=== PATIENT | male | born 1955 | race Caucasian/White ===

== ENCOUNTER 2016-08-01 15:19 | Inpatient (IN) | payer OTHER ==
[2016-08-01] MEDS ORDERED: Aspirin Low Dose CHEW TAB* 81 MG PO ONE (15:34)
--- NOTE | 2016-08-01 16:04 | RAD ---
INDICATION: Palpitations. COMPARISON: Comparison is made with a prior chest x-ray study from April 08, 2015. TECHNIQUE: A portable view of the chest was obtained. FINDINGS: Cardiac and mediastinal contours appear to be within normal limits. There is elevation of the left hemidiaphragm which is progressed from the prior exam. The lungs are clear. No pleural effusion is seen. IMPRESSION: 1. NO EVIDENCE FOR ACUTE FINDING. 2. ELEVATED LEFT HEMIDIAPHRAGM.
[2016-08-01] MEDS ORDERED: Diazepam SYRINGE* 5 MG/ML SYRINGE IV ONE ×2 (16:19→17:50)
[2016-08-01 16:26] LABS: Urine Bilirubin Negative (Negative); Urine Glucose Negative (Negative); Urine Nitrite Negative (Negative)
[2016-08-01 16:26] LABS: Hematocrit 45 % (42-52); Hemoglobin 15.7 g/dl (14.0-18.0); Mean Corpuscular HGB Conc 35 g/dl (31-36); Mean Corpuscular Hemoglobin 33 pg (27-31); Mean Corpuscular Volume 97 fL (80-94); Mean Platelet Volume 9 um3 (7.4-10.4); Red Cell Distribution Width 14 % (10.5-15)
[2016-08-01 16:39] LABS: BUN/Creatinine Ratio 8.6 (8-20); Calcium 8.6 mg/dL (8.6-10.3); EGFR Non-African American 114.3 (>60); Magnesium 1.9 mg/dL (1.9-2.7); Potassium 3.3 mmol/L (3.5-5.0); Total Bilirubin 0.6 mg/dL (0.2-1.0); Troponin I 0.02 ng/mL (<0.04)
[2016-08-01 16:49] LABS: TSH (Thyroid Stimulating Horm) 0.39 mcIU/mL (0.34-5.60)
[2016-08-01] MEDS ORDERED: Diltiazem TAB* 60 MG PO ONE (17:04)
[2016-08-01] MEDS ORDERED: Diltiazem IV* 5 MG/ML 5 ML VIAL (for loading dose/IV Push) (25 MG) IV SLOW PU ONE (17:08)
[2016-08-01] MEDS ORDERED: Diazepam SYRINGE* 5 MG/ML SYRINGE ONE (17:51)
[2016-08-01] MEDS ORDERED: Metoprolol Tartrate IV* 1 MG/ML 5 ML VIAL IV PRN (18:22)
[2016-08-01] MEDS ORDERED: Ondansetron INJ* 2 MG/ML VIAL IV PRN (18:22)
[2016-08-01] MEDS ORDERED: Thiamine IV* 100 MG, Folic Acid IV* 1 MG, Multiple Vitamin IV ADULT* 10 ML in NS 0.9% 1... IV ONE (18:22)
[2016-08-01] MEDS ORDERED: Acetaminophen TAB* 325 MG PO PRN ×2 (18:22)
[2016-08-01] MEDS ORDERED: NS 0.9% 1000 ML* 1,000 ML IV SCH (18:30)
[2016-08-01] MEDS ORDERED: NS 0.9% 1000 ML* 1,000 ML IV ONE (18:32)
[2016-08-01] MEDS ORDERED: Potassium Chlor TAB* 20 MEQ TAB.ER PO ONE (18:33)
[2016-08-01 19:19] LABS: T4 4.48 mcg/mL (6.09-12.23)
[2016-08-01] MEDS: Diazepam TAB(*) 10 MG PO SCH (19:36)
[2016-08-01] MEDS: Carvedilol TAB* 25 MG PO SCH ×2 (21:08→21:18)
[2016-08-01] MEDS: Heparin VIAL(*) 5000 UNITS/ML VIAL (FIVE THOUSAND) SUBCUT SCH (21:18)
--- NOTE | 2016-08-01 21:23 | HP ---
HISTORY AND PHYSICAL: DATE OF ADMISSION: 08/01/16 PRIMARY CARE PROVIDER: Dr. Pino. ATTENDING PHYSICIAN WHILE IN THE HOSPITAL: Dr. Starr Michel * (report dictated by Quirino Machado, GERALDINE). CHIEF COMPLAINT: "Didn't feel right." HISTORY OF PRESENT ILLNESS: Mr. Brown is a 60-year-old male patient with a well-documented history of alcohol abuse. He comes in today. He is intoxicated currently. He is really unable to give a good history, but he says that he came in today because he just did not feel right. When asked him to elaborate on this, he says that "I do not know how to explain it. I just did not feel right." He says he tried drinking 4 beers and smoking some cigarettes thinking that would help him, but he said he just did not feel right. I specifically asked him if he was having any chest pain, shortness of breath, he had been sick recently, any nausea, vomiting, diarrhea, fevers, chills, or cough , and he denied these complaints. He says that he just did not feel right. He decided to come in. He says he has not taken his medications in about a week and a half to 2 weeks. He was evaluated by Dr. Carbone and was found to be in AFib with RVR. His blood pressure was elevated and Dr. Carbone was concerned that he was going through EtOH withdrawal despite him having alcohol level of 312. Because of this, we were asked to evaluate in consult. PAST MEDICAL HISTORY: Significant for: 1. AFib. 2. EtOH abuse. 3. Spinal stenosis. 4. Cervical spine fracture for which he required transfer to [facility]. 5. SVT. 6. Cardiomyopathy. 7. Hypertension. PAST SURGICAL HISTORY: He has had: 1. Wrist surgery. 2. Sounds like he has had a Halo brace placed for the cervical spine fracture which now had been removed. MEDICATIONS: Home meds according to the list that he gave us include: 1. Coreg 25 mg p.o. b.i.d. 2. Losartan 50 mg daily. 3. Benadryl 50 mg p.o. t.i.d. as needed. ALLERGIES TO MEDICATIONS: Include PENICILLIN, TETRACYCLINE, LISINOPRIL, and ATIVAN. FAMILY HISTORY: Both his parents had hypertension. SOCIAL HISTORY: He does drink alcohol on a daily basis. He does not quantify how much. He says it is more than what the average person drinks every day. He does smoke about a pack of cigarettes a day. Surrogate decision maker is his friend, Luca. REVIEW OF SYSTEMS: There is no documented fever. He denied having any significant weight change. There was no double vision. There is no ear discharge. He denied having any rhinorrhea. There is no sore throat. No thyroid enlargement. Denies having any chest pain. There is no orthopnea. No nocturnal dyspnea. There is no abdominal pain. No nausea, no vomiting. No dysuria, no frequency. No seizure, no loss of consciousness. No pruritus and no skin ulcerations. Review of 14 systems completed, all others negative. PHYSICAL EXAMINATION GENERAL: At this time, Mr. Brown is a 60-year-old male patient. He is sitting in the ER stretcher. He does not appear to be in acute distress. VITAL SIGNS: Reveal blood pressure 135/72, pulse 111, respirations 20, O2 sat 99%, and temperature 98.1. HEENT: Head is atraumatic and normocephalic. Eyes: EOMs intact. Sclerae are anicteric and not pale. Throat: Oral mucosa appears to be moist. No oropharyngeal erythema. NECK: Supple. LUNGS: Clear to auscultation bilaterally. No wheezes, rales, or rhonchi. HEART: Sounds S1, S2. Irregularly irregular rate. No murmurs, rubs, or gallops. ABDOMEN: Soft, flat, and nontender. Bowel sounds present. EXTREMITIES: Pulses were 2+ throughout. He is able to move all four extremities , 5/5 strength. NEUROLOGIC: The patient is awake, he is alert, and he is oriented x3, but his words are slurring. He appears to be uncoordinated consistent with alcohol intoxication. Peanut Grader are equal. His tongue is midline. He had no gross focal deficits. SKIN: Intact. DIAGNOSTIC STUDIES/LAB DATA: Today, revealed WBC of 6.0, RBC of 4.70, hemoglobin 15.7, hematocrit of 45, platelet count of 120. The INR was 0.86, the PTT was 30.3. The sodium was 141, potassium 3.3, chloride of 103, bicarb 26 , BUN 6, creatinine of 0.70, glucose 93, lactate 4.4, calcium 8.6. Total bili 0.6. Mag 1.9. AST 70, ALT 47, alk phos 65. Troponin 0.02. Albumin of 4.0. TSH is normal. Urine obtained negative. Toxicology showed an alcohol level of 319. He had a chest x-ray obtained today which revealed no evidence for acute finding , elevated left hemidiaphragm. He had an EKG obtained today as well which showed atrial fibrillation with a rapid ventricular response, rate of 109, PVCs. Old medical records were reviewed. ASSESSMENT AND PLAN: Mr. Brown is a 60-year-old male patient coming in to the ER today with complaints of just not feeling right; on evaluation, found to be in atrial fibrillation with rapid ventricular response and found to be highly intoxicated. He will be admitted under observation status for: 1. Atrial fibrillation with rapid ventricular response: At this point, I will reinstate his Coreg and I will order p.r.n. Lopressor for his atrial fibrillation, for heart rate greater than 100. I am not going to anticoagulate him because of his history of significant falls and multiple trauma from the fall. I think the risk of the bleeding far outweighs the benefit at this point. He can follow up with his primary for this. 2. EtOH abuse with intoxication: At this point, I will go ahead and order banana bag. Put him on a WA protocol and we will continue to follow. 3. Cardiomyopathy: Continue his Coreg and Cozaar. He does not appear to be in failure. We will monitor. 4. Spinal stenosis: P.r.n. Tylenol has been ordered. 5. Hypokalemia: We will go ahead and replace the potassium. 6. Lactic acidosis: Etiology is unclear. I question if this is from the alcohol abuse. He had decreased clearance from his liver. He does not appear to be actively infected. There is no fever. No white count. No obvious source. So, I will just hydrate him and repeat this tonight. 7. DVT prophylaxis: Place him on heparin subcu. 8. Code status: Full code. TIME SPENT: On the admission was approximately 60 minutes; greater than half the time was spent [id number] with the patient obtaining my history and physical, other half the time spent going over the plan of care with the patient and implementing plan of care. I did discuss the plan of care with my attending, Dr. Michel; she is in agreement. QUIRINO MACHADO NP CC: Dr. Pino* [id number]/CPS #: [id number] CARLY
[2016-08-02] MEDS: Diazepam TAB(*) 10 MG PO SCH ×3 (02:07→22:44)
[2016-08-02] MEDS ORDERED: Al Hydrox/Mg Hydrox/Simet LIQ* 30 ML UDC PO PRN (04:26)
[2016-08-02 05:02] LABS: Hematocrit 37 % (42-52); Hemoglobin 12.8 g/dl (14.0-18.0); Mean Corpuscular HGB Conc 34 g/dl (31-36); Mean Corpuscular Hemoglobin 33 pg (27-31); Mean Corpuscular Volume 97 fL (80-94); Mean Platelet Volume 9 um3 (7.4-10.4); Red Blood Count 3.84 10^6/ul (4.0-5.4); Red Cell Distribution Width 14 % (10.5-15); White Blood Count 5.5 10^3/ul (3.5-10.8)
[2016-08-02 05:04] LABS: Add Diff/Slide Review? Slide Review Added; Comments Flag Yes
[2016-08-02 05:18] LABS: BUN/Creatinine Ratio 12.5 (8-20); Calcium 8.1 mg/dL (8.6-10.3); EGFR African American 190.1 (>60); EGFR Non-African American 147.8 (>60); Potassium 3.8 mmol/L (3.5-5.0)
[2016-08-02] MEDS: Heparin VIAL(*) 5000 UNITS/ML VIAL (FIVE THOUSAND) SUBCUT SCH ×3 (05:22→22:32)
[2016-08-02] MEDS: Diazepam TAB(*) 10 MG PO PRN ×3 (06:18→16:20)
[2016-08-02] MEDS: Carvedilol TAB* 25 MG PO SCH ×2 (08:33→20:27)
[2016-08-02] MEDS: Folic Acid TAB* 1 MG PO SCH (08:33)
[2016-08-02] MEDS: Multivitamins/Minerals TAB PO SCH (08:34)
[2016-08-02] MEDS: Famotidine TAB* 20 MG PO SCH ×2 (08:34→08:43)
[2016-08-02] MEDS: Losartan TAB* 25 MG PO SCH (08:34)
[2016-08-02] MEDS: Thiamine TAB* 100 MG TAB PO SCH (08:34)
[2016-08-02] MEDS ORDERED: Thiamine TAB* 100 MG TAB PO SCH (09:00)
--- NOTE | 2016-08-02 14:57 | PN ---
Subjective Date of Service: 08/02/16 Interval History: HOSPITALIST PROGRESS NOTE Patient seen and examined at bedside. He c/o anxiety and is requesting his next Valium. Had some chest pain earlier while drinking orange juice, but now resolved. Family History: Unchanged from Admission Social History: Unchanged from Admission Past Medical History: Unchanged from Admission Objective Active Medications: Acetaminophen (Tylenol Tab*) 650 mg PO Q4H PRN PRN Reason: FEVER/PAIN Al Hydrox/Mg Hydrox/Simethicone (Maalox Plus*) 30 ml PO Q4H PRN PRN Reason: INDIGESTION Last Admin: 08/02/16 04:36 Dose: 30 ml Carvedilol (Coreg Tab*) 25 mg PO BID [facility] Last Admin: 08/02/16 08:33 Dose: 25 mg Diazepam (Valium Tab(*)) 10 mg PO Q12H [facility] PRN Reason: Taper Stop: 08/04/16 14:59 Last Admin: 08/02/16 11:15 Dose: 10 mg Diazepam (Valium Tab(*)) 0 mg PO .PER WAM SCORE PRN; Protocol PRN Reason: AGITATION Last Admin: 08/02/16 08:34 Dose: 5 mg Famotidine (Pepcid Tab*) 20 mg PO DAILY [facility] Last Admin: 08/02/16 08:43 Dose: Not Given Folic Acid (Folvite Tab*) 1 mg PO DAILY [facility] Last Admin: 08/02/16 08:33 Dose: 1 mg Heparin Sodium (Porcine) (Heparin Vial(*)) 5,000 units SUBCUT Q8HR [facility] Last Admin: 08/02/16 14:09 Dose: Not Given Losartan Potassium (Cozaar Tab*) 50 mg PO DAILY [facility] Last Admin: 08/02/16 08:34 Dose: 50 mg Metoprolol Tartrate (Lopressor Iv*) 5 mg IV Q6H PRN PRN Reason: HEART RATE/PULSE Multivitamins/Minerals (Theragran/Minerals Tab*) 1 tab PO DAILY [facility] Last Admin: 08/02/16 08:34 Dose: 1 tab Ondansetron HCl (Zofran Inj*) 4 mg IV Q6H PRN PRN Reason: NAUSEA Last Admin: 08/02/16 00:26 Dose: 4 mg Thiamine HCl (Vitamin B-1 Tab*) 100 mg PO DAILY [facility] Last Admin: 08/02/16 08:34 Dose: 100 mg Vital Signs 08/02/16 14:09 Temperature 98.4 F Pulse Rate 85 Respiratory 16 Rate Blood Pressure 126/79 (mmHg) O2 Sat by Pulse 97 Oximetry Oxygen Devices in Use Now: None Appearance: Elderly male, appears older than stated age, lying in bed in NAD. Eyes: No Scleral Icterus Ears/Nose/Mouth/Throat: Mucous Membranes Moist Neck: Trachea Midline Respiratory: Symmetrical Chest Expansion and Respiratory Effort, Clear to Auscultation Cardiovascular: RRR - Normal S1 and S2 Abdominal: NL Sounds; No Tenderness; No Distention Neurological: Alert and Oriented x 3, NL Muscle Strength and Tone Lines/Tubes/Other Access: Clean, Dry and Intact Peripheral IV Nutrition: Taking PO's Result Diagrams: 08/02/16 04:34 08/02/16 04:34 Assess/Plan/Problems-Billing Assessment: Mr. Brown is a 60yo M with PMH of alcoholism, Afib, spinal stenosis, cervical spine fracture requiring transfer to [facility], cardiomyopathy, HTN, who presented to ED with c/o feeling "funny all over", found to be in Afib RVR and intoxicated with ETOH level 319. - Patient Problems (1) Atrial fibrillation with rapid ventricular response Comment: - Suspect secondary to non-compliance with beta-blockers and withdrawal. - Controlled now on usual Caverdilol dose. - Anticoagulation contraindicated in the setting of active alcoholism and high risk for falls. (2) Alcohol withdrawal Comment: - Continue WAM protocol with Valium. - consult to assist patient with outpatient resources. He's not interested in inpatient rehab. (3) Chest pain Comment: - Suspect GI in nature. - No new EKG changes and serial troponins are negative. - Start Famotidine. (4) DVT prophylaxis Comment: - SQ heparin. (5) Full code status Status and Disposition: Inpatient. Anticipate d/c in AM.
[2016-08-02] MEDS ORDERED: Diazepam TAB(*) 5 MG ONE (22:42)
[2016-08-03] MEDS: Heparin VIAL(*) 5000 UNITS/ML VIAL (FIVE THOUSAND) SUBCUT SCH (06:55)
[2016-08-03] MEDS: Folic Acid TAB* 1 MG PO SCH (08:37)
[2016-08-03] MEDS: Famotidine TAB* 20 MG PO SCH (08:37)
[2016-08-03] MEDS: Carvedilol TAB* 25 MG PO SCH (08:37)
[2016-08-03] MEDS: Thiamine TAB* 100 MG TAB PO SCH (08:38)
[2016-08-03] MEDS: Multivitamins/Minerals TAB PO SCH (08:38)
[2016-08-03] MEDS: Losartan TAB* 25 MG PO SCH (08:38)
[2016-08-03 10:27] VITALS: BP 104/79
[2016-08-03] MEDS ORDERED: Loperamide CAP* 2 MG PO PRN (10:32)
--- NOTE | 2016-08-04 02:57 | DS ---
CC: Dr. Pino DISCHARGE SUMMARY: DATE OF ADMISSION: 08/02/16 DATE OF DISCHARGE: 08/03/16 DISCHARGE DIAGNOSES: 1. Atrial fibrillation with rapid ventricular rate, secondary to noncompliance with medication. 2. Alcohol withdrawal. 3. Alcoholism. 4. Lactic acidosis. 5. Alcohol intoxication. SECONDARY DIAGNOSES: 1. Atrial fibrillation. 2. Alcohol abuse. 3. Spinal stenosis. 4. History of cervical spine fracture following a fall while intoxicated. 5. Supraventricular tachycardia. 6. Cardiomyopathy. 7. Hypertension. MEDICATIONS: 1. Benadryl 50 mg p.o. t.i.d. as needed for itching. 2. Losartan 50 mg p.o. daily. 3. Carvedilol 25 mg p.o. b.i.d. NEW MEDICATIONS: 1. Thiamine 100 mg p.o. daily. 2. Multivitamin 1 tablet p.o. daily. 3. Folic acid 1 mg p.o. daily. 4. Famotidine 20 mg p.o. daily. HOSPITAL COURSE: Mr. Brown is a 60-year-old male with a past medical history stated above who p resented to the emergency room on 08/01/16, with complaints of not feeling right. At the time he ar rived to the emergency room, he was intoxicated, but by the time the hospitalist service was called, there was some suspicion that he was starting to withdrawal. The patient is not compliant with his beta-ericka and was found to be in atrial fibrillation with rapid ventricular rate. He was admitt ed for further evaluation. His carvedilol was resumed at his usual dose with good heart rate control. The patient is not a can didate for anticoagulation due to his history of alcohol abuse and frequent falls including a major one with cervical spine fracture in the past. The patient was on a WA protocol with Valium and he had improvement of his symptoms. He was seen b y a social work supervisor, but he was not interested in any resources at this point. He states that he will be able to quit by himself. He was advised that if he continues to drink, he will have progression of disease, permanent damage and this will possibly cause his . He verbalizes understanding a nd states that he is motivated to quit at this time. PHYSICAL EXAMINATION: Vital Signs: Temperature 98.8, heart rate is 91, respiratory rate 16, oxygen saturation 96% on room air, blood pressure is 104/79. General: The patient is elderly male with di sheveled appearance, sitting up in bed, in no acute distress. CVS: Normal S1 and S2. Regular rate and rhythm. Chest: Breath sounds bilaterally with no added sounds. Abdomen: Soft. Bowel sounds present. Extremities: No edema. Neuro: He is alert, awake, and oriented x3. Able to move all 4 extremities. DIET: Heart-healthy diet. ACTIVITY: As tolerated. DISPOSITION: To home. STATUS WHILE IN THE HOSPITAL: Inpatient. Please keep in mind that this is a summarized version of this patient's hospital stay. He will foll ow up with Dr. Pino on 08/07/16 at 8:40 a.m. If you need more information, please feel free to ca ll me at [phone] or please obtain the full medical records. TIME SPENT: Approximately 45 minutes was spent to complete this discharge. [id number]/[facility] #: [id number]
--- NOTE | 2016-08-09 17:43 | ED ---
Ambrosio Lares Billy, scribed for Roberto Carbone MD on 08/01/16 at 1616 . Complex/Multi-Sys Presentation - HPI Summary HPI Summary: Patient is a 60 year-old male coming to [facility] with a complaint that "nothing feels right" today. He states that he feels very anxious here in the ED. Patient admits to consuming alcohol today. He presents to the ED with rapid afib. Denies any chest pain, nausea, or vomiting. Patient admits to drinking 8 beers a day, and he also states that he has had withdrawal symptoms in the past. He also states that he has stopped taking all of his prescribed medications. - History Of Current Complaint Chief Complaint: EDDysrhythmPalp Time Seen by Provider: 08/01/16 15:34 Hx Obtained From: Patient Onset/Duration: Gradual Onset Timing: Constant Severity Currently: Moderate Severity Initially: Moderate Aggravating Factor(s): n/a Alleviating Factor(s): n/a Associated Signs And Symptoms: Positive: Palpitations, Other - anxious. Negative: Chest Pain, Nausea, Vomiting - Allergies/Home Medications Allergies/Adverse Reactions: Allergies Allergy/AdvReac Type Severity Reaction Status Date / Time Tetracycline Allergy Severe RASH, Verified 05/25/16 13:41 ITCHING, SWELLING Lisinopril Allergy Mild Coughing Verified 05/25/16 13:41 Penicillins Allergy Unknown Unknown Verified 05/25/16 13:41 Reaction Details Lorazepam [From Ativan] Allergy agitation, Verified 05/25/16 13:41 combative Home Medications: Home Medications Carvedilol TAB* [Coreg TAB*] 25 mg PO BID 08/01/16 [History Confirmed 08/01/16] Losartan TAB* [Cozaar TAB*] 50 mg PO DAILY 08/01/16 [History Confirmed 08/01/16] diPHENhydraMINE PO* [Benadryl PO 50 MG CAP*] 50 mg PO TID PRN 08/01/16 [History Confirmed 08/01/16] PMH/Surg Hx/FS Hx/Imm Hx Endocrine/Hematology History: Denies: Hx Anticoagulant Therapy, Hx Diabetes, Hx Thyroid Disease Cardiovascular History: Reports: Hx Atrial Fibrillation, Hx Hypertension Denies: Hx Pacemaker/ICD Respiratory History: Denies: Hx Asthma, Hx Chronic Obstructive Pulmonary Disease (COPD) History: Denies: Hx Dialysis, Hx Renal Disease Sensory History: Reports: Hx Cataracts, Hx Contacts or Glasses, Hx Eye Injury Denies: Hx Hearing Aid Opthamlomology History: Reports: Hx Cataracts, Hx Contacts or Glasses, Hx Eye Injury Neurological History: Denies: Hx Dementia, Hx Developmental Delay, Hx Headaches, Hx Migraine, Hx Nerve Disease, Hx Seizures, Hx Spinal Cord Injury, Hx Transient Ischemic Attacks (TIA), Other Neuro Impairments/Disorders Psychiatric History: Reports: Hx Anxiety, Hx Substance Abuse - ETOH Denies: Hx Panic Disorder, Hx of Violent Episodes Against Others - Cancer History Hx Chemotherapy: No Hx Radiation Therapy: No - Surgical History Surgery Procedure, Year, and Place: Cataract surgery 2+years ago. CARDIAC ABLATION. CSP - FUSION. MOLE FROM ARM - ALL REMOVED - [facility] - Immunization History Date of Tetanus Vaccine: unknown Date of Influenza Vaccine: None Infectious Disease History: No Infectious Disease History: Denies: Hx Hepatitis, Hx Human Immunodeficiency Virus (HIV), Hx of Known/ Suspected MRSA, Hx Shingles, Hx Tuberculosis, Hx Known/Suspected VRE, Hx Known/ Suspected VRSA, History Other Infectious Disease, Traveled Outside the [place] in Last 30 Days - Family History Family History: Notable for fathre with BPH. Mother had chronic pain. Brother of alcohol abuse complications. - Social History Alcohol Use: Daily Alcohol Amount: alcohol abuse Hx Substance Use: No Substance Use Type: Reports: None Substance Use Comment - Amount & Last Used: no known, no tox screen run upon pt presentation to ED Hx Tobacco Use: Yes Smoking Status (MU): Heavy Every Day Tobacco Smoker Type: Cigarettes Length of Time of Smoking/Using Tobacco: 35+ years Have You Smoked in the Last Year: Yes Review of Systems Constitutional: Other - "nothing feels right" Negative: Fever, Chills Negative: Erythema Negative: Ear Ache Positive: Palpitations. Negative: Chest Pain Negative: Shortness Of Breath, Cough Negative: Abdominal Pain, Vomiting, Nausea Negative: dysuria, flank pain Negative: Myalgia, Edema Negative: Rash Positive: Anxious All Other Systems Reviewed And Are Negative: Yes Physical Exam - Summary Physical Exam Summary: Constitutional: Well-developed, Well-nourished, Alert. (-) Distressed Skin: Warm, Dry HENT: Normocephalic; Atraumatic Eyes: Conjunctiva normal Neck: Musculoskeletal ROM normal neck. (-) JVD, (-) Stridor, (-) Tracheal deviation Cardio: Rhythm irregular, rate tachycardia, Heart sounds normal; Intact distal pulses; The pedal pulses are 2+ and symmetric. Radial pulses are 2+ and symmetric. (-) Murmur Pulmonary/Chest wall: Effort normal. (-) Respiratory distress, (-) Wheezes, (-) Rales Abd: Soft, (-) Tenderness, (-) Distension, (-) Guarding, (-) Rebound Musculoskeletal: (-) Edema Lymph: (-) Cervical adenopathy Neuro: Alert, Oriented x3 Psych: Mood and affect Normal Triage Information Reviewed: Yes Vital Signs On Initial Exam: Initial Vitals Temp Pulse Resp BP Pulse Ox 97.5 F 98 20 151/99 98 08/01/16 15:21 08/01/16 15:21 08/01/16 15:21 08/01/16 15:21 08/01/16 15:21 Vital Signs Reviewed: Yes - Pk Coma Scale Coma Scale Total: 15 Diagnostics - Vital Signs Vital Signs Temp Pulse Resp BP Pulse Ox 08/01/16 15:43 99 08/01/16 15:33 98.1 F 111 20 135/72 99 08/01/16 15:21 97.5 F 98 20 151/99 98 - Laboratory Result Diagrams: 08/01/16 15:58 08/01/16 15:58 Lab Statement: Any lab studies that have been ordered have been reviewed, and results considered in the medical decision making process. - Radiology CXR Radiology Interpretation Completed By: Radiologist - EKG 1550 EKG Interpretation: atrial fibrillation 109 bpm, RVR, frequent PVCs Complex Multi-Symp Course/Dx Assessment/Plan: Patient is a 60 year-old male with a history of alcohol abuse coming to [facility] for evaluation of general malaise today. Serum alcohol 319. Patient care discussed with Dr. Zaman who admitted the patient to her services. All medications reviewed this visit. - Diagnoses Provider Diagnoses: Alcohol withdrawal, Atrial fibrillation with RVR - Physician Notifications Discussed Care Of Patient With: Dr. Stephens (hospitalist) at 1755: accepts admission. Discharge - Discharge Plan Condition: Stable Disposition: ADMITTED TO [facility] Referrals: Dexter Pino MD [Primary Care Provider] - The documentation as recorded by the Ambrosio hays Billy accurately reflects the service I personally performed and the decisions made by me, Roberto Carbone MD.
== END 2016-08-03 11:54 | disposition home or self-care (01) | DRG 201 ==
LOC: ED 15:19 → MEDTELE 18:17 → OBSVTOIN 08-02 15:08
PROVIDERS: ADMIT Pediatrics; ATTEND Internal Medicine
DX: I48.91 Unspecified atrial fibrillation (principal); F10.239 Alcohol dependence with withdrawal, unspecified; E87.2 Acidosis; I42.9 Cardiomyopathy, unspecified; F10.229 Alcohol dependence with intoxication, unspecified; I47.1 Supraventricular tachycardia; Z91.81 History of falling; Y90.9 Presence of alcohol in blood, level not specified; M48.00 Spinal stenosis, site unspecified; I10 Essential (primary) hypertension; Z88.0 Allergy status to penicillin; Z88.1 Allergy status to other antibiotic agents; Z88.8 Allergy status to other drugs, medicaments and biological substances; Z82.49 Family history of ischemic heart disease and other diseases of the circulatory system; F17.210 Nicotine dependence, cigarettes, uncomplicated; E87.6 Hypokalemia; F41.9 Anxiety disorder, unspecified; Y90.8 Blood alcohol level of 240 mg/100 ml or more; Z91.14 Patient's other noncompliance with medication regimen
CPT/HCPCS: 36415; 71010; 80048; 80053; 80320; 81003; 83605; 83735; 84436; 84443; 84484; 85025; 85610; 85730; 93005; A9270-GY; G0378; G0480; J1644; J2405; J3360

== ENCOUNTER 2016-10-08 09:09 | Inpatient (IN) | payer OTHER ==
[2016-10-08] MEDS ORDERED: Aspirin Low Dose CHEW TAB* 81 MG PO ONE (09:29)
[2016-10-08] MEDS ORDERED: Thiamine IV* 100 MG, Folic Acid IV* 1 MG, Multiple Vitamin IV ADULT* 10 ML in NS 0.9% 1... IV ONE (09:50)
[2016-10-08] MEDS ORDERED: Diazepam TAB(*) 5 MG PO ONE (10:07)
--- NOTE | 2016-10-08 10:08 | ED ---
Palpitations / Dysrhythmia - HPI Summary HPI Summary: presents to ED today via ambulance c/o weakness he was unable to get up to mow the lawn. Patient states he drinks beer every day--he does not use other drugs has been drinking daily from teenage years--last sober about 2 years ago-- denies cp, sob, nausea, vomiting, diarrhea, Does report an unwitnessed fall "a few days ago" and his memory of the incident was his partner asking "what was he doing on the kitchen floor" Patient is here today hoping to be admitted and detox from alcohol - History of Current Complaint Chief Complaint: EDGeneral Time Seen by Provider: 10/08/16 09:30 Hx Obtained From: Patient Onset/Duration: Gradual Onset - of weakness-has a [place] [facility] history with a-fib but does report being unsure if he takes his medications or not, Lasting Weeks, Worse Since - this morning he reports increased weakness Timing: Constant Severity Initially: Mild Severity Currently: Mild Character: Irregular Aggravating: Nothing Alleviating: Nothing Associated Signs & Symptoms: Syncope - weakness - Allergy/Home Medications Allergies/Adverse Reactions: Allergies Allergy/AdvReac Type Severity Reaction Status Date / Time Tetracycline Allergy Severe RASH, Verified 10/08/16 09:28 ITCHING, SWELLING Lisinopril Allergy Mild Coughing Verified 10/08/16 09:28 Penicillins Allergy Unknown Unknown Verified 10/08/16 09:28 Reaction Details Lorazepam [From Ativan] Allergy agitation, Verified 10/08/16 09:28 combative Home Medications: Home Medications Carvedilol [Coreg] 25 mg PO BID 10/08/16 [History Confirmed 10/08/16] Famotidine [Pepcid] 20 mg PO DAILY 10/08/16 [History Confirmed 10/08/16] Losartan TAB* [Cozaar TAB*] 50 mg PO DAILY 10/08/16 [History Confirmed 10/08/16] Meloxicam 7.5 mg PO Q12H PRN 10/08/16 [History Confirmed 10/08/16] PMH/Surg Hx/FS Hx/Imm Hx Previously Healthy: No Endocrine/Hematology History: Denies: Hx Anticoagulant Therapy, Hx Diabetes, Hx Thyroid Disease Cardiovascular History: Reports: Hx Atrial Fibrillation, Hx Hypertension Denies: Hx Pacemaker/ICD Respiratory History: Denies: Hx Asthma, Hx Chronic Obstructive Pulmonary Disease (COPD) History: Denies: Hx Dialysis, Hx Renal Disease Sensory History: Reports: Hx Cataracts, Hx Contacts or Glasses, Hx Eye Injury Denies: Hx Hearing Aid Opthamlomology History: Reports: Hx Cataracts, Hx Contacts or Glasses, Hx Eye Injury Neurological History: Denies: Hx Dementia, Hx Developmental Delay, Hx Headaches, Hx Migraine, Hx Nerve Disease, Hx Seizures, Hx Spinal Cord Injury, Hx Transient Ischemic Attacks (TIA), Other Neuro Impairments/Disorders Psychiatric History: Reports: Hx Anxiety, Hx Substance Abuse - ETOH Denies: Hx Panic Disorder, Hx of Violent Episodes Against Others - Cancer History Hx Chemotherapy: No Hx Radiation Therapy: No - Surgical History Surgery Procedure, Year, and Place: Cataract surgery 2+years ago. CARDIAC ABLATION. CSP - FUSION. MOLE FROM ARM - ALL REMOVED - [facility] - Immunization History Date of Tetanus Vaccine: unknown Date of Influenza Vaccine: None Infectious Disease History: No Infectious Disease History: Denies: Hx Hepatitis, Hx Human Immunodeficiency Virus (HIV), Hx of Known/ Suspected MRSA, Hx Shingles, Hx Tuberculosis, Hx Known/Suspected VRE, Hx Known/ Suspected VRSA, History Other Infectious Disease, Traveled Outside the [place] in Last 30 Days - Family History Known Family History: Positive: Unknown - Level 5 Caveat due to EtOH intoxication. Family History: Notable for fathre with BPH. Mother had chronic pain. Brother of alcohol abuse complications. - Social History Occupation: Retired Lives: With Family Alcohol Use: Daily Alcohol Amount: 12 beers daily Hx Substance Use: No Substance Use Type: Reports: None Substance Use Comment - Amount & Last Used: no known, no tox screen run upon pt presentation to ED Hx Tobacco Use: Yes Smoking Status (MU): Heavy Every Day Tobacco Smoker Type: Cigarettes Length of Time of Smoking/Using Tobacco: 35+ years Have You Smoked in the Last Year: Yes Review of Systems Constitutional: Other Positive: Fatigue Eyes: Negative ENT: Negative Cardiovascular: Other Positive: Palpitations Respiratory: Negative Gastrointestinal: Negative Genitourinary: Negative Musculoskeletal: Other Positive: Other - weakness Skin: Negative Positive: Weakness Psychological: Other All Other Systems Reviewed And Are Negative: Yes Physical Exam Triage Information Reviewed: Yes Vital Signs On Initial Exam: Initial Vitals Temp Pulse Resp BP Pulse Ox 97.2 F 99 18 112/79 96 10/08/16 09:15 10/08/16 09:15 10/08/16 09:15 10/08/16 09:15 10/08/16 09:15 Vital Signs Reviewed: Yes Appearance: Positive: No Pain Distress - no acute pain, Ill-Appearing - chronic poor wellness Skin: Positive: Warm, Skin Color Reflects Adequate Perfusion, Soft Head/Face: Positive: Normal Head/Face Inspection. Negative: Temporal Artery Tenderness, TMJ Tenderness Eyes: Positive: Normal, EOMI, ROSA, Conjunctiva Clear ENT: Positive: Normal ENT inspection, Hearing grossly normal, Pharynx normal, TMs normal. Negative: Nasal congestion, Nasal drainage, Tonsillar swelling, Tonsillar exudate, Trismus, Muffled/hoarse voice, Dental tenderness Neck: Positive: Supple, Nontender, No Lymphadenopathy, Other: - negative bruits Respiratory/Lung Sounds: Positive: Clear to Auscultation, Breath Sounds Present. Negative: Unable to speak in full sentences Cardiovascular: Positive: Pulses are Symmetrical in both Upper and Lower Extremities, IRR. Negative: Murmur, Leg Edema Left, Leg Edema Right Abdomen Description: Positive: Nontender, Soft. Negative: CVA Tenderness (R), CVA Tenderness (L), Pulsatile Mass Bowel Sounds: Positive: Present Musculoskeletal: Positive: Normal, Other - general weakness. Negative: Tamara Sign Left, Tamara Sign Right, Edema Left, Edema Right Neurological: Positive: Alert, Oriented to Person Place, Time Psychiatric: Positive: Normal, Affect/Mood Appropriate AVPU Assessment: Alert - [place] Coma Scale Best Eye Response: 4 - Spontaneous Best Motor Response: 6 - Obeys Commands Best Verbal Response: 5 - Oriented Coma Scale Total: 15 Diagnostics - Vital Signs Vital Signs Temp Pulse Resp BP Pulse Ox 10/08/16 10:00 23 108/81 10/08/16 09:59 97 10/08/16 09:30 93 20 112/83 98 10/08/16 09:23 95 26 97 10/08/16 09:22 97.2 F 96 18 112/79 98 10/08/16 09:21 112/79 10/08/16 09:15 97.2 F 99 18 112/79 96 - Laboratory Result Diagrams: 10/08/16 10:00 10/08/16 10:00 Lab Statement: Any lab studies that have been ordered have been reviewed, and results considered in the medical decision making process. Course/Dx - Course Assessment/Plan: [place] [facility] [place] Diagnoses Provider Diagnoses: Alcohol withdrawal, Acute alcohol abuse, Atrial fibrillation, Weakness generalized - Physician Notifications Discussed Care Of Patient With: Starr Torres Time Discussed With Above Provider: 10:30 Admit/Transition Orders Completed By ED Provider: No Discharge - Discharge Plan Condition: Fair Disposition: ADMITTED TO [facility]
[2016-10-08 10:15] LABS: Hematocrit 45 % (42-52); Hemoglobin 15.4 g/dl (14.0-18.0); Mean Corpuscular HGB Conc 34 g/dl (31-36); Mean Corpuscular Hemoglobin 35 pg (27-31); Mean Corpuscular Volume 102 fL (80-94); Mean Platelet Volume 10 um3 (7.4-10.4); Red Blood Count 4.44 10^6/ul (4.0-5.4); Red Cell Distribution Width 14 % (10.5-15); White Blood Count 7.3 10^3/ul (3.5-10.8)
[2016-10-08 10:22] LABS: Comments Flag Yes
[2016-10-08 10:23] LABS: Add Diff/Slide Review? Slide Review Added
--- NOTE | 2016-10-08 10:24 | RAD ---
Indication: Weakness. Atrial fibrillation. Alcohol abuse. Comparison: August 01, 2016 Technique: Upright AP 1000 hours Report: Unchanged mild elevation of the LEFT hemidiaphragm. No pulmonary consolidation, focal pulmonary lesion, pleural effusion, pneumothorax. Upper normal heart size accounting for AP technique. Unremarkable central pulmonary vasculature and mediastinal contours accounting for mild leftward rotation. Anterior cervical fusion hardware noted. Healed RIGHT eighth rib fracture laterally. IMPRESSION: No evidence for acute intrathoracic disease.
[2016-10-08 10:29] LABS: Albumin 4.1 g/dL (3.2-5.2); BUN/Creatinine Ratio 5.3 (8-20); Calcium 9.1 mg/dL (8.6-10.3); EGFR African American 135.3 (>60); EGFR Non-African American 105.2 (>60); Globulin 3.2 g/dL (2-4); Total Bilirubin 0.9 mg/dL (0.2-1.0); Total Protein 7.3 g/dL (6.4-8.9)
[2016-10-08 10:32] LABS: Troponin I 0.02 ng/mL (<0.04)
[2016-10-08 10:43] LABS: Urine Bilirubin Negative (Negative); Urine Glucose Negative (Negative); Urine Nitrite Negative (Negative)
--- NOTE | 2016-10-08 10:49 | RAD ---
HISTORY: Fall, memory loss COMPARISONS: Head CT dated February 17, 2016 TECHNIQUE: Multiple contiguous axial CT scans were obtained of the head without intravenous contrast. FINDINGS: HEMORRHAGE/INFARCT: There is no hemorrhage or acute infarct. MASSES/SHIFT: There is no mass or shift. EXTRA-AXIAL SPACES: There are no extra-axial fluid collections. SULCI AND VENTRICLES: There is diffuse and proportional enlargement of the sulci and ventricles. CEREBRUM: There is hypoattenuation of the periventricular and subcortical white matter. BRAINSTEM: There are no focal parenchymal abnormalities. CEREBELLUM: There are no focal parenchymal abnormalities. VESSELS: The vessels are grossly normal. PARANASAL SINUSES: The paranasal sinuses are clear. ORBITS: The orbits are unremarkable. BONES AND SOFT TISSUE: No bone or soft tissue abnormalities are noted. OTHER: None IMPRESSION: NO ACUTE INTRACRANIAL PATHOLOGY.
[2016-10-08 10:59] LABS: Benzodiazepine Urine Screen None Detected (None Detect)
[2016-10-08 11:03] LABS: TSH (Thyroid Stimulating Horm) 0.51 mcIU/mL (0.34-5.60)
[2016-10-08] MEDS ORDERED: Thiamine IV* 100 MG/ML 2 ML VIAL IM ONE (11:13)
[2016-10-08 11:15] LABS: Magnesium 1.7 mg/dL (1.9-2.7); Potassium 4.2 mmol/L (3.5-5.0)
[2016-10-08] MEDS ORDERED: LORazepam TAB(*) 1 MG PO SCH (12:00)
[2016-10-08] MEDS ORDERED: Magnesium Sulfate 2 GM IV* 2 GM/50 ML BAG IVPB ONE (14:15)
[2016-10-08] MEDS ORDERED: NS 0.9% 1000 ML* 1,000 ML IV SCH (14:30)
[2016-10-08] MEDS: Diazepam TAB(*) 10 MG PO PRN ×2 (19:37→21:40)
[2016-10-08] MEDS ORDERED: Carvedilol TAB* 25 MG PO SCH (21:00)
[2016-10-08] MEDS: Carvedilol TAB* 25 MG PO SCH (21:38)
[2016-10-08] MEDS: Heparin VIAL(*) 5000 UNITS/ML VIAL (FIVE THOUSAND) SUBCUT SCH (21:42)
--- NOTE | 2016-10-09 00:58 | HP ---
CC: Dexter Pino MD * HISTORY AND PHYSICAL: DATE OF ADMISSION: 10/08/16 PRIMARY CARE PROVIDER: Dexter Pino MD. ATTENDING PHYSICIAN: Alanna Mejias DO* (dictated by Deandra Richardson NP). CHIEF COMPLAINT: Request for alcohol detox. HISTORY OF PRESENT ILLNESS: Mr. Brown is a 61-year-old male with past medical history significant for atrial fibrillation, alcohol abuse, hypertension and cardiomyopathy who presented to the emergency room today with request for alcohol detox. The patient denies any recent fevers, chills, chest pain, palpitations, shortness of breath, nausea, vomiting, diarrhea or urinary symptoms. He does report dizziness and lightheadedness for the past few weeks in addition to blurry vision since having cataract surgery in the past, but no new visual changes. The patient presented to the emergency room for detox. While in the emergency room, patient had labs remarkable for thrombocytopenia with a platelet count of 95,000 consistent with previous labs. The patient was noted to have hypomagnesemia and negative urinalysis, the serum alcohol was 411. While in the emergency room, patient received p.o. Valium, IM thiamine and was started on a banana bag. Based of the patient's presentation and request for alcohol withdrawal, the hospitalists were asked to evaluate the patient for admission. PAST MEDICAL HISTORY: 1. Atrial fibrillation. 2. Alcohol abuse. 3. Spinal stenosis. 4. Cervical spine fracture. 5. SVT. 6. Cardiomyopathy. 7. Hypertension. 8. Skin cancer. PAST SURGICAL HISTORY: 1. Status post ORIF of his wrist. 2. Status post procedure for his cervical spine fracture, which sounds to be a halo placement. 3. Status post bilateral cataract extractions. 4. Status post excision of moles. HOME MEDICATIONS: Include: 1. Coreg 25 mg oral twice daily. 2. Losartan 50 mg oral daily. 3. Benadryl 50 mg oral 3 times daily as needed for sleep or allergies. 4. Folic acid 1 mg oral daily. 5. Thiamine 100 mg oral daily. 6. Multivitamin 1 tablet oral daily. ALLERGIES: TETRACYCLINE, LISINOPRIL, PENICILLIN, and LORAZEPAM. FAMILY HISTORY: The patient reports his parents had a history of hypertension. Mother with history of diabetes mellitus. He denies any family history of cancer. SOCIAL HISTORY: The patient smoked a pack a day for approximately 38 years. The patient denies recreational drug use. The patient daily drinks 5 to 10 beers. The patient is retired and lives with his significant other, Starr Cain, who will be his surrogate decision maker in the event he is unable to decisions for himself. REVIEW OF SYSTEMS: I performed a 14-point review of systems, all the pertinent positives and negatives are mentioned in history of present illness. The remaining review of systems is negative. PHYSICAL EXAMINATION GENERAL APPEARANCE: The patient is alert, pleasant, appears to be in no acute distress. VITAL SIGNS: Temperature 97.3, heart rate 90, respiratory rate 18, O2 sat 100% on room air, blood pressure 127/90. HEENT: Normocephalic, atraumatic. Pupils are equal and reactive to light. Extraocular movements are intact. RESPIRATORY: There is no accessory muscle use and the lungs are clear to auscultation bilateral. CARDIOVASCULAR: Regular rate and rhythm. S1, S2 present. There is no murmurs , rubs, or gallops heard. ABDOMEN: Soft, nontender, nondistended. There are bowel sounds present x4. EXTREMITIES: There is no lower extremity edema. DP, PT, femoral pulses are 2+ and symmetric. MUSCULOSKELETAL: There is no clubbing or cyanosis noted. The patient exhibits good strength in all extremities. NEUROLOGIC: The patient is alert and oriented x4. Cranial nerves II to XII are grossly intact. PSYCHOLOGICAL: The patient is calm and cooperative but is restless. SKIN: There are no rashes or abnormalities seen. DIAGNOSTIC STUDIES/LABORATORY DATA: Sodium 136, potassium 4.2, chloride 100, CO2 of 24, BUN 4, creatinine 0.75, glucose 89, magnesium 1.7. Alcohol 411, AST 408 and ALT 255. White blood cell count 7.3, hemoglobin 15.4, hematocrit 45 and platelet count 95,000. Urinalysis is negative. EKG shows an atrial fibrillation with a rate of 87. This EKG is similar to previous EKG from 08/02/16. Chest x-ray from today. Radiologist's impression: No intrathoracic disease. Head CT from today. Radiologist's impression: No intracranial pathology. IMPRESSION: Mr. Brown is a 61-year-old male with past medical history significant for atrial fibrillation, alcohol abuse, cardiomyopathy and hypertension who presents to emergency room requesting alcohol detox. The patient will be admitted as an observation for alcohol detox. ASSESSMENT/PLAN: 1. Alcohol withdrawal. The patient will be placed on a WAM protocol with Valium. He will be placed on seizure precautions. He will receive a banana bag and then IV hydration. He will be continued on folic acid, thiamine and multivitamin. 2. Hypertension. The patient is currently normotensive. We will continue his carvedilol with hold parameters in addition to his losartan. 3. Atrial fibrillation. The patient will be continued on his home carvedilol. The patient is currently not anticoagulated. He has a CHADS-VASc2 score of 1 point, placing the patient at a stroke risk of 0.6% per year in greater 90,000 patients. The risk of this patient being anticoagulated with his alcoholism and his risk of falls is believed to be higher than his risk of stroke, so we will hold on anticoagulation. 4. Fluids, electrolytes and nutrition. The patient will be on a heart healthy diet. 5. Code status. Full code. 6. DVT prophylaxis. The patient is at moderate risk and will have subcu heparin. 7. Disposition: Observation. TIME SPENT: Time spent for this admission was 60 minutes and greater than half of that was spent [id number] with the patient discussing medications, past medical history and the events leading up to his arrival today and performing a physical examination. The case has been reviewed with the attending, Dr. Mejias, who agrees with the plan of care. Reviewed by GINA GUNN 10/09/16 1827 [id number]/[facility] #: [id number] CARLY
[2016-10-09] MEDS: Diazepam TAB(*) 10 MG PO PRN ×7 (01:55→20:32)
[2016-10-09 05:58] LABS: BUN/Creatinine Ratio 7.4 (8-20); Calcium 8.4 mg/dL (8.6-10.3); EGFR African American 151.5 (>60); EGFR Non-African American 117.8 (>60); Magnesium 1.8 mg/dL (1.9-2.7); Potassium 3.8 mmol/L (3.5-5.0)
[2016-10-09] MEDS: Heparin VIAL(*) 5000 UNITS/ML VIAL (FIVE THOUSAND) SUBCUT SCH ×3 (06:11→20:33)
[2016-10-09] MEDS: Famotidine TAB* 20 MG PO SCH (08:40)
[2016-10-09] MEDS: Thiamine TAB* 100 MG TAB PO SCH (08:40)
[2016-10-09] MEDS: Carvedilol TAB* 25 MG PO SCH ×2 (08:40→20:32)
[2016-10-09] MEDS: Folic Acid TAB* 1 MG PO SCH (08:40)
[2016-10-09] MEDS: Multivitamins/Minerals TAB PO SCH (08:40)
[2016-10-09] MEDS: Losartan TAB* 25 MG PO SCH (08:40)
--- NOTE | 2016-10-09 15:12 | PN ---
Subjective Date of Service: 10/09/16 Interval History: Patient seen and examined at bedside. Pt states that he feel anxious and is having tremors. Denies fever, chills, shortness of breath, chest discomfort, N/V /D. Family History: Unchanged from Admission Social History: Unchanged from Admission Past Medical History: Unchanged from Admission Objective Active Medications: Acetaminophen (Tylenol Tab*) 650 mg PO Q4H PRN Reason: PAIN Carvedilol (Coreg Tab*) 25 mg PO BID SEB Diazepam (Valium Tab(*)) 0 mg PO .PER WAM SCORE PRN Reason: WITHDRAWAL - ALCOHOL Famotidine (Pepcid Tab*) 20 mg PO DAILY SEB Folic Acid (Folvite Tab*) 1 mg PO DAILY SEB Heparin Sodium (Porcine) (Heparin Vial(*)) 5,000 units SUBCUT Q8HR SEB Losartan Potassium (Cozaar Tab*) 50 mg PO DAILY SEB Melatonin (Melatonin (Nf)) 3 mg PO BEDTIME PRN Reason: SLEEP Multivitamins/Minerals (Theragran/Minerals Tab*) 1 tab PO DAILY SEB Ondansetron HCl (Zofran Inj*) 4 mg IV Q6H PRN Reason: NAUSEA Thiamine HCl (Vitamin B-1 Tab*) 100 mg PO DAILY SEB Tramadol HCl (Ultram*) 50 mg PO Q6H PRN Reason: PAIN Vital Signs 10/08/16 10/08/16 10/08/16 16:05 18:09 19:37 Temperature 98.5 F 98.5 F Pulse Rate 105 98 Respiratory 20 20 20 Rate Blood Pressure 120/74 101/67 (mmHg) O2 Sat by Pulse 94 96 Oximetry 10/08/16 10/08/16 10/08/16 19:38 21:30 21:37 Temperature 98.4 F 98.4 F Pulse Rate 77 97 Respiratory 20 21 20 Rate Blood Pressure 114/74 124/73 (mmHg) O2 Sat by Pulse 95 96 Oximetry 10/08/16 10/08/16 10/08/16 21:40 23:35 23:40 Temperature 98.0 F Pulse Rate 91 Respiratory 22 22 18 Rate Blood Pressure 104/66 (mmHg) O2 Sat by Pulse 99 Oximetry 10/09/16 10/09/16 10/09/16 01:55 03:49 03:54 Temperature 99.1 F Pulse Rate 95 93 Respiratory 18 22 22 Rate Blood Pressure 128/90 134/100 (mmHg) O2 Sat by Pulse 96 96 Oximetry 10/09/16 10/09/16 10/09/16 03:55 05:50 05:53 Temperature 99.8 F Pulse Rate 85 Respiratory 20 21 18 Rate Blood Pressure 140/85 (mmHg) O2 Sat by Pulse 97 Oximetry 10/09/16 10/09/16 10/09/16 07:50 08:00 08:35 Temperature 99.1 F Pulse Rate 90 Respiratory 16 16 17 Rate Blood Pressure 157/109 (mmHg) O2 Sat by Pulse 97 Oximetry 10/09/16 10/09/16 10/09/16 08:39 10:25 10:34 Temperature 98.5 F Pulse Rate 91 Respiratory 16 17 15 Rate Blood Pressure 115/80 (mmHg) O2 Sat by Pulse 97 Oximetry 10/09/16 10/09/16 10/09/16 10:39 12:10 12:34 Temperature Pulse Rate 77 Respiratory 18 17 16 Rate Blood Pressure 111/86 (mmHg) O2 Sat by Pulse 98 Oximetry Oxygen Devices in Use Now: None Appearance: NAD, laying in bed Eyes: PERRLA Ears/Nose/Mouth/Throat: Mucous Membranes Moist Respiratory: Symmetrical Chest Expansion and Respiratory Effort, Clear to Auscultation Cardiovascular: NL Sounds; No Murmurs; No JVD, RRR Abdominal: NL Sounds; No Tenderness; No Distention Extremities: No Edema Skin: No Rash or Ulcers Neurological: Alert and Oriented x 3, NL Muscle Strength and Tone Lines/Tubes/Other Access: Clean, Dry and Intact Peripheral IV - site benign Nutrition: Taking PO's Result Diagrams: 10/08/16 10:00 10/09/16 05:30 Assess/Plan/Problems-Billing Assessment: Mr. Brown is a 61 yo male PMH a fib, alcohol abuse, cardiomyopathy and HTN who presented to the emergency room requesting alcohol detox. - Patient Problems (1) Alcohol withdrawal Code(s): F10.239 - ALCOHOL DEPENDENCE WITH WITHDRAWAL, UNSPECIFIED SNOMED Code (s): 265093401 Comment: - WA score 5-9 - consult to assist patient with outpatient resources. He's not interested in inpatient rehab. - Continue [facility] protocol with Valium. (2) Electrolyte abnormality Code(s): E87.8 - OTH DISORDERS OF ELECTROLYTE AND FLUID BALANCE, NEC SNOMED Code(s): 727413666 Comment: - Hypomagnesia. Will give replacement and recheck labs in the AM (3) Atrial fibrillation Code(s): I48.91 - UNSPECIFIED ATRIAL FIBRILLATION SNOMED Code(s): 77719140 Comment: - Rate controlled - Pt is not anticoagulated at home - Continue carvedilol (4) Alcoholic hepatitis Code(s): K70.10 - ALCOHOLIC HEPATITIS WITHOUT ASCITES SNOMED Code(s): 136481955 Comment: - The patient has evidence of alcoholic hepatitis. - Will continue to intermittently follow LFTs. (5) Thrombocytopenia Code(s): D69.6 - THROMBOCYTOPENIA, UNSPECIFIED SNOMED Code(s): 605649546 Comment: - Appears to be near baseline - Suspect related to alcohol use (6) DVT prophylaxis Code(s): HJV0784 - SNOMED Code(s): 296677821 Comment: - SQ heparin. (7) Full code status Code(s): Z78.9 - OTHER SPECIFIED HEALTH STATUS SNOMED Code(s): 329212968 Status and Disposition: OBV to Inpatient. Discharge to home when medically stable.
[2016-10-09] MEDS ORDERED: Magnesium Sulfate 2 GM IV* 2 GM/50 ML BAG IVPB ONE (15:30)
[2016-10-09] MEDS: traMADol TAB* 50 MG PO PRN (20:04)
[2016-10-10] MEDS: Diazepam TAB(*) 10 MG PO PRN ×11 (00:12→23:59)
[2016-10-10] MEDS: Heparin VIAL(*) 5000 UNITS/ML VIAL (FIVE THOUSAND) SUBCUT SCH ×3 (04:46→21:11)
[2016-10-10 05:18] LABS: BUN/Creatinine Ratio 12.5 (8-20); Blood Urea Nitrogen 10 mg/dL (6-24); CO2 Carbon Dioxide 24 mmol/L (22-32); Calcium 8.6 mg/dL (8.6-10.3); Chloride 101 mmol/L (101-111); EGFR African American 125.6 (>60); EGFR Non-African American 97.6 (>60); Glucose 92 mg/dL (70-100); Sodium 133 mmol/L (133-145)
[2016-10-10 05:24] LABS: Anion Gap 8 mmol/L (2-11)
[2016-10-10 06:33] LABS: Magnesium 1.8 mg/dL (1.9-2.7)
[2016-10-10] MEDS ORDERED: Mouth Piece, Nicotine* 1 EACH CARTRIDGE ONE (08:01)
[2016-10-10] MEDS ORDERED: Nicotine Inhaler* 10 MG AMP ONE (08:02)
[2016-10-10] MEDS: Folic Acid TAB* 1 MG PO SCH (08:31)
[2016-10-10] MEDS: Thiamine TAB* 100 MG TAB PO SCH (08:31)
[2016-10-10] MEDS: Famotidine TAB* 20 MG PO SCH (08:31)
[2016-10-10] MEDS: Multivitamins/Minerals TAB PO SCH (08:31)
[2016-10-10] MEDS: Losartan TAB* 25 MG PO SCH (08:31)
[2016-10-10] MEDS: Carvedilol TAB* 25 MG PO SCH ×2 (08:31→21:11)
[2016-10-10] MEDS ORDERED: Mouth Piece, Nicotine* 1 EACH CARTRIDGE INH ONE (09:00)
--- NOTE | 2016-10-10 18:08 | PN ---
Subjective Date of Service: 10/10/16 Interval History: Mr. Brown is feeling well at the time of my examination. He denies any complaint including chest pain, SOB, nausea, or abdominal pain. He is optimistic about stopping drinking. Family History: Unchanged from Admission Social History: Unchanged from Admission Past Medical History: Unchanged from Admission Objective Active Medications: Acetaminophen (Tylenol Tab*) 650 mg PO Q4H PRN Carvedilol (Coreg Tab*) 25 mg PO BID SEB Diazepam (Valium Tab(*)) 0 mg PO .PER WAM SCORE PRN; Protocol Famotidine (Pepcid Tab*) 20 mg PO DAILY SEB Folic Acid (Folvite Tab*) 1 mg PO DAILY SEB Heparin Sodium (Porcine) (Heparin Vial(*)) 5,000 units SUBCUT Q8HR SEB Losartan Potassium (Cozaar Tab*) 50 mg PO DAILY SEB Melatonin (Melatonin (Nf)) 3 mg PO BEDTIME PRN Multivitamins/Minerals (Theragran/Minerals Tab*) 1 tab PO DAILY SEB Nicotine (Nicotine Inhaler*) 10 mg INH Q2H PRN Ondansetron HCl (Zofran Inj*) 4 mg IV Q6H PRN Thiamine HCl (Vitamin B-1 Tab*) 100 mg PO DAILY SEB Tramadol HCl (Ultram*) 50 mg PO Q6H PRN Vital Signs 10/09/16 10/09/16 10/09/16 18:03 18:23 20:00 Temperature 99.1 F Pulse Rate 79 Respiratory 18 16 17 Rate Blood Pressure 119/76 (mmHg) O2 Sat by Pulse 97 Oximetry 10/09/16 10/09/16 10/09/16 20:04 20:19 20:32 Temperature 97.6 F Pulse Rate 79 Respiratory 16 16 17 Rate Blood Pressure 117/82 (mmHg) O2 Sat by Pulse 99 Oximetry 10/09/16 10/09/16 10/09/16 22:04 22:11 22:32 Temperature 98.7 F Pulse Rate 78 Respiratory 16 16 16 Rate Blood Pressure 93/72 (mmHg) O2 Sat by Pulse 97 Oximetry 10/10/16 10/10/16 10/10/16 00:09 00:10 00:12 Temperature Pulse Rate 84 87 Respiratory 16 Rate Blood Pressure 118/91 (mmHg) O2 Sat by Pulse 100 100 Oximetry 10/10/16 10/10/16 10/10/16 02:05 02:12 03:50 Temperature Pulse Rate 104 Respiratory 16 16 Rate Blood Pressure 127/86 (mmHg) O2 Sat by Pulse 93 Oximetry 10/10/16 10/10/16 10/10/16 03:52 05:51 06:23 Temperature Pulse Rate 93 90 95 Respiratory 18 Rate Blood Pressure 110/63 145/89 (mmHg) O2 Sat by Pulse 94 77 97 Oximetry 10/10/16 10/10/16 10/10/16 06:27 08:00 08:13 Temperature Pulse Rate 105 Respiratory 18 18 18 Rate Blood Pressure 130/107 (mmHg) O2 Sat by Pulse 99 Oximetry 10/10/16 10/10/16 10/10/16 08:27 08:30 10:20 Temperature 98.9 F Pulse Rate 94 Respiratory 18 18 18 Rate Blood Pressure 119/87 (mmHg) O2 Sat by Pulse 96 Oximetry 10/10/16 10/10/16 10/10/16 10:26 10:30 12:26 Temperature Pulse Rate Respiratory 16 19 18 Rate Blood Pressure (mmHg) O2 Sat by Pulse Oximetry 10/10/16 10/10/16 10/10/16 12:29 12:31 14:20 Temperature 98.9 F 98.5 F Pulse Rate 115 87 Respiratory 17 18 18 Rate Blood Pressure 115/94 109/82 (mmHg) O2 Sat by Pulse 97 97 Oximetry 10/10/16 10/10/16 10/10/16 14:31 16:06 16:38 Temperature 98.0 F Pulse Rate 90 Respiratory 18 16 16 Rate Blood Pressure 110/89 (mmHg) O2 Sat by Pulse 98 Oximetry Oxygen Devices in Use Now: None Appearance: Male sitting up on bed in NAD Eyes: No Scleral Icterus Ears/Nose/Mouth/Throat: Mucous Membranes Moist Neck: Trachea Midline Respiratory: Symmetrical Chest Expansion and Respiratory Effort, Clear to Auscultation Cardiovascular: NL Sounds; No Murmurs; No JVD, No Edema Abdominal: NL Sounds; No Tenderness; No Distention Extremities: No Edema Skin: No Rash or Ulcers Neurological: Alert and Oriented x 3, NL Muscle Strength and Tone Nutrition: Taking PO's Result Diagrams: 10/08/16 10:00 10/10/16 06:07 Assess/Plan/Problems-Billing Assessment: Mr. Brown is a 61 yo male PMH a fib, alcohol abuse, cardiomyopathy and HTN who presented to the emergency room requesting alcohol detox. - Patient Problems (1) Alcohol withdrawal Comment: - Continues to require valium for withdrawal symptoms. - SW consult to assist patient with outpatient resources. He's not interested in inpatient rehab. (2) Alcoholic hepatitis Comment: - Asymptomatic bump in LFTs, suspect alcoholic hepatitis. - Recheck labs in AM. (3) Electrolyte abnormality Comment: - Hypomagnesia. Will give replacement and recheck labs in the AM (4) Hypertension Comment: - BP well controlled. - Continue carvedilol and losartan. (5) Atrial fibrillation Comment: - Rate controlled. - Pt is not anticoagulated at home. - Continue carvedilol. (6) Thrombocytopenia Comment: - Appears to be near baseline. - Suspect related to alcohol use. (7) Full code status (8) DVT prophylaxis Comment: - SQ heparin. Status and Disposition: OBV to Inpatient. Discharge to home when medically stable.
[2016-10-10] MEDS ORDERED: Potassium Chlor TAB* 20 MEQ TAB.ER PO ONE (18:11)
[2016-10-10] MEDS: Ondansetron INJ* 2 MG/ML VIAL IV PRN (20:55)
[2016-10-10] MEDS: Nicotine Inhaler* 10 MG AMP INH PRN (21:10)
[2016-10-11] MEDS: Diazepam TAB(*) 10 MG PO PRN ×7 (02:09→22:48)
[2016-10-11] MEDS: traMADol TAB* 50 MG PO PRN (05:35)
[2016-10-11 05:43] LABS: Albumin 3.7 g/dL (3.2-5.2); BUN/Creatinine Ratio 13.5 (8-20); Calcium 9.2 mg/dL (8.6-10.3); EGFR African American 137.4 (>60); EGFR Non-African American 106.8 (>60); Globulin 2.6 g/dL (2-4); Potassium 3.2 mmol/L (3.5-5.0); Total Protein 6.3 g/dL (6.4-8.9)
[2016-10-11] MEDS: Heparin VIAL(*) 5000 UNITS/ML VIAL (FIVE THOUSAND) SUBCUT SCH ×3 (05:43→21:26)
--- NOTE | 2016-10-11 07:33 | PN ---
Subjective Date of Service: 10/11/16 Interval History: Mr. Brown denies complaint today. He specifically denies chest pain, SOB, nausea, or abdominal pain. Family History: Unchanged from Admission Social History: Unchanged from Admission Past Medical History: Unchanged from Admission Objective Active Medications: Acetaminophen (Tylenol Tab*) 650 mg PO Q4H PRN Carvedilol (Coreg Tab*) 25 mg PO BID [facility] Diazepam (Valium Tab(*)) 0 mg PO .PER WAM SCORE PRN; Protocol Famotidine (Pepcid Tab*) 20 mg PO DAILY [facility] Folic Acid (Folvite Tab*) 1 mg PO DAILY [facility] Heparin Sodium (Porcine) (Heparin Vial(*)) 5,000 units SUBCUT Q8HR [facility] Losartan Potassium (Cozaar Tab*) 50 mg PO DAILY [facility] Magnesium Oxide (Magox 400 Tab*) 400 mg PO DAILY [facility] Melatonin (Melatonin (Nf)) 3 mg PO BEDTIME PRN Multivitamins/Minerals (Theragran/Minerals Tab*) 1 tab PO DAILY [facility] Nicotine (Nicotine Inhaler*) 10 mg INH Q2H PRN Ondansetron HCl (Zofran Inj*) 4 mg IV Q6H PRN Thiamine HCl (Vitamin B-1 Tab*) 100 mg PO DAILY [facility] Tramadol HCl (Ultram*) 50 mg PO Q6H PRN Vital Signs 10/10/16 10/10/16 10/10/16 08:00 08:13 08:27 Temperature Pulse Rate 105 Respiratory 18 18 18 Rate Blood Pressure 130/107 (mmHg) O2 Sat by Pulse 99 Oximetry 10/10/16 10/10/16 10/10/16 08:30 10:20 10:26 Temperature 98.9 F Pulse Rate 94 Respiratory 18 18 16 Rate Blood Pressure 119/87 (mmHg) O2 Sat by Pulse 96 Oximetry 10/10/16 10/10/16 10/10/16 10:30 12:26 12:29 Temperature 98.9 F Pulse Rate 115 Respiratory 19 18 17 Rate Blood Pressure 115/94 (mmHg) O2 Sat by Pulse 97 Oximetry 10/10/16 10/10/16 10/10/16 12:31 14:20 14:31 Temperature 98.5 F Pulse Rate 87 Respiratory 18 18 18 Rate Blood Pressure 109/82 (mmHg) O2 Sat by Pulse 97 Oximetry 10/10/16 10/10/16 10/10/16 16:06 16:38 18:27 Temperature 98.0 F 97.7 F Pulse Rate 90 95 Respiratory 16 16 24 Rate Blood Pressure 110/89 153/99 (mmHg) O2 Sat by Pulse 98 99 Oximetry 10/10/16 10/10/16 10/10/16 18:28 18:38 20:00 Temperature Pulse Rate Respiratory 16 17 18 Rate Blood Pressure (mmHg) O2 Sat by Pulse Oximetry 10/10/16 10/10/16 10/10/16 20:14 20:28 21:10 Temperature 98.0 F Pulse Rate 91 Respiratory 28 28 28 Rate Blood Pressure 107/72 (mmHg) O2 Sat by Pulse 97 Oximetry 10/10/16 10/10/16 10/10/16 22:13 22:30 23:10 Temperature 98.2 F Pulse Rate 90 Respiratory 20 20 18 Rate Blood Pressure 124/89 (mmHg) O2 Sat by Pulse 97 Oximetry 10/10/16 10/10/16 10/10/16 23:53 23:56 23:59 Temperature 97.3 F Pulse Rate 39 Respiratory 28 22 28 Rate Blood Pressure 139/98 (mmHg) O2 Sat by Pulse 98 Oximetry 10/11/16 10/11/16 10/11/16 00:30 01:59 02:00 Temperature Pulse Rate Respiratory 20 22 18 Rate Blood Pressure (mmHg) O2 Sat by Pulse Oximetry 10/11/16 10/11/16 10/11/16 02:02 02:09 04:00 Temperature Pulse Rate 70 Respiratory 18 24 20 Rate Blood Pressure 145/113 (mmHg) O2 Sat by Pulse 96 Oximetry 10/11/16 10/11/16 10/11/16 04:06 04:09 04:12 Temperature 98.1 F Pulse Rate 81 Respiratory 20 22 20 Rate Blood Pressure 140/95 (mmHg) O2 Sat by Pulse 100 Oximetry 10/11/16 10/11/16 10/11/16 05:35 05:42 05:45 Temperature Pulse Rate 62 Respiratory 18 22 22 Rate Blood Pressure 144/103 (mmHg) O2 Sat by Pulse 99 Oximetry 10/11/16 06:12 Temperature Pulse Rate Respiratory 20 Rate Blood Pressure (mmHg) O2 Sat by Pulse Oximetry Oxygen Devices in Use Now: None Appearance: Unkempt male sitting up in chair eating breakfast in NAD Eyes: No Scleral Icterus Ears/Nose/Mouth/Throat: Mucous Membranes Moist Neck: Trachea Midline Respiratory: Symmetrical Chest Expansion and Respiratory Effort, Clear to Auscultation Cardiovascular: NL Sounds; No Murmurs; No JVD, No Edema Abdominal: NL Sounds; No Tenderness; No Distention Lymphatic: No Cervical Adenopathy Extremities: No Edema Skin: No Rash or Ulcers Neurological: Alert and Oriented x 3, NL Muscle Strength and Tone Nutrition: Taking PO's Result Diagrams: 10/08/16 10:00 10/11/16 05:21 Assess/Plan/Problems-Billing Assessment: Mr. Brown is a 61 yo male PMH a fib, alcohol abuse, cardiomyopathy and HTN who presented to the emergency room requesting alcohol detox. - Patient Problems (1) Alcohol withdrawal Comment: - Continues to require valium for withdrawal symptoms. - Appreciate SW consult, not interested in inpatient rehab. (2) Alcoholic hepatitis Comment: - Now trending down. Asymptomatic elevation in LFTs, suspect alcoholic hepatitis. (3) Electrolyte abnormality Comment: - Continue potassium supplementation. (4) Hypertension Comment: - BP well controlled. - Continue carvedilol and losartan. (5) Atrial fibrillation Comment: - Rate controlled. - Pt is not anticoagulated at home. - Continue carvedilol. (6) Thrombocytopenia Comment: - Appears to be near baseline. - Suspect related to alcohol use. (7) Full code status (8) DVT prophylaxis Comment: - SQ heparin. Status and Disposition: Inpatient. Discharge to home when medically stable.
[2016-10-11] MEDS: Nicotine Inhaler* 10 MG AMP INH PRN (08:46)
[2016-10-11] MEDS: Carvedilol TAB* 25 MG PO SCH (08:47)
[2016-10-11] MEDS: Losartan TAB* 25 MG PO SCH (08:47)
[2016-10-11] MEDS: Famotidine TAB* 20 MG PO SCH (08:47)
[2016-10-11] MEDS: Multivitamins/Minerals TAB PO SCH (08:48)
[2016-10-11] MEDS: Folic Acid TAB* 1 MG PO SCH (08:48)
[2016-10-11] MEDS: Thiamine TAB* 100 MG TAB PO SCH (08:48)
[2016-10-11] MEDS: Magnesium Oxide TAB* 400 MG PO SCH (08:48)
--- NOTE | 2016-10-11 11:23 | PN ---
Progress Note - Progress Note Date of Service: 10/11/16 Note: Called to bedside by patient's primary RN for hypotension. Patient's initial SBP this morning was in the 140s. On repeat check after morning meds ( including coreg, losartan and valium), patient's SBP dropped into the 70s. Patient stated he was a bit lightheaded and tired but he remained oriented. On review, patient has had intermittent drops in BP to the 90s but not this low. Plan for 1L fluid bolus and to decrease losartan.
[2016-10-11] MEDS ORDERED: Losartan TAB* 25 MG PO SCH (12:00)
[2016-10-11] MEDS: Carvedilol TAB* 6.25 MG PO SCH (20:54)
[2016-10-11] MEDS: Potassium Chlor TAB* 20 MEQ TAB.ER PO SCH (20:54)
[2016-10-12] MEDS: Diazepam TAB(*) 10 MG PO PRN ×5 (00:47→23:02)
[2016-10-12] MEDS: Heparin VIAL(*) 5000 UNITS/ML VIAL (FIVE THOUSAND) SUBCUT SCH ×4 (05:17→22:58)
[2016-10-12 06:26] LABS: BUN/Creatinine Ratio 14.7 (8-20); EGFR African American 151.5 (>60); EGFR Non-African American 117.8 (>60); Potassium 3.6 mmol/L (3.5-5.0)
[2016-10-12] MEDS: Magnesium Oxide TAB* 400 MG PO SCH (08:34)
[2016-10-12] MEDS: Potassium Chlor TAB* 20 MEQ TAB.ER PO SCH ×2 (08:34→21:23)
[2016-10-12] MEDS: Thiamine TAB* 100 MG TAB PO SCH (08:34)
[2016-10-12] MEDS: Carvedilol TAB* 6.25 MG PO SCH ×2 (08:34→21:22)
[2016-10-12] MEDS: Folic Acid TAB* 1 MG PO SCH (08:34)
[2016-10-12] MEDS: Multivitamins/Minerals TAB PO SCH (08:34)
[2016-10-12] MEDS: Famotidine TAB* 20 MG PO SCH (08:34)
--- NOTE | 2016-10-12 10:00 | PN ---
Subjective Date of Service: 10/12/16 Interval History: This is a 61 yo gentleman with alcoholism, cardiomyopathy with last EF 40-45%, afib, and HTN who was admitted with ETOH w/d. He is still requiring multiple doses of Valium. He reports he is still tremulous, slightly anxious and nauseous. No vomiting, abd pain. No seizure activity. Objective Active Medications: Acetaminophen (Tylenol Tab*) 650 mg PO Q4H PRN PRN Reason: PAIN Carvedilol (Coreg Tab*) 12.5 mg PO 0900,2100 [facility] Last Admin: 10/12/16 08:34 Dose: 12.5 mg Diazepam (Valium Tab(*)) 0 mg PO .PER WAM SCORE PRN; Protocol PRN Reason: WITHDRAWAL - ALCOHOL Last Admin: 10/12/16 04:41 Dose: 5 mg Famotidine (Pepcid Tab*) 20 mg PO DAILY [facility] Last Admin: 10/12/16 08:34 Dose: 20 mg Folic Acid (Folvite Tab*) 1 mg PO DAILY [facility] Last Admin: 10/12/16 08:34 Dose: 1 mg Heparin Sodium (Porcine) (Heparin Vial(*)) 5,000 units SUBCUT Q8HR [facility] Last Admin: 10/12/16 05:17 Dose: 5,000 units Magnesium Oxide (Magox 400 Tab*) 400 mg PO DAILY [facility] Last Admin: 10/12/16 08:34 Dose: 400 mg Melatonin (Melatonin (Nf)) 3 mg PO BEDTIME PRN PRN Reason: SLEEP Multivitamins/Minerals (Theragran/Minerals Tab*) 1 tab PO DAILY [facility] Last Admin: 10/12/16 08:34 Dose: 1 tab Nicotine (Nicotine Inhaler*) 10 mg INH Q2H PRN PRN Reason: CRAVINGS Last Admin: 10/11/16 08:46 Dose: 10 mg Ondansetron HCl (Zofran Inj*) 4 mg IV Q6H PRN PRN Reason: NAUSEA Last Admin: 10/10/16 20:55 Dose: 4 mg Potassium Chloride (Klor Con Er Tab*) 20 meq PO BID [facility] Last Admin: 10/12/16 08:34 Dose: 20 meq Thiamine HCl (Vitamin B-1 Tab*) 100 mg PO DAILY [facility] Last Admin: 10/12/16 08:34 Dose: 100 mg Tramadol HCl (Ultram*) 50 mg PO Q6H PRN PRN Reason: PAIN Last Admin: 10/11/16 05:35 Dose: 50 mg Vital Signs: Temp Pulse Resp BP Pulse Ox 98.0 F 82 16 130/96 98 10/12/16 08:05 10/12/16 08:05 10/12/16 09:15 10/12/16 08:05 10/12/16 08:05 Oxygen Devices in Use Now: None Appearance: Ill appearing 61 yo gentleman attempting to feed himself breakfast in NAD Respiratory: Symmetrical Chest Expansion and Respiratory Effort, Clear to Auscultation Cardiovascular: NL Sounds; No Murmurs; No JVD, RRR Abdominal: NL Sounds; No Tenderness; No Distention Extremities: No Edema Skin: No Rash or Ulcers Neurological: - - tremulous, slightly fatigued Result Diagrams: 10/08/16 10:00 10/12/16 05:34 Assess/Plan/Problems-Billing Assessment: Mr. Brown is a 61 yo male PMH a fib, alcohol abuse, cardiomyopathy and HTN who presented to the emergency room requesting alcohol detox. - Patient Problems (1) Alcohol withdrawal Comment: Still actively withdrawing, requiring multiple doses of Valium Patient is not interested in rehab, he would like to return home after completing withdrawal Appreciate SW consultation (2) Cardiomyopathy Comment: Last EF 40-45% No acute exacerbation (3) Atrial fibrillation Comment: Rate controlled. Pt is not anticoagulated at home. Continue carvedilol. (4) Hypertension Comment: Slightly hypotensive over the last 48 hrs Losartan held at this time Carvedilol continued (5) DVT prophylaxis Comment: SQ heparin. Status and Disposition: Inpatient. Will likely require additional 2-3 LOS
[2016-10-12] MEDS: traMADol TAB* 50 MG PO PRN (21:32)
[2016-10-13] MEDS: Diazepam TAB(*) 10 MG PO PRN ×5 (01:02→19:09)
[2016-10-13] MEDS: traMADol TAB* 50 MG PO PRN ×2 (04:54→19:08)
[2016-10-13] MEDS: Heparin VIAL(*) 5000 UNITS/ML VIAL (FIVE THOUSAND) SUBCUT SCH ×3 (05:23→22:50)
--- NOTE | 2016-10-13 08:10 | PN ---
Subjective Date of Service: 10/13/16 Interval History: No new complaints. He still required 3 doses of Valium overnight. He has started to demonstrate some insight in to his current situation. He denies cough, CP, SOB or abd pain. Some mild nausea and anxiety. Objective Active Medications: Acetaminophen (Tylenol Tab*) 650 mg PO Q4H PRN PRN Reason: PAIN Carvedilol (Coreg Tab*) 12.5 mg PO 0900,2100 [facility] Last Admin: 10/12/16 21:22 Dose: 12.5 mg Diazepam (Valium Tab(*)) 0 mg PO .PER WAM SCORE PRN; Protocol PRN Reason: WITHDRAWAL - ALCOHOL Last Admin: 10/13/16 06:25 Dose: 10 mg Famotidine (Pepcid Tab*) 20 mg PO DAILY [facility] Last Admin: 10/12/16 08:34 Dose: 20 mg Folic Acid (Folvite Tab*) 1 mg PO DAILY [facility] Last Admin: 10/12/16 08:34 Dose: 1 mg Heparin Sodium (Porcine) (Heparin Vial(*)) 5,000 units SUBCUT Q8HR [facility] Last Admin: 10/13/16 05:23 Dose: Not Given Magnesium Oxide (Magox 400 Tab*) 400 mg PO DAILY [facility] Last Admin: 10/12/16 08:34 Dose: 400 mg Melatonin (Melatonin (Nf)) 3 mg PO BEDTIME PRN PRN Reason: SLEEP Multivitamins/Minerals (Theragran/Minerals Tab*) 1 tab PO DAILY [facility] Last Admin: 10/12/16 08:34 Dose: 1 tab Nicotine (Nicotine Inhaler*) 10 mg INH Q2H PRN PRN Reason: CRAVINGS Last Admin: 10/11/16 08:46 Dose: 10 mg Ondansetron HCl (Zofran Inj*) 4 mg IV Q6H PRN PRN Reason: NAUSEA Last Admin: 10/10/16 20:55 Dose: 4 mg Potassium Chloride (Klor Con Er Tab*) 20 meq PO BID [facility] Last Admin: 10/12/16 21:23 Dose: 20 meq Thiamine HCl (Vitamin B-1 Tab*) 100 mg PO DAILY [facility] Last Admin: 10/12/16 08:34 Dose: 100 mg Tramadol HCl (Ultram*) 50 mg PO Q6H PRN PRN Reason: PAIN Last Admin: 10/13/16 04:54 Dose: 50 mg Vital Signs: Temp Pulse Resp BP Pulse Ox 98.4 F 96 20 155/113 97 10/13/16 06:31 10/13/16 06:31 10/13/16 06:31 10/13/16 06:31 10/13/16 06:31 Oxygen Devices in Use Now: None Appearance: Slightly disheveled but well appearing gentleman in NAD Respiratory: Symmetrical Chest Expansion and Respiratory Effort, Clear to Auscultation Cardiovascular: NL Sounds; No Murmurs; No JVD, RRR Abdominal: NL Sounds; No Tenderness; No Distention Extremities: No Edema Neurological: Alert and Oriented x 3, - - mildly tremulous Result Diagrams: 10/08/16 10:00 10/12/16 05:34 Assess/Plan/Problems-Billing Assessment: Mr. Brown is a 61 yo male PMH a fib, alcohol abuse, cardiomyopathy and HTN who presented to the emergency room requesting alcohol detox. - Patient Problems (1) Alcohol withdrawal Comment: Still actively withdrawing, requiring multiple doses of Valium Patient is not interested in rehab, he would like to return home after completing withdrawal Appreciate SW consultation (2) Cardiomyopathy Comment: Last EF 40-45% No acute exacerbation (3) Atrial fibrillation Comment: Rate controlled. Pt is not anticoagulated at home. Continue carvedilol. (4) Hypertension Comment: Now normotensive and slightly hypertensive Will resume losartan Carvedilol continued (5) DVT prophylaxis Comment: SQ heparin. Status and Disposition: Inpatient. Will likely require additional 1-2d LOS
[2016-10-13] MEDS: Thiamine TAB* 100 MG TAB PO SCH (09:07)
[2016-10-13] MEDS: Famotidine TAB* 20 MG PO SCH (09:07)
[2016-10-13] MEDS: Magnesium Oxide TAB* 400 MG PO SCH (09:07)
[2016-10-13] MEDS: Potassium Chlor TAB* 20 MEQ TAB.ER PO SCH ×2 (09:07→22:51)
[2016-10-13] MEDS: Multivitamins/Minerals TAB PO SCH (09:07)
[2016-10-13] MEDS: Folic Acid TAB* 1 MG PO SCH (09:07)
[2016-10-13] MEDS: Losartan TAB* 25 MG PO SCH (09:07)
[2016-10-13] MEDS: Carvedilol TAB* 6.25 MG PO SCH ×2 (09:09→22:51)
[2016-10-13] MEDS: CMC:Melatonin (NF) 3 MG TAB PO PRN (22:50)
[2016-10-13] MEDS: Nicotine Inhaler* 10 MG AMP INH PRN (22:50)
[2016-10-13] MEDS: Ondansetron INJ* 2 MG/ML VIAL IV PRN (23:50)
[2016-10-14] MEDS: Diazepam TAB(*) 10 MG PO PRN ×3 (00:44→08:46)
[2016-10-14] MEDS ORDERED: Calcium Carbonate CHEW TAB* 500 MG (TUMS) PO PRN (02:48)
[2016-10-14] MEDS: cloNIDine TAB* 0.1 MG PO SCH ×3 (03:30→21:00)
[2016-10-14] MEDS: Heparin VIAL(*) 5000 UNITS/ML VIAL (FIVE THOUSAND) SUBCUT SCH ×3 (06:21→22:52)
[2016-10-14 07:54] LABS: Hematocrit 37 % (42-52); Hemoglobin 12.5 g/dl (14.0-18.0); Mean Corpuscular HGB Conc 34 g/dl (31-36); Mean Corpuscular Hemoglobin 35 pg (27-31); Mean Corpuscular Volume 103 fL (80-94); Mean Platelet Volume 9 um3 (7.4-10.4); Red Blood Count 3.56 10^6/ul (4.0-5.4); Red Cell Distribution Width 14 % (10.5-15); White Blood Count 5.5 10^3/ul (3.5-10.8)
[2016-10-14 08:08] LABS: Albumin 3.8 g/dL (3.2-5.2); BUN/Creatinine Ratio 9.6 (8-20); Calcium 9.6 mg/dL (8.6-10.3); EGFR African American 139.6 (>60); EGFR Non-African American 108.5 (>60); Globulin 2.8 g/dL (2-4); Potassium 3.7 mmol/L (3.5-5.0); Total Bilirubin 0.7 mg/dL (0.2-1.0); Total Protein 6.6 g/dL (6.4-8.9)
[2016-10-14] MEDS: Nicotine Inhaler* 10 MG AMP INH PRN (08:46)
[2016-10-14] MEDS: Thiamine TAB* 100 MG TAB PO SCH (08:46)
[2016-10-14] MEDS: Magnesium Oxide TAB* 400 MG PO SCH (08:47)
[2016-10-14] MEDS: Losartan TAB* 25 MG PO SCH (08:47)
[2016-10-14] MEDS: Carvedilol TAB* 6.25 MG PO SCH ×2 (08:47→20:59)
[2016-10-14] MEDS: Folic Acid TAB* 1 MG PO SCH (08:48)
[2016-10-14] MEDS: Potassium Chlor TAB* 20 MEQ TAB.ER PO SCH ×2 (08:48→20:59)
[2016-10-14] MEDS: Multivitamins/Minerals TAB PO SCH (08:48)
[2016-10-14] MEDS: Famotidine TAB* 20 MG PO SCH (08:48)
--- NOTE | 2016-10-14 09:59 | PN ---
Subjective Date of Service: 10/14/16 Interval History: Patient had more difficult night. He was quite restless. He kept trying to get out of bed to go "downstairs to talk to Luca (his )". He denies CP, SOB, abd pain, n/v. Objective Active Medications: Acetaminophen (Tylenol Tab*) 650 mg PO Q4H PRN PRN Reason: PAIN Calcium Carbonate (Tums*) 1,000 mg PO TID PRN PRN Reason: HEARTBURN Last Admin: 10/14/16 03:29 Dose: 1,000 mg Carvedilol (Coreg Tab*) 12.5 mg PO 0900,2100 [facility] Last Admin: 10/14/16 08:47 Dose: 12.5 mg Clonidine HCl (Catapres Tab*) 0.1 mg PO BID [facility] Last Admin: 10/14/16 08:47 Dose: 0.1 mg Diazepam (Valium Tab(*)) 0 mg PO .PER WAM SCORE PRN; Protocol PRN Reason: WITHDRAWAL - ALCOHOL Last Admin: 10/14/16 08:46 Dose: 10 mg Famotidine (Pepcid Tab*) 20 mg PO DAILY [facility] Last Admin: 10/14/16 08:48 Dose: 20 mg Folic Acid (Folvite Tab*) 1 mg PO DAILY [facility] Last Admin: 10/14/16 08:48 Dose: 1 mg Heparin Sodium (Porcine) (Heparin Vial(*)) 5,000 units SUBCUT Q8HR [facility] Last Admin: 10/14/16 06:21 Dose: Not Given Losartan Potassium (Cozaar Tab*) 50 mg PO DAILY [facility] Last Admin: 10/14/16 08:47 Dose: 50 mg Magnesium Oxide (Magox 400 Tab*) 400 mg PO DAILY [facility] Last Admin: 10/14/16 08:47 Dose: 400 mg Melatonin (Melatonin (Nf)) 3 mg PO BEDTIME PRN PRN Reason: SLEEP Last Admin: 10/13/16 22:50 Dose: 3 mg Multivitamins/Minerals (Theragran/Minerals Tab*) 1 tab PO DAILY [facility] Last Admin: 10/14/16 08:48 Dose: 1 tab Nicotine (Nicotine Inhaler*) 10 mg INH Q2H PRN PRN Reason: CRAVINGS Last Admin: 10/14/16 08:46 Dose: 10 mg Ondansetron HCl (Zofran Inj*) 4 mg IV Q6H PRN PRN Reason: NAUSEA Last Admin: 10/13/16 23:50 Dose: 4 mg Potassium Chloride (Klor Con Er Tab*) 20 meq PO BID [facility] Last Admin: 10/14/16 08:48 Dose: 20 meq Thiamine HCl (Vitamin B-1 Tab*) 100 mg PO DAILY [facility] Last Admin: 10/14/16 08:46 Dose: 100 mg Tramadol HCl (Ultram*) 50 mg PO Q6H PRN PRN Reason: PAIN Last Admin: 10/13/16 19:08 Dose: 50 mg Vital Signs: Temp Pulse Resp BP Pulse Ox 97.9 F 92 18 176/114 98 10/14/16 06:07 10/14/16 06:07 10/14/16 08:46 10/14/16 06:07 10/14/16 06:07 Oxygen Devices in Use Now: None Appearance: Sedated appeared, but arouses to voice. In NAD Respiratory: Symmetrical Chest Expansion and Respiratory Effort, Clear to Auscultation Cardiovascular: NL Sounds; No Murmurs; No JVD, RRR Abdominal: NL Sounds; No Tenderness; No Distention Extremities: No Edema Skin: No Rash or Ulcers Neurological: - - confused, unable to fully assess level of orientation Result Diagrams: 10/14/16 07:45 10/14/16 07:45 Assess/Plan/Problems-Billing Assessment: Mr. Brown is a 61 yo male PMH a fib, alcohol abuse, cardiomyopathy and HTN who presented to the emergency room requesting alcohol detox. - Patient Problems (1) Alcohol withdrawal Comment: Patient is still requiring multiple doses of Valium He is more confused this morning then he has been the last couple of days, repeat labs including ammonia are essentially WNL Concerned that the long half life of Valium over several days may be contributing to his worsening symptoms Will switch to Ativan at a lower dose for use with [place] protocol Patient is not interested in rehab, he would like to return home after completing withdrawal Appreciate SW consultation (2) Cardiomyopathy Comment: Last EF 40-45% No acute exacerbation (3) Atrial fibrillation Comment: Rate controlled. Pt is not anticoagulated at home. Continue carvedilol. (4) Hypertension Comment: Now normotensive and slightly hypertensive Will resume losartan Carvedilol continued (5) DVT prophylaxis Comment: SQ heparin. Status and Disposition: Inpatient.
[2016-10-14] MEDS: LORazepam TAB(*) 1 MG PO SCH ×3 (13:24→22:52)
[2016-10-15] MEDS: LORazepam TAB(*) 1 MG PO SCH ×4 (00:31→08:41)
[2016-10-15] MEDS: Heparin VIAL(*) 5000 UNITS/ML VIAL (FIVE THOUSAND) SUBCUT SCH ×3 (06:11→20:01)
[2016-10-15] MEDS: Losartan TAB* 25 MG PO SCH (08:41)
[2016-10-15] MEDS: Famotidine TAB* 20 MG PO SCH (08:41)
[2016-10-15] MEDS: Multivitamins/Minerals TAB PO SCH (08:41)
[2016-10-15] MEDS: Carvedilol TAB* 6.25 MG PO SCH ×2 (08:41→20:00)
[2016-10-15] MEDS: Thiamine TAB* 100 MG TAB PO SCH (08:42)
[2016-10-15] MEDS: Folic Acid TAB* 1 MG PO SCH (08:42)
[2016-10-15] MEDS: cloNIDine TAB* 0.1 MG PO SCH ×2 (08:42→20:00)
[2016-10-15] MEDS: Magnesium Oxide TAB* 400 MG PO SCH (08:43)
[2016-10-15] MEDS: Potassium Chlor TAB* 20 MEQ TAB.ER PO SCH ×2 (08:43→20:00)
--- NOTE | 2016-10-15 15:06 | PN ---
Subjective Date of Service: 10/15/16 Interval History: Patient's alertness and orientation has improved overnight and this morning since reducing his benzo dosing. Patient reports improvement in his level of anxiety. No nausea. Occasionally tremulous and still has been moderately hypertensive overnight. Objective Active Medications: Acetaminophen (Tylenol Tab*) 650 mg PO Q4H PRN PRN Reason: PAIN Calcium Carbonate (Tums*) 1,000 mg PO TID PRN PRN Reason: HEARTBURN Last Admin: 10/14/16 03:29 Dose: 1,000 mg Carvedilol (Coreg Tab*) 12.5 mg PO 0900,2100 [facility] Last Admin: 10/15/16 08:41 Dose: 12.5 mg Clonidine HCl (Catapres Tab*) 0.1 mg PO BID [facility] Last Admin: 10/15/16 08:42 Dose: 0.1 mg Famotidine (Pepcid Tab*) 20 mg PO DAILY [facility] Last Admin: 10/15/16 08:41 Dose: 20 mg Folic Acid (Folvite Tab*) 1 mg PO DAILY [facility] Last Admin: 10/15/16 08:42 Dose: 1 mg Heparin Sodium (Porcine) (Heparin Vial(*)) 5,000 units SUBCUT Q8HR [facility] Last Admin: 10/15/16 14:45 Dose: 5,000 units Lorazepam (Ativan Tab(*)) 0 - 6 mg PO .PER [facility] PROTOCOL [facility] PRN Reason: Protocol Last Admin: 10/15/16 08:41 Dose: 1 mg Losartan Potassium (Cozaar Tab*) 50 mg PO DAILY [facility] Last Admin: 10/15/16 08:41 Dose: 50 mg Magnesium Oxide (Magox 400 Tab*) 400 mg PO DAILY [facility] Last Admin: 10/15/16 08:43 Dose: 400 mg Melatonin (Melatonin (Nf)) 3 mg PO BEDTIME PRN PRN Reason: SLEEP Last Admin: 10/13/16 22:50 Dose: 3 mg Multivitamins/Minerals (Theragran/Minerals Tab*) 1 tab PO DAILY [facility] Last Admin: 10/15/16 08:41 Dose: 1 tab Nicotine (Nicotine Inhaler*) 10 mg INH Q2H PRN PRN Reason: CRAVINGS Last Admin: 10/14/16 08:46 Dose: 10 mg Ondansetron HCl (Zofran Inj*) 4 mg IV Q6H PRN PRN Reason: NAUSEA Last Admin: 10/13/16 23:50 Dose: 4 mg Potassium Chloride (Klor Con Er Tab*) 20 meq PO BID [facility] Last Admin: 10/15/16 08:43 Dose: 20 meq Thiamine HCl (Vitamin B-1 Tab*) 100 mg PO DAILY [facility] Last Admin: 10/15/16 08:42 Dose: 100 mg Tramadol HCl (Ultram*) 50 mg PO Q6H PRN PRN Reason: PAIN Last Admin: 10/13/16 19:08 Dose: 50 mg Vital Signs: Temp Pulse Resp BP Pulse Ox 98.3 F 90 16 113/76 100 10/15/16 12:09 10/15/16 12:09 10/15/16 14:00 10/15/16 12:09 10/15/16 12:09 Oxygen Devices in Use Now: None Appearance: Middle aged gentleman in NAD Respiratory: Symmetrical Chest Expansion and Respiratory Effort, Clear to Auscultation Cardiovascular: NL Sounds; No Murmurs; No JVD, RRR Abdominal: NL Sounds; No Tenderness; No Distention Extremities: No Edema Neurological: Alert and Oriented x 3 Result Diagrams: 10/14/16 07:45 10/14/16 07:45 Assess/Plan/Problems-Billing Assessment: Mr. Brown is a 61 yo male PMH a fib, alcohol abuse, cardiomyopathy and HTN who presented to the emergency room requesting alcohol detox. - Patient Problems (1) Alcohol withdrawal Comment: Improved mental status today Cont WAM with lower ativan scale Patient is not interested in rehab, he would like to return home after completing withdrawal Appreciate SW consultation (2) Cardiomyopathy Comment: Last EF 40-45% No acute exacerbation (3) Atrial fibrillation Comment: Rate controlled. Pt is not anticoagulated at home. Continue carvedilol. (4) Hypertension Comment: Moderately hypertensive over the last 48 hrs Clonidine has been added Cont losartan and carvedilol (5) DVT prophylaxis Comment: SQ heparin. Status and Disposition: Inpatient.
[2016-10-16] MEDS: CMC:Melatonin (NF) 3 MG TAB PO PRN (02:40)
[2016-10-16] MEDS: Heparin VIAL(*) 5000 UNITS/ML VIAL (FIVE THOUSAND) SUBCUT SCH ×3 (06:17→21:46)
[2016-10-16] MEDS: Multivitamins/Minerals TAB PO SCH (08:38)
[2016-10-16] MEDS: Folic Acid TAB* 1 MG PO SCH (08:38)
[2016-10-16] MEDS: Losartan TAB* 25 MG PO SCH (08:38)
[2016-10-16] MEDS: Thiamine TAB* 100 MG TAB PO SCH (08:38)
[2016-10-16] MEDS: cloNIDine TAB* 0.1 MG PO SCH (08:39)
[2016-10-16] MEDS: Carvedilol TAB* 6.25 MG PO SCH ×2 (08:39→20:56)
[2016-10-16] MEDS: Famotidine TAB* 20 MG PO SCH (08:39)
[2016-10-16] MEDS: Potassium Chlor TAB* 20 MEQ TAB.ER PO SCH ×2 (08:39→20:56)
[2016-10-16] MEDS: Magnesium Oxide TAB* 400 MG PO SCH (08:39)
--- NOTE | 2016-10-16 09:37 | PN ---
Subjective Date of Service: 10/16/16 Interval History: Mr. Brown reports that he feels "pretty rotten." He denies any specific complaint including chest pain, SOB, nausea, or abdominal pain. He agrees that he is withdrawing from alcohol and "that is going ok" but is concerned about "everything else." He is not able to clarify his concerns. Family History: Unchanged from Admission Social History: Unchanged from Admission Past Medical History: Unchanged from Admission Objective Active Medications: Acetaminophen (Tylenol Tab*) 650 mg PO Q4H PRN Calcium Carbonate (Tums*) 1,000 mg PO TID PRN Carvedilol (Coreg Tab*) 12.5 mg PO 0900,2100 [facility] Clonidine HCl (Catapres Tab*) 0.1 mg PO BID [facility] Famotidine (Pepcid Tab*) 20 mg PO DAILY [facility] Folic Acid (Folvite Tab*) 1 mg PO DAILY [facility] Heparin Sodium (Porcine) (Heparin Vial(*)) 5,000 units SUBCUT Q8HR [facility] Lorazepam (Ativan Tab(*)) 0 - 6 mg PO .PER [facility] PROTOCOL [facility] Losartan Potassium (Cozaar Tab*) 50 mg PO DAILY [facility] Magnesium Oxide (Magox 400 Tab*) 400 mg PO DAILY [facility] Melatonin (Melatonin (Nf)) 3 mg PO BEDTIME PRN Multivitamins/Minerals (Theragran/Minerals Tab*) 1 tab PO DAILY [facility] Nicotine (Nicotine Inhaler*) 10 mg INH Q2H PRN Ondansetron HCl (Zofran Inj*) 4 mg IV Q6H PRN Potassium Chloride (Klor Con Er Tab*) 20 meq PO BID [facility] Thiamine HCl (Vitamin B-1 Tab*) 100 mg PO DAILY [facility] Vital Signs 10/15/16 10/15/16 10/15/16 10:33 12:09 14:00 Temperature 99.2 F 98.3 F Pulse Rate 73 90 Respiratory 16 16 16 Rate Blood Pressure 136/92 113/76 (mmHg) O2 Sat by Pulse 98 100 Oximetry 10/15/16 10/15/16 10/15/16 14:51 16:00 16:20 Temperature 99.7 F 99.1 F Pulse Rate 62 95 Respiratory 16 16 20 Rate Blood Pressure 95/78 98/68 (mmHg) O2 Sat by Pulse 97 98 Oximetry 10/15/16 10/15/16 10/15/16 18:00 18:18 20:30 Temperature 98.3 F 99.1 F Pulse Rate 94 90 Respiratory 16 16 16 Rate Blood Pressure 101/62 106/71 (mmHg) O2 Sat by Pulse 98 99 Oximetry 10/15/16 10/15/16 10/16/16 22:07 22:48 00:05 Temperature 98.3 F Pulse Rate 73 93 Respiratory 16 16 18 Rate Blood Pressure 140/98 123/90 (mmHg) O2 Sat by Pulse 98 98 Oximetry 10/16/16 10/16/16 10/16/16 02:47 05:04 06:24 Temperature Pulse Rate 85 86 80 Respiratory 16 16 16 Rate Blood Pressure 141/98 134/89 141/103 (mmHg) O2 Sat by Pulse 98 99 100 Oximetry 10/16/16 10/16/16 07:27 07:39 Temperature 97.3 F Pulse Rate 85 Respiratory 16 16 Rate Blood Pressure 114/79 (mmHg) O2 Sat by Pulse 99 Oximetry Oxygen Devices in Use Now: None Appearance: Male sitting up on edge of bed eating breakfast in NAD Eyes: No Scleral Icterus Ears/Nose/Mouth/Throat: Mucous Membranes Moist Neck: Trachea Midline Respiratory: Symmetrical Chest Expansion and Respiratory Effort, Clear to Auscultation Cardiovascular: NL Sounds; No Murmurs; No JVD, No Edema Abdominal: NL Sounds; No Tenderness; No Distention Lymphatic: No Cervical Adenopathy Extremities: No Edema Skin: No Rash or Ulcers Neurological: NL Muscle Strength and Tone, - - Alert and oriented x 3 but making confused statements Nutrition: Taking PO's Result Diagrams: 10/14/16 07:45 10/14/16 07:45 Assess/Plan/Problems-Billing Assessment: Mr. Brown is a 61 yo male PMH a fib, alcohol abuse, cardiomyopathy and HTN who presented to the emergency room requesting alcohol detox. - Patient Problems (1) Alcohol withdrawal Comment: - Mental status continues to improve slowly but patient remains weak and unsteady on his feet. PT eval pending. - Cont WAM with lower ativan scale though has not required it since 10/15/16. - Appreciate SW consultation. Patient is not interested in rehab. (2) Alcoholic hepatitis Comment: - Resolved. - Asymptomatic elevation in LFTs, suspect alcoholic hepatitis. (3) Electrolyte abnormality Comment: - Resolved. - Continue potassium supplementation. (4) Hypertension Comment: - SBP 80-140s. - D/c clonidine given that patient's BP is very labile. Continue losartan and carvedilol. (5) Atrial fibrillation Comment: - Rate controlled. - Pt is not anticoagulated at home due to alcoholism and poor functional status. - Continue carvedilol. (6) Thrombocytopenia Comment: - Baseline. - Suspect related to alcohol use. (7) Full code status (8) DVT prophylaxis Comment: SQ heparin. Status and Disposition: Inpatient. Anticipate discharge to home when medically stable. However, patient is weak and unsteady on his feet. May need subacute rehab.
[2016-10-16] MEDS: LORazepam TAB(*) 1 MG PO PRN (13:48)
[2016-10-16] MEDS: Nicotine Inhaler* 10 MG AMP INH PRN (20:56)
[2016-10-17] MEDS: LORazepam TAB(*) 1 MG PO PRN (01:51)
[2016-10-17] MEDS: LORazepam TAB(*) 1 MG PO SCH ×2 (03:53→06:12)
[2016-10-17] MEDS ORDERED: hydrALAZINE IV* 20 MG/ML VIAL IV PRN (05:47)
[2016-10-17] MEDS: Heparin VIAL(*) 5000 UNITS/ML VIAL (FIVE THOUSAND) SUBCUT SCH ×3 (06:04→21:40)
[2016-10-17] MEDS: Ondansetron INJ* 2 MG/ML VIAL IV PRN (08:31)
[2016-10-17] MEDS: Potassium Chlor TAB* 20 MEQ TAB.ER PO SCH ×2 (08:34→21:44)
[2016-10-17] MEDS: Magnesium Oxide TAB* 400 MG PO SCH (08:34)
[2016-10-17] MEDS: Thiamine TAB* 100 MG TAB PO SCH (08:34)
[2016-10-17] MEDS: Losartan TAB* 25 MG PO SCH (08:34)
[2016-10-17] MEDS: Multivitamins/Minerals TAB PO SCH (08:34)
[2016-10-17] MEDS: Famotidine TAB* 20 MG PO SCH (08:34)
[2016-10-17] MEDS: Folic Acid TAB* 1 MG PO SCH (08:34)
[2016-10-17] MEDS: Carvedilol TAB* 6.25 MG PO SCH ×2 (08:34→21:43)
[2016-10-17 10:43] LABS: Folate > 20.00 ng/mL (>3.99)
[2016-10-17 10:45] LABS: Vitamin B12 674 pg/mL (180-914)
[2016-10-17] MEDS ORDERED: LORazepam TAB(*) 1 MG PO PRN (11:29)
--- NOTE | 2016-10-17 11:30 | PN ---
Subjective Date of Service: 10/17/16 Family History: Unchanged from Admission Social History: Unchanged from Admission Past Medical History: Unchanged from Admission Objective Active Medications: Acetaminophen (Tylenol Tab*) 650 mg PO Q4H PRN Calcium Carbonate (Tums*) 1,000 mg PO TID PRN Carvedilol (Coreg Tab*) 12.5 mg PO 0900,2100 [facility] Famotidine (Pepcid Tab*) 20 mg PO DAILY [facility] Folic Acid (Folvite Tab*) 1 mg PO DAILY [facility] Heparin Sodium (Porcine) (Heparin Vial(*)) 5,000 units SUBCUT Q8HR [facility] Hydralazine HCl (Apresoline Iv*) 10 mg IV Q4H PRN Lorazepam (Ativan Tab(*)) 0 - 6 mg PO .PER [facility] PROTOCOL [facility] Lorazepam (Ativan Tab(*)) 1 mg PO Q6H PRN Losartan Potassium (Cozaar Tab*) 50 mg PO DAILY [facility] Magnesium Oxide (Magox 400 Tab*) 400 mg PO DAILY [facility] Melatonin (Melatonin (Nf)) 3 mg PO BEDTIME PRN Multivitamins/Minerals (Theragran/Minerals Tab*) 1 tab PO DAILY [facility] Nicotine (Nicotine Inhaler*) 10 mg INH Q2H PRN Ondansetron HCl (Zofran Inj*) 4 mg IV Q6H PRN Potassium Chloride (Klor Con Er Tab*) 20 meq PO BID [facility] Thiamine HCl (Vitamin B-1 Tab*) 100 mg PO DAILY [facility] Vital Signs 10/16/16 10/16/16 10/16/16 12:00 12:23 13:48 Temperature 97.4 F Pulse Rate 74 Respiratory 16 16 16 Rate Blood Pressure 151/98 (mmHg) O2 Sat by Pulse 100 Oximetry 10/16/16 10/16/16 10/16/16 13:50 14:06 15:42 Temperature 98.5 F Pulse Rate 86 Respiratory 16 16 16 Rate Blood Pressure 85/62 (mmHg) O2 Sat by Pulse 99 Oximetry 10/16/16 10/16/16 10/16/16 15:48 18:00 18:24 Temperature 98.4 F 98.4 F 98.3 F Pulse Rate 80 85 96 Respiratory 16 16 16 Rate Blood Pressure 115/76 88/71 112/78 (mmHg) O2 Sat by Pulse 85 98 Oximetry 10/16/16 10/16/16 10/16/16 19:57 20:10 21:47 Temperature 98.6 F 99.1 F Pulse Rate 92 92 Respiratory 17 20 18 Rate Blood Pressure 113/89 109/76 (mmHg) O2 Sat by Pulse 99 100 Oximetry 10/17/16 10/17/16 10/17/16 00:01 00:02 01:43 Temperature 98.8 F 98.7 F Pulse Rate 90 100 Respiratory 16 20 Rate Blood Pressure 167/112 195/121 (mmHg) O2 Sat by Pulse 100 97 Oximetry 10/17/16 10/17/16 10/17/16 01:44 01:51 03:46 Temperature Pulse Rate Respiratory 20 Rate Blood Pressure 139/100 172/120 (mmHg) O2 Sat by Pulse Oximetry 10/17/16 10/17/16 10/17/16 03:49 03:51 03:53 Temperature 98.5 F Pulse Rate 97 Respiratory 20 20 20 Rate Blood Pressure 173/119 (mmHg) O2 Sat by Pulse 100 Oximetry 10/17/16 10/17/16 10/17/16 05:35 05:53 06:12 Temperature 98.7 F Pulse Rate 90 Respiratory 20 17 22 Rate Blood Pressure 179/125 (mmHg) O2 Sat by Pulse 93 Oximetry 10/17/16 10/17/16 08:12 08:29 Temperature 98.4 F Pulse Rate 94 Respiratory 18 16 Rate Blood Pressure 173/107 (mmHg) O2 Sat by Pulse 99 Oximetry Oxygen Devices in Use Now: None Appearance: Male sitting up in bed in NAD Eyes: No Scleral Icterus Ears/Nose/Mouth/Throat: Mucous Membranes Moist Neck: Trachea Midline Respiratory: Symmetrical Chest Expansion and Respiratory Effort, Clear to Auscultation Cardiovascular: NL Sounds; No Murmurs; No JVD, No Edema Abdominal: NL Sounds; No Tenderness; No Distention Lymphatic: No Cervical Adenopathy Extremities: No Edema Skin: No Rash or Ulcers Neurological: - - Alert, disoriented and confused in general, oriented to self, generalized weakness and gait instability Nutrition: Taking PO's Result Diagrams: 10/14/16 07:45 10/14/16 07:45 Assess/Plan/Problems-Billing Assessment: Mr. Brown is a 61 yo male PMH a fib, alcohol abuse, cardiomyopathy and HTN who presented to the emergency room requesting alcohol detox. - Patient Problems (1) Alcohol withdrawal Comment: - Mental status remains altered. - Ammonia, folate, Vit B12 normal. Plan for EEG, MRI brain, and neuro consult. - D/C WAM protocol but will have ativan available prn for agitation that is not able to be re-directed. - Appreciate SW consultation. Patient was not interested in rehab on arrival. (2) Alcoholic hepatitis Comment: - Resolved. - Asymptomatic elevation in LFTs, suspect alcoholic hepatitis. (3) Electrolyte abnormality Comment: - Resolved. - Continue potassium supplementation. (4) Hypertension Comment: - SBP 80-140s. - D/c clonidine given that patient's BP is very labile. Continue losartan and carvedilol. (5) Atrial fibrillation Comment: - Rate controlled. - Pt is not anticoagulated at home due to alcoholism and poor functional status. - Continue carvedilol. (6) Thrombocytopenia Comment: - Baseline. - Suspect related to alcohol use. (7) Full code status (8) DVT prophylaxis Comment: SQ heparin. Status and Disposition: Inpatient. Anticipate discharge to home when medically stable. However, patient is weak and unsteady on his feet. May need subacute rehab.
[2016-10-17 15:02] LABS: Urine Bilirubin Negative (Negative); Urine Glucose Negative (Negative); Urine Nitrite Negative (Negative)
--- NOTE | 2016-10-17 20:48 | RAD ---
HISTORY: Confusion, weakness, visual hallucination, alcohol abuse COMPARISONS: Head CT dated October 08, 2016, MRI dated November 02, 2009 TECHNIQUE: The following sequences were obtained of the head: Sagittal T1-weighted images, axial T2-weighted images, axial FLAIR images, axial susceptibility weighted images, axial T1-weighted images. Additionally, axial diffusion-weighted images were obtained with calculated apparent diffusion coefficients. FINDINGS: HEMORRHAGE/INFARCT: There is no hemorrhage or acute infarct. MASSES/SHIFT: There is no mass or shift. EXTRA-AXIAL SPACES/MENINGES: There are no extra-axial fluid collections. SULCI AND VENTRICLES: There is diffuse and proportional enlargement of the sulci and ventricles. CEREBRUM: There is multifocal elevated T2/FLAIR signal in the periventricular and subcortical white matter. There is also elevated T2/FLAIR signal within the thalami bilaterally BRAINSTEM: There is elevated T2/FLAIR signal along the tectal plate CEREBELLUM: There are no focal parenchymal abnormalities. The cerebellar tonsils are normal in size and position. SELLA: The sella is normal. PINEAL: The pineal region is clear. CP ANGLE/TEMPORAL BONES: The labyrinthine structures are grossly normal. VESSELS: Normal flow-voids are noted within the visualized vertebral vasculature. DIFFUSION ABNORMALITIES: There are no diffusion abnormalities. PARANASAL SINUSES/MASTOIDS: The paranasal sinuses are clear. ORBITS: The orbits are unremarkable. BONES AND SOFT TISSUE: No bone or soft tissue abnormalities are noted. OTHER: None IMPRESSION: 1. DIFFUSE INVOLUTIONAL CHANGE. 2. THERE IS MULTIFOCAL ELEVATED T2/FLAIR SIGNAL IN THE PERIVENTRICULAR AND SUBCORTICAL WHITE MATTER. THESE FINDINGS ARE NONSPECIFIC; HOWEVER, THERE ARE SOME FEATURES SUGGESTIVE OF CHRONIC IS ENCEPHALOPATHY GIVEN THE HISTORY OF ALCOHOL ABUSE. DIFFERENTIAL DIAGNOSIS INCLUDES CHRONIC SMALL VESSEL ISCHEMIA AND THE SEQUELA OF PREVIOUS INFECTION OR INFLAMMATION
[2016-10-17] MEDS ORDERED: Thiamine IV* 100 MG/ML 2 ML VIAL IV SCH (21:00)
[2016-10-17] MEDS: NS 0.9% IV SCH (21:40)
[2016-10-17] MEDS: THIAMINE IV SCH (21:40)
--- NOTE | 2016-10-17 22:11 | CONS ---
NEUROLOGY CONSULTATION: DATE OF CONSULT: 10/17/16 LOCATION: The patient is on 404. REQUESTING PROVIDER: Criss Allred NP REASON FOR CONSULT: Encephalopathy. HISTORY OF PRESENT ILLNESS: Bal Brown is a 61-year-old man with a history of atrial fibrillation, alcohol abuse, hypertension, and cardiomyopathy, who presented to the emergency department on 10/08/16 apparently requesting alcohol detox. Today, the patient tells me that about 2 weeks ago, he came to the hospital because he had a "wicked dizzy spell" and was drinking too much. He says that "something needed to be done." He was placed on a WAM protocol and has been receiving benzodiazepines, but has not received any Ativan since today at 6:12 a.m. Prior to that, he received a milligram at 1:51 in the morning. He has been receiving thiamine 100 mg per day since admission and he also received a banana bag. Ms. Allred indicates that he has been more confused since he has been admitted and has had increasing weakness and unsteadiness on his feet and Neurology consult was requested for this reason. He had an EEG earlier today and he has an MRI, which is pending. On my evaluation, the patient indicates that he has low back pain, neck pain, and some headache. He indicates that he feels very weak overall. He indicates that he has a poor appetite, but also that the food was not good at the hospital. He indicates that his vision is a little bit cloudy and on his admission, he also reported some blurry vision, which was reported to have been there since he had cataract surgery. PAST MEDICAL HISTORY: 1. Atrial fibrillation. 2. Alcohol abuse. 3. Spinal stenosis. 4. Cervical spine fracture. 5. SVT. 6. Cardiomyopathy. 7. Hypertension. 8. Skin cancer. SURGICAL HISTORY: 1. Status post ORIF of his wrist. 2. Procedure for C-spine fracture. 3. Bilateral cataracts. 4. Mole excisions. HOME MEDICATIONS: Include: 1. Coreg 25 mg twice daily. 2. Losartan 50 mg daily. 3. Benadryl 3 times daily as needed. 4. Folic acid 1 mg daily. 5. Thiamine 100 mg daily. 6. Multivitamin 1 tablet daily. ALLERGIES: TETRACYCLINE, LISINOPRIL, PENICILLIN, LORAZEPAM, the latter of which causes agitation. FAMILY HISTORY: Parents with hypertension. Mother with diabetes. SOCIAL HISTORY: He is a pack a day smoker for 38 years. He indicates that he has been a heavy drinker for the past 30 years with some "breaks in between." He is retired and lives with his significant other. REVIEW OF SYSTEMS: As per the HPI, otherwise negative. PHYSICAL EXAM: Vital Signs: Temperature 98.3, blood pressure 165/107, heart rate 84, oxygen saturation 99% on room air. On general examination, he is a thin man, who appears older than his stated age and in no acute distress. His heart is in a regular rate and rhythm. His lungs are clear to auscultation bilaterally. He is soft spoken and I often have to ask him to repeat himself in order for him to be understood. On neurologic exam, he is oriented to the month and the year, but stated it was the . He knew the president. He stated he was in [facility]. He thought he had been here for 2 weeks when he has been here for 9 days. He registered 3/3 objects, but when asked to recall these objects after a few minutes, he stated completely unrelated objects. On cranial nerve examination, pupils were equal, round, and reactive from 4 to 3 mm bilaterally. His versions are full without nystagmus. He denies any diplopia. Visual elliott are full to confrontation. Facial sensation and musculature is full and symmetric. Hearing is intact to voice. The palate elevates symmetrically and the tongue is midline. On motor examination, he has got normal tone in the upper and lower extremities. There is no obvious pronator drift, but he has impersistence with these motor movements and submaximal effort. He seems to have grade 4 weakness of the right biceps and grade 4 weakness of the left triceps. He was able to lift both lower extremities antigravity, but did not provide much resistance in either leg against the examiner. Sensation was intact to light touch in the upper and lower extremities. Vibration seems to be decreased in the toes, but he was not able to quantify this further. Reflexes were 2+ in the upper extremities, 2+ at the knees, and difficult to elicit at the ankles. Toes were mute or down. There was no obvious ataxia on finger-to- nose testing, but he would stop approximately 3 or 4 inches from the examiner's finger consistently, though again he denied diplopia. He did not seem to have any ataxia on [id number] testing, but had submaximal effort in this maneuver as well, possibly related to lower extremity weakness. He was not ambulated at this time. DIAGNOSTIC STUDIES/LAB DATA: CBC is notable for hematocrit of 37, hemoglobin of 12.5, platelets of 116. Chemistry panel shows improving LFTs from 125 on , AST now 43, and ALT of 134, now 84 as of 10/14/16. Alkaline phosphatase has been normal. Ammonia on 10/14/16 was 37. His albumin is normal. B12 is 674. Folate is greater than 20 and TSH is 0.51 on the . Urinalysis was notable only for trace ketones today. His alcohol level on admission on was 411 at 10 a.m. His U-tox is otherwise negative. INR was low at 0.82. Vitamin B1 level has been ordered. EEG was performed and notable only for the patient's sleeping through most of the recording and otherwise the slight slow posterior dominant rhythm, but no focal features. IMPRESSION: Bal Brown is a 61-year-old man with a history of alcoholism, admitted for alcohol detox, who reports some blurred vision and has developed some altered mental status/encephalopathy during his admission here as well as some apparent weakness. His nurse indicates that she knows him from previous admissions and he is normally climbing out of bed constantly and today, she has been unable to get him to motivate to get out of bed. He may have some weakness on exam, which does not fit any particular pattern. He also does seem to have some impairment in his delayed recall and questionably some confabulation in his attempts to recall the 3 words which were given to him. Given his history of heavy drinking, I am concerned that Wernicke's encephalopathy is within the differential and at this point, I am going to change his thiamine dosing to high-dose IV thiamine 500 mg 3 times daily. MRI is pending, which may help to shed some light on the etiology here, especially if this is Wernicke's. In addition, his thiamine level is pending at this time. Thank you for this consultation. I will follow up his MRI scan tomorrow. [id number]/[facility] #: [id number] [facility]
[2016-10-18] MEDS: THIAMINE IV SCH ×3 (05:11→20:33)
[2016-10-18] MEDS: NS 0.9% IV SCH ×3 (05:11→20:33)
[2016-10-18 05:41] LABS: Hematocrit 43 % (42-52); Hemoglobin 14.8 g/dl (14.0-18.0); Mean Corpuscular HGB Conc 34 g/dl (31-36); Mean Corpuscular Hemoglobin 35 pg (27-31); Mean Corpuscular Volume 102 fL (80-94); Mean Platelet Volume 9 um3 (7.4-10.4); Red Blood Count 4.24 10^6/ul (4.0-5.4); Red Cell Distribution Width 13 % (10.5-15); White Blood Count 6.5 10^3/ul (3.5-10.8)
[2016-10-18 05:50] LABS: BUN/Creatinine Ratio 21.9 (8-20); Calcium 9.8 mg/dL (8.6-10.3); EGFR African American 139.6 (>60); EGFR Non-African American 108.5 (>60); Potassium 4.2 mmol/L (3.5-5.0)
[2016-10-18] MEDS: Heparin VIAL(*) 5000 UNITS/ML VIAL (FIVE THOUSAND) SUBCUT SCH ×3 (07:25→20:33)
[2016-10-18] MEDS: Losartan TAB* 25 MG PO SCH (08:45)
[2016-10-18] MEDS: Carvedilol TAB* 6.25 MG PO SCH ×2 (08:46→20:32)
[2016-10-18] MEDS: Folic Acid TAB* 1 MG PO SCH (08:49)
[2016-10-18] MEDS: Famotidine TAB* 20 MG PO SCH (08:49)
[2016-10-18] MEDS: Magnesium Oxide TAB* 400 MG PO SCH (08:50)
[2016-10-18] MEDS: Multivitamins/Minerals TAB PO SCH (08:52)
[2016-10-18] MEDS: Potassium Chlor TAB* 20 MEQ TAB.ER PO SCH ×2 (08:52→20:33)
--- NOTE | 2016-10-18 08:53 | PN ---
Subjective Date of Service: 10/18/16 Interval History: Mr. Brown remains confused. He does understand that he is weak and unable to even feed himself, which is distressing. He denies any physical complaints including chest pain, SOB, nausea, or abdominal pain. Family History: Unchanged from Admission Social History: Unchanged from Admission Past Medical History: Unchanged from Admission Objective Active Medications: Acetaminophen (Tylenol Tab*) 650 mg PO Q4H PRN Calcium Carbonate (Tums*) 1,000 mg PO TID PRN Carvedilol (Coreg Tab*) 12.5 mg PO 0900,2100 [facility] Famotidine (Pepcid Tab*) 20 mg PO DAILY [facility] Folic Acid (Folvite Tab*) 1 mg PO DAILY [facility] Heparin Sodium (Porcine) (Heparin Vial(*)) 5,000 units SUBCUT Q8HR [facility] Hydralazine HCl (Apresoline Iv*) 10 mg IV Q4H PRN Thiamine HCl 500 mg/ Sodium (Chloride) 55 mls @ 110 mls/hr IV Q8H [facility] Lorazepam (Ativan Tab(*)) 1 mg PO Q6H PRN Losartan Potassium (Cozaar Tab*) 50 mg PO DAILY [facility] Magnesium Oxide (Magox 400 Tab*) 400 mg PO DAILY [facility] Melatonin (Melatonin (Nf)) 3 mg PO BEDTIME PRN Multivitamins/Minerals (Theragran/Minerals Tab*) 1 tab PO DAILY [facility] Nicotine (Nicotine Inhaler*) 10 mg INH Q2H PRN Ondansetron HCl (Zofran Inj*) 4 mg IV Q6H PRN Potassium Chloride (Klor Con Er Tab*) 20 meq PO BID [facility] Vital Signs 10/17/16 10/17/16 10/17/16 10:21 13:17 13:29 Temperature 98.7 F 98.8 F Pulse Rate 77 89 Respiratory 16 18 18 Rate Blood Pressure 147/90 134/102 (mmHg) O2 Sat by Pulse 98 97 Oximetry 10/17/16 10/17/16 10/17/16 13:30 15:36 21:45 Temperature 98.3 F Pulse Rate 84 Respiratory 18 24 16 Rate Blood Pressure 165/107 (mmHg) O2 Sat by Pulse 99 Oximetry 10/17/16 10/17/16 10/18/16 22:39 23:28 03:41 Temperature 98.0 F 99.0 F 99.4 F Pulse Rate 91 76 84 Respiratory 32 16 20 Rate Blood Pressure 158/110 152/114 159/113 (mmHg) O2 Sat by Pulse 97 98 98 Oximetry 10/18/16 10/18/16 07:39 07:40 Temperature 98.4 F Pulse Rate 90 90 Respiratory 18 18 Rate Blood Pressure 147/102 (mmHg) O2 Sat by Pulse 98 97 Oximetry Oxygen Devices in Use Now: None Appearance: Male sitting up in chair in NAD Eyes: No Scleral Icterus Ears/Nose/Mouth/Throat: Mucous Membranes Moist Neck: Trachea Midline Respiratory: Symmetrical Chest Expansion and Respiratory Effort, Clear to Auscultation Cardiovascular: NL Sounds; No Murmurs; No JVD, No Edema Abdominal: NL Sounds; No Tenderness; No Distention Lymphatic: No Cervical Adenopathy Extremities: No Edema Skin: No Rash or Ulcers Neurological: Alert and Oriented x 3, NL Muscle Strength and Tone Nutrition: Taking PO's Result Diagrams: 10/18/16 05:28 10/18/16 05:28 Assess/Plan/Problems-Billing Assessment: Mr. Brown is a 61 yo male PMH a fib, alcohol abuse, cardiomyopathy and HTN who presented to the emergency room requesting alcohol detox. - Patient Problems (1) Alcohol withdrawal Comment: - Mental status remains altered. - Ammonia, folate, Vit B12 normal. - Appreciate neuro consult. MRI brain found nonspecifc elevated T2 flair signal consistent with wernicke's encephalopathy. - Continue IV thiamine. - D/C WAM protocol but will have ativan available prn for agitation that is not able to be re-directed. - Appreciate SW consultation. Patient was not interested in rehab on arrival. (2) Alcoholic hepatitis Comment: - Resolved. - Asymptomatic elevation in LFTs, suspect alcoholic hepatitis. (3) Electrolyte abnormality Comment: - Resolved. - Continue potassium supplementation. (4) Hypertension Comment: - SBP 80-140s. - D/c clonidine given that patient's BP is very labile. Continue losartan and carvedilol. (5) Atrial fibrillation Comment: - Rate controlled. - Pt is not anticoagulated at home due to alcoholism and poor functional status. - Continue carvedilol. (6) Thrombocytopenia Comment: - Baseline. - Suspect related to alcohol use. (7) Full code status (8) DVT prophylaxis Comment: SQ heparin. Status and Disposition: Inpatient. Anticipate discharge to home when medically stable. However, patient is weak and unsteady on his feet. May need subacute rehab.
--- NOTE | 2016-10-18 11:44 | EEG ---
ELECTROENCEPHALOGRAPHY: DATE OF STUDY: 10/17/16 - ROOM #404 LOCATION: The patient is an inpatient. ORDERING PROVIDER: Criss Allred NP HISTORY: This is a 61-year-old man with a history of alcoholism, who came into the emergency department with a request for alcohol detox. He states that he has had dizziness and lightheadedness for the past few weeks along with blurry vision after having cataract surgery. He has been on the [place] protocol. He has been more confused over the past few days. An EEG was requested to evaluate for epileptiform abnormalities. MEDICATIONS: 1. Zofran. 2. Melatonin. 3. Ativan. 4. Apresoline. 5. Tums. 6. Tylenol. 7. Vitamin B1. 8. Multivitamin. 9. Magnesium oxide. 10. Cozaar. 11. Folvite. 12. Pepcid. 13. Klor-Con. 14. Coreg. 15. Heparin. DESCRIPTION: The EEG was recorded mainly in the sleep state. The sleep background was appropriately organized with well-developed sleep spindles and vertex waves. The sleep transients showed appropriate morphology and bilaterally synchronous and symmetrical. When the patient was briefly aroused from sleep, the background showed normal organization with clearly defined anterior to posterior voltage and frequency gradients. There was a defined posterior dominant rhythm of 8 Hz, which was symmetrical, but slower than expected for age. Anteriorly, there was an expected pattern of lower voltage, irregular, mixed faster frequencies. In addition, throughout the background, there was excess beta activity noted. Throughout the recording, there were no epileptiform discharges, focal features , paroxysmal features, or significant interhemispheric asymmetries. IMPRESSION: This is a mildly abnormal sleep and brief waking EEG due to the presence of a slow posterior dominant rhythm. These findings are suggestive of a mild, diffuse, nonspecific encephalopathy. Excess beta activity is expected in the setting of benzodiazepine administration. [id number]/[facility] #: [id number] [facility]
[2016-10-18] MEDS: Acetaminophen TAB* 325 MG PO PRN (16:16)
[2016-10-18] MEDS ORDERED: Thiamine IV* 100 MG/ML 2 ML VIAL ONE (20:18)
[2016-10-18] MEDS: CMC:Melatonin (NF) 3 MG TAB PO PRN (20:32)
--- NOTE | 2016-10-19 04:19 | PN ---
PROGRESS NOTE: DATE OF FOLLOWUP: 10/18/16 OVERNIGHT EVENTS: No acute overnight events. The patient remains weak and says that he is having difficulties with his perception when trying to reach for objects. He is not wanting to try to work with physical therapy. He reports feeling frustrated today. He was seated in the chart at his bedside when I entered the room. He underwent MRI of the brain yesterday. MEDICATIONS: Reviewed and include: 1. Tylenol as needed. 2. Tums 1000 mg 3 times daily. 3. Carvedilol 12.5 mg daily. 4. Pepcid 20 mg daily. 5. Folic acid 1 mg daily. 6. Heparin. 7. Ativan 1 mg p.o. q.6 hours p.r.n. 8. Cozaar. 9. Magnesium oxide. 10. Melatonin. 11. Thiamine 500 mg IV q.8 hours. PHYSICAL EXAMINATION: Vital Signs: Temperature 99, blood pressure 97/77, heart rate 96 and oxygen saturation is 100% on room air. I note that his blood pressures had been significantly elevated until the 2 most recent readings with ranges from 109/76 at 9:45 on 10/16/16 upwards of 179/125 and most recently this morning 147/102. On general exam, he is soft spoken, appears older than his stated age and somewhat disheveled sitting in no acute distress in the chair at his bedside. He has ice cream in front of him and has difficulty reaching for the spoon accurately with his right hand. He reports pain in his back and his right shoulder. His eye movements appear full without any obvious nystagmus. He does not report diplopia. His face is symmetric. On motor examination, he has limited ability to raise his right arm and cannot go more than 90 degrees. He is able to raise the left arm fully antigravity. The lower extremities feel full strength. Reflexes were difficult to elicit at the knees and the ankles. Toes were downgoing. On finger to nose testing, he again stops short of the examiner's finger with his right hand by approximately 4 or 5 inches. There is no obvious ataxia on his left hand with [id number] testing. There is no obvious ataxia with [id number] testing either. DATA: His MRI scan of the brain was personally reviewed and discussed with Dr. Guerrero. Compared to an MRI from 7 years ago, he has had progression of T2/ FLAIR hyperintensities in the deep white matter bilaterally and also has evidence of increased signal in the thalami bilaterally as well as in the brainstem along the tectal plate. These findings could be consistent with Wernicke's encephalopathy. IMPRESSION: Bal Brown is a 61-year-old man with a history of alcohol abuse who presented to the hospital on 10/08/16 requesting alcohol detox. He has subsequently exhibited progressive encephalopathy as well as gait disturbance. He also appears to have some coordination issues, but not necessarily eleanor ataxia. The constellation of findings in the setting of alcohol abuse was concerning for Wernicke's encephalopathy, and he was started on high-dose thiamine yesterday. His MRI scan could also be consistent with Wernicke's encephalopathy, so he should be continued on IV thiamine 500 mg 3 times daily for a total of 3 days and then switched to 250 mg once daily IV for another 3 days. At that point, he can be changed over to oral 100 mg daily thiamine. He should continue to try to work with physical therapy. Thank you for this consultation. We will continue to follow him. [id number]/[facility] #: [id number] [facility]
[2016-10-19] MEDS: THIAMINE IV SCH ×3 (04:32→20:08)
[2016-10-19] MEDS: NS 0.9% IV SCH ×3 (04:32→20:08)
[2016-10-19] MEDS: Heparin VIAL(*) 5000 UNITS/ML VIAL (FIVE THOUSAND) SUBCUT SCH ×3 (05:06→21:49)
--- NOTE | 2016-10-19 07:34 | PN ---
Subjective Date of Service: 10/19/16 Interval History: Mr. Brown states that he feels "terrible" and "about the same as yesterday. He denies acute complaint including chest pain, SOB, nausea, or abdominal pain. Family History: Unchanged from Admission Social History: Unchanged from Admission Past Medical History: Unchanged from Admission Objective Active Medications: Acetaminophen (Tylenol Tab*) 650 mg PO Q4H PRN Calcium Carbonate (Tums*) 1,000 mg PO TID PRN Carvedilol (Coreg Tab*) 12.5 mg PO 0900,2100 SEB Famotidine (Pepcid Tab*) 20 mg PO DAILY SEB Folic Acid (Folvite Tab*) 1 mg PO DAILY SEB Heparin Sodium (Porcine) (Heparin Vial(*)) 5,000 units SUBCUT Q8HR SEB Hydralazine HCl (Apresoline Iv*) 10 mg IV Q4H PRN Thiamine HCl 500 mg/ Sodium (Chloride) 55 mls @ 110 mls/hr IV Q8H SEB Lorazepam (Ativan Tab(*)) 1 mg PO Q6H PRN Losartan Potassium (Cozaar Tab*) 50 mg PO DAILY SEB Magnesium Oxide (Magox 400 Tab*) 400 mg PO DAILY SEB Melatonin (Melatonin (Nf)) 3 mg PO BEDTIME PRN Multivitamins/Minerals (Theragran/Minerals Tab*) 1 tab PO DAILY SEB Nicotine (Nicotine Inhaler*) 10 mg INH Q2H PRN Ondansetron HCl (Zofran Inj*) 4 mg IV Q6H PRN Potassium Chloride (Klor Con Er Tab*) 20 meq PO BID [facility] Vital Signs 10/18/16 10/18/16 10/18/16 07:39 07:40 08:00 Temperature 98.4 F Pulse Rate 90 90 Respiratory 18 18 16 Rate Blood Pressure 147/102 (mmHg) O2 Sat by Pulse 98 97 Oximetry 10/18/16 10/18/16 10/18/16 11:16 15:46 19:00 Temperature 97.4 F 99.0 F Pulse Rate 93 96 Respiratory 17 24 24 Rate Blood Pressure 99/70 97/77 (mmHg) O2 Sat by Pulse 93 100 Oximetry 10/18/16 10/18/16 10/19/16 19:42 20:00 00:00 Temperature 98.4 F 98.3 F Pulse Rate 88 92 Respiratory 24 24 16 Rate Blood Pressure 107/72 139/94 (mmHg) O2 Sat by Pulse 96 98 Oximetry 10/19/16 10/19/16 10/19/16 00:15 02:15 04:33 Temperature 98.5 F Pulse Rate 93 Respiratory 18 18 20 Rate Blood Pressure 158/124 (mmHg) O2 Sat by Pulse 100 Oximetry Oxygen Devices in Use Now: None Appearance: Male lying in bed in NAD Eyes: No Scleral Icterus Ears/Nose/Mouth/Throat: Mucous Membranes Moist Neck: Trachea Midline Respiratory: Symmetrical Chest Expansion and Respiratory Effort, Clear to Auscultation Cardiovascular: NL Sounds; No Murmurs; No JVD, No Edema Abdominal: NL Sounds; No Tenderness; No Distention Lymphatic: No Cervical Adenopathy Extremities: No Edema Skin: No Rash or Ulcers Neurological: - - Alert, oriented to self, generalized weakness, no nystagmus, no focal deficit Result Diagrams: 10/18/16 05:28 10/18/16 05:28 Assess/Plan/Problems-Billing Assessment: Mr. Brown is a 61 yo male PMH a fib, alcohol abuse, cardiomyopathy and HTN who was admitted on 10/08/16for alcohol detox but has persistent weakness and confusion with suspected Wernicke's encephalopathy. - Patient Problems (1) Wernicke encephalopathy Comment: - Appreciate neuro consult. - MRI brain consistent with Wernicke's. - Continue high dose IV thiamine. 500mg IV TID x 3 days (complete on 10/20/16), then 250mg IV daily x 3 days. (2) Alcohol withdrawal Comment: - Resolved. - But now with Wernicke's Encephalopathy. (3) Alcoholic hepatitis Comment: - Resolved. - Asymptomatic elevation in LFTs, suspect alcoholic hepatitis. (4) Electrolyte abnormality Comment: - K up to 4.2. - Decrease daily potassium supplementation. (5) Hypertension Comment: - SBP 80-140s. - D/c clonidine given that patient's BP is very labile. Continue losartan and carvedilol. (6) Atrial fibrillation Comment: - Rate controlled. - Pt is not anticoagulated at home due to alcoholism and poor functional status. - Continue carvedilol. (7) Thrombocytopenia Comment: - Baseline. - Suspect related to alcohol use. (8) Full code status (9) DVT prophylaxis Comment: SQ heparin. Status and Disposition: Inpatient. Patient will likely need subacute rehab vs NH placement due to weakness and inability to ambulate.
[2016-10-19] MEDS: Famotidine TAB* 20 MG PO SCH (07:50)
[2016-10-19] MEDS: Folic Acid TAB* 1 MG PO SCH (07:50)
[2016-10-19] MEDS: Magnesium Oxide TAB* 400 MG PO SCH (07:50)
[2016-10-19] MEDS: Carvedilol TAB* 6.25 MG PO SCH ×2 (07:50→21:48)
[2016-10-19] MEDS: Losartan TAB* 25 MG PO SCH (07:51)
[2016-10-19] MEDS: Multivitamins/Minerals TAB PO SCH (07:51)
[2016-10-19] MEDS: Potassium Chlor TAB* 20 MEQ TAB.ER PO SCH (07:51)
[2016-10-19 18:44] LABS: Whole Blood Vitamin B1 Level 209 nmol/L (70-180)
[2016-10-19] MEDS: Nicotine Inhaler* 10 MG AMP INH PRN (21:48)
[2016-10-20] MEDS: CMC:Melatonin (NF) 3 MG TAB PO PRN (01:49)
[2016-10-20] MEDS ORDERED: Mouth Piece, Nicotine* 1 EACH CARTRIDGE ONE (02:28)
[2016-10-20] MEDS: Nicotine Inhaler* 10 MG AMP INH PRN (03:05)
[2016-10-20] MEDS: THIAMINE IV SCH ×2 (03:45→12:34)
[2016-10-20] MEDS: NS 0.9% IV SCH ×2 (03:45→12:34)
[2016-10-20] MEDS: Heparin VIAL(*) 5000 UNITS/ML VIAL (FIVE THOUSAND) SUBCUT SCH ×3 (05:30→20:42)
[2016-10-20] MEDS: Magnesium Oxide TAB* 400 MG PO SCH (09:06)
[2016-10-20] MEDS: Famotidine TAB* 20 MG PO SCH (09:07)
[2016-10-20] MEDS: Folic Acid TAB* 1 MG PO SCH (09:07)
[2016-10-20] MEDS: Multivitamins/Minerals TAB PO SCH (09:07)
[2016-10-20] MEDS: Potassium Chlor TAB* 20 MEQ TAB.ER PO SCH (09:07)
[2016-10-20] MEDS: Losartan TAB* 25 MG PO SCH (09:07)
[2016-10-20] MEDS: Carvedilol TAB* 6.25 MG PO SCH ×2 (10:31→20:41)
--- NOTE | 2016-10-20 11:33 | PN ---
Subjective Date of Service: 10/20/16 Interval History: Mr. Brown states that he feels about the same as yesterday. He continues to feel weak but it seems that his right arm is weaker than his left. His lower extremities are stronger. He denies other complaint including chest pain , SOB, nausea, or abdominal pain. Family History: Unchanged from Admission Social History: Unchanged from Admission Past Medical History: Unchanged from Admission Objective Active Medications: Acetaminophen (Tylenol Tab*) 650 mg PO Q4H PRN Calcium Carbonate (Tums*) 1,000 mg PO TID PRN Carvedilol (Coreg Tab*) 12.5 mg PO 0900,2100 SEB Famotidine (Pepcid Tab*) 20 mg PO DAILY SEB Folic Acid (Folvite Tab*) 1 mg PO DAILY SEB Heparin Sodium (Porcine) (Heparin Vial(*)) 5,000 units SUBCUT Q8HR SEB Hydralazine HCl (Apresoline Iv*) 10 mg IV Q4H PRN Thiamine HCl 500 mg/ Sodium (Chloride) 55 mls @ 110 mls/hr IV Q8H SEB Losartan Potassium (Cozaar Tab*) 50 mg PO DAILY SEB Magnesium Oxide (Magox 400 Tab*) 400 mg PO DAILY SEB Melatonin (Melatonin (Nf)) 3 mg PO BEDTIME PRN Multivitamins/Minerals (Theragran/Minerals Tab*) 1 tab PO DAILY SEB Nicotine (Nicotine Inhaler*) 10 mg INH Q2H PRN Ondansetron HCl (Zofran Inj*) 4 mg IV Q6H PRN Potassium Chloride (Klor Con Er Tab*) 20 meq PO DAILY [facility] Vital Signs 10/19/16 10/19/16 10/19/16 16:07 20:00 23:16 Temperature 98.8 F 97.8 F Pulse Rate 45 100 Respiratory 28 19 20 Rate Blood Pressure 136/94 131/95 (mmHg) O2 Sat by Pulse 96 98 Oximetry 10/20/16 10/20/16 10/20/16 01:52 07:17 09:00 Temperature 97.5 F 98.3 F Pulse Rate 87 93 Respiratory 19 17 16 Rate Blood Pressure 156/104 161/119 (mmHg) O2 Sat by Pulse 99 98 Oximetry 10/20/16 10/20/16 11:02 11:23 Temperature 98.3 F Pulse Rate 88 Respiratory 16 17 Rate Blood Pressure 95/72 (mmHg) O2 Sat by Pulse 100 Oximetry Oxygen Devices in Use Now: None Appearance: Male sitting up in chair in chair in NAD Eyes: No Scleral Icterus Ears/Nose/Mouth/Throat: Mucous Membranes Moist Neck: Trachea Midline Respiratory: Symmetrical Chest Expansion and Respiratory Effort, Clear to Auscultation Cardiovascular: NL Sounds; No Murmurs; No JVD, No Edema Abdominal: NL Sounds; No Tenderness; No Distention Lymphatic: No Cervical Adenopathy Extremities: No Edema Skin: No Rash or Ulcers Neurological: Alert and Oriented x 3 - Generalized weakness but it appears that the weakness is worse in the right arm today with inability to lift arm against gravity, - Nutrition: Taking PO's Result Diagrams: 10/18/16 05:28 10/18/16 05:28 Assess/Plan/Problems-Billing Assessment: Mr. Brown is a 61 yo male PMH a fib, alcohol abuse, cardiomyopathy and HTN who was admitted on 10/08/16for alcohol detox but has persistent weakness and confusion with suspected Wernicke's encephalopathy. - Patient Problems (1) Wernicke encephalopathy Comment: - Patient seemed to have worsening weakness today to right arm. Appreciate neuro consult. Suspected perhaps related to history of cervical spine injury, but CT cervical spine negative. ? related to chronic degenerative disease and Wernicke's. MRI brain consistent with Wernicke's. - Continue high dose IV thiamine. 500mg IV TID x 3 days (complete on 10/20/16), then 250mg IV daily x 3 days. (2) Alcohol withdrawal Comment: - Resolved. - But now with Wernicke's Encephalopathy. (3) Alcoholic hepatitis Comment: - Resolved. - Asymptomatic elevation in LFTs, suspect alcoholic hepatitis. (4) Electrolyte abnormality Comment: - K up to 4.2. - Decrease daily potassium supplementation. (5) Hypertension Comment: - SBP 80-140s. - D/c clonidine given that patient's BP is very labile. Continue losartan and carvedilol. (6) Atrial fibrillation Comment: - Rate controlled. - Pt is not anticoagulated at home due to alcoholism and poor functional status. - Continue carvedilol. (7) Thrombocytopenia Comment: - Baseline. - Suspect related to alcohol use. (8) Full code status (9) DVT prophylaxis Comment: SQ heparin. Status and Disposition: Inpatient. Patient will likely need subacute rehab vs NH placement due to weakness and inability to ambulate.
--- NOTE | 2016-10-20 14:19 | RAD ---
INDICATION: Right upper gravity weakness. COMPARISON: Comparison is made with a prior CT of the cervical spine from February 17, 2016. TECHNIQUE: Contiguous axial sections were obtained from the skull base through the T2 vertebra. Images were reconstructed in the sagittal and coronal planes. FINDINGS: The vertebra are in normal alignment. No prevertebral soft tissue swelling or fracture is seen. The patient is status post anterior spinal fusion at the C4-C5 level. There is a metallic plate present anterior to those vertebral transfixed with 2 screws at each level. There is graft material within the intervertebral disc which appears to be partially fused with the adjacent vertebra. At the C3-C4 level there is [id number] posterior uncinate process spurring and hypertrophic changes within the facet joints more prominent on the left side. There appears be mild spinal canal narrowing. There is moderate neural foraminal narrowing on the right side and moderate to severe neural foraminal narrowing on the left side. At the C4-C5 level there is mild posterior uncinate process spurring. Neural foramen appear patent bilaterally. No significant spinal canal narrowing is appreciated. At the C5-C6 level there is mild posterior uncinate process spurring and mild hypertrophic changes within the facet joints. There is mild spinal canal narrowing. There is moderate to severe neural foraminal narrowing on the right side and moderate neural foraminal narrowing on the left side. At the C6-C7 level there is mild posterior uncinate process spurring. No significant spinal canal narrowing is appreciated. There is mild bilateral neural foraminal narrowing. IMPRESSION: 1. STATUS POST ANTERIOR SPINAL FUSION AT THE C4-C5 LEVEL. 2. MODERATE DIFFUSE CERVICAL SPONDYLOSIS DESCRIBED. IF THE PATIENT'S SYMPTOMS PERSIST CONSIDER MR IMAGING FOR FURTHER EVALUATION.
[2016-10-20 15:24] LABS: Albumin 3.6 g/dL (3.2-5.2); BUN/Creatinine Ratio 22.1 (8-20); Calcium 9.4 mg/dL (8.6-10.3); EGFR African American 151.5 (>60); EGFR Non-African American 117.8 (>60); Globulin 3.2 g/dL (2-4); Potassium 4.3 mmol/L (3.5-5.0); Total Bilirubin 0.7 mg/dL (0.2-1.0); Total Protein 6.8 g/dL (6.4-8.9)
--- NOTE | 2016-10-20 22:57 | CONS ---
NEUROLOGY CONSULTATION FOLLOWUP NOTE: DATE OF FOLLOWUP: 10/20/16 LOCATION: He is inpatient, in room 404. HOSPITALIST: Criss Allrde NP. CHIEF COMPLAINT: Alcoholism, Wernicke's encephalopathy. INTERVAL HISTORY: Since yesterday, apparently, Mr. Brown is more lethargic. I have just come o n service, so this is my first time meeting him, but according to the records and speaking with Criss Allred NP, he is more lethargic and his right arm is weaker today. When I speak to him, he is very sleepy, but he does arouse and then cooperates. He says his right arm is weaker than it used to be , but his left arm is weak ever since he had a cervical spine injury. Records from his January hospitalization were reviewed and he had a fractured cervical spine and was transferred to [facility]. He says his left side has been weak since then, but the right side is weaker at this point. MEDICATIONS: Medications are reviewed. He continues on intravenous thiamine 500 mg, with plans to switch to a lower dose and ultimately p.o. He is on subcutaneous heparin 5000 units q.8, folic acid 1 mg p.o. daily, hydralazine p.r.n., losartan 50 mg p.o. daily, magnesium oxide 400 mg p.o. daily, melatonin. PHYSICAL EXAMINATION: He is lethargic. Temperature is 98.3 orally earlier this morning, blood pres sure 95/72, heart rate 88. I checked his blood pressure at the bedside with a manual cuff, and I go t 120/90. Heart seems to be in irregular rhythm and I do not hear murmurs. Neck is supple. Oral m ucosa is moist. He arouses to voice after repetitive trials. Eye movements are full. Pupils react from 4 to 2 mm. Speech is soft and slightly dysarthric. Facial musculature is symmetric. He has bilateral upper extremity weakness, worse on the right. He has worsened right biceps and wri st extensor weakness than triceps and finger flexor weakness. In the left arm he has deltoid and bic eps weakness. There is no spasticity in the legs. He is diffusely weak, but has resistive strength proximally and distally in both legs. He is areflexic at the knees and ankles. Plantars are silen t bilaterally. LABORATORY DATA: Reviewed. Last CBC and chemistries are from 10/18/16, notable for a sodium of 131 . Last liver enzymes from 10/14/16 were AST 43 and ALT 84. Ammonia level on that date was 45. Last magnesium in the record was low at 1.8 on 10/10/16. IMPRESSION: Presumptive Wernicke's encephalopathy. He is apparently more lethargic in the last cou ple of days. We recommend repeating his comprehensive metabolic profile, specifically looking at hi s sodium and liver enzymes. If his liver enzymes have spiked, then I would check an ammonia. I terri l also repeat his magnesium level and make sure that that has been brought up to normal. Given his apparent new right arm weakness, I would recommend CT scan of the cervical spine to make sure he basilio s not have a new fracture. He just had an MRI scan a couple of days ago, which did not reveal an ac himanshu infarction in spite of his chronic atrial fibrillation and lack of anticoagulation. So, I think I would proceed with the recommendations above first, before considering repeat brain imaging. I will discuss my impression with Criss Allred NP. [id number]/[facility] #: [id number]
[2016-10-21] MEDS: Heparin VIAL(*) 5000 UNITS/ML VIAL (FIVE THOUSAND) SUBCUT SCH ×3 (06:08→21:46)
[2016-10-21] MEDS ORDERED: NS 0.9% 1000 ML* 1,000 ML IV SCH (07:30)
[2016-10-21] MEDS: Famotidine TAB* 20 MG PO SCH (08:30)
[2016-10-21] MEDS: Magnesium Oxide TAB* 400 MG PO SCH (08:30)
[2016-10-21] MEDS: Losartan TAB* 25 MG PO SCH (08:30)
[2016-10-21] MEDS: Folic Acid TAB* 1 MG PO SCH (08:30)
[2016-10-21] MEDS: Carvedilol TAB* 6.25 MG PO SCH ×2 (08:30→21:29)
[2016-10-21] MEDS: Multivitamins/Minerals TAB PO SCH (08:30)
[2016-10-21] MEDS: Potassium Chlor TAB* 20 MEQ TAB.ER PO SCH (08:30)
--- NOTE | 2016-10-21 10:47 | PN ---
Subjective Date of Service: 10/21/16 Interval History: Mr. Brown states that he is feeling about the same today. He continues to feel weak and tired but denies other complaint including chest pain, SOB, nausea , or abdominal pain. Family History: Unchanged from Admission Social History: Unchanged from Admission Past Medical History: Unchanged from Admission Objective Active Medications: Acetaminophen (Tylenol Tab*) 650 mg PO Q4H PRN Calcium Carbonate (Tums*) 1,000 mg PO TID PRN Carvedilol (Coreg Tab*) 12.5 mg PO 0900,2100 SEB Famotidine (Pepcid Tab*) 20 mg PO DAILY SEB Folic Acid (Folvite Tab*) 1 mg PO DAILY SEB Heparin Sodium (Porcine) (Heparin Vial(*)) 5,000 units SUBCUT Q8HR SEB Hydralazine HCl (Apresoline Iv*) 10 mg IV Q4H PRN Sodium Chloride (Ns 0.9% 1000 Ml*) 1,000 mls @ 100 mls/hr IV PER RATE SEB Losartan Potassium (Cozaar Tab*) 50 mg PO DAILY SEB Magnesium Oxide (Magox 400 Tab*) 400 mg PO DAILY SEB Melatonin (Melatonin (Nf)) 3 mg PO BEDTIME PRN Multivitamins/Minerals (Theragran/Minerals Tab*) 1 tab PO DAILY SEB Nicotine (Nicotine Inhaler*) 10 mg INH Q2H PRN Ondansetron HCl (Zofran Inj*) 4 mg IV Q6H PRN Potassium Chloride (Klor Con Er Tab*) 20 meq PO DAILY [facility] Vital Signs 10/20/16 10/20/16 10/20/16 11:02 11:23 13:53 Temperature 98.3 F Pulse Rate 88 Respiratory 16 17 Rate Blood Pressure 95/72 152/88 (mmHg) O2 Sat by Pulse 100 Oximetry 10/20/16 10/20/16 10/20/16 15:29 19:18 20:00 Temperature 98.4 F 98.1 F Pulse Rate 96 94 Respiratory 17 15 16 Rate Blood Pressure 160/106 122/100 (mmHg) O2 Sat by Pulse 98 98 Oximetry 10/21/16 10/21/16 10/21/16 01:11 04:07 04:09 Temperature 97.9 F 97.9 F Pulse Rate 80 102 Respiratory 16 16 Rate Blood Pressure 146/108 159/105 (mmHg) O2 Sat by Pulse 100 100 Oximetry 10/21/16 10/21/16 10/21/16 04:27 06:57 10:35 Temperature 98.0 F Pulse Rate 88 85 Respiratory 16 16 Rate Blood Pressure 150/104 152/112 (mmHg) O2 Sat by Pulse 100 Oximetry Oxygen Devices in Use Now: None Appearance: Male lying in bed in NAD Eyes: No Scleral Icterus Ears/Nose/Mouth/Throat: Mucous Membranes Moist Neck: Trachea Midline Respiratory: Symmetrical Chest Expansion and Respiratory Effort, Clear to Auscultation Cardiovascular: NL Sounds; No Murmurs; No JVD, No Edema Abdominal: NL Sounds; No Tenderness; No Distention Lymphatic: No Cervical Adenopathy Extremities: No Edema Skin: No Rash or Ulcers Neurological: Alert and Oriented x 3, - - Patient more coherent and awake today but remains weak. R UE +2 strength, L UE +3. B LEs +5. Nutrition: Taking PO's Result Diagrams: 10/18/16 05:28 10/21/16 12:12 Assess/Plan/Problems-Billing Assessment: Mr. Brown is a 61 yo male PMH a fib, alcohol abuse, cardiomyopathy and HTN who was admitted on 10/08/16for alcohol detox but has persistent weakness and confusion with suspected Wernicke's encephalopathy. - Patient Problems (1) Wernicke encephalopathy Comment: - Patient more alert and oriented today but weakness is unchanged. Appreciate neuro consult. Suspected weakness could be related to history of cervical spine injury, but CT cervical spine negative. Will check MRI cervical spine tomorrow. - Continue to suspect chronic degenerative disease and Wernicke's. MRI brain consistent with Wernicke's. - Continue high dose IV thiamine. 500mg IV TID x 3 days (completed), then 250mg IV daily x 3 days (started 10/21/16). (2) Hyponatremia Comment: - Na down to 129 today, low serum osmolality. - Suspected related to poor oral intake, but Na fell to 128 after NS infusion. - Check urine sodium and osm, will need straight cath. - Now suspecting SIADH, will institute fluid restriction until urine studies are back. No abnormality of chest xray at admission or MRI brain to suspect malignancy. Though MRI grossly abnormal with diffuse changes. (3) Alcohol withdrawal Comment: - Resolved. - But now with Wernicke's Encephalopathy. (4) Alcoholic hepatitis Comment: - Resolved. - Asymptomatic elevation in LFTs, suspect alcoholic hepatitis. (5) Hypertension Comment: - SBP 80-140s. - D/c clonidine given that patient's BP is very labile. Continue losartan and carvedilol. (6) Atrial fibrillation Comment: - Rate controlled. - Pt is not anticoagulated at home due to alcoholism and poor functional status. - Continue carvedilol. (7) Thrombocytopenia Comment: - Baseline. - Suspect related to alcohol use. (8) Full code status (9) DVT prophylaxis Comment: SQ heparin. Status and Disposition: Inpatient. Patient will likely need subacute rehab vs NH placement due to weakness and inability to ambulate.
[2016-10-21] MEDS ORDERED: Thiamine IV* 100 MG/ML 2 ML VIAL IV SCH (11:00)
[2016-10-21] MEDS: THIAMINE IV SCH (12:05)
[2016-10-21] MEDS: NS 0.9% IV SCH (12:05)
[2016-10-21 12:31] LABS: Calcium 9.1 mg/dL (8.6-10.3); EGFR African American 151.5 (>60); EGFR Non-African American 117.8 (>60); Potassium 4.4 mmol/L (3.5-5.0)
[2016-10-21 14:51] LABS: Urine Random Potassium 77.2 mmol/L
[2016-10-21] MEDS: Nicotine Inhaler* 10 MG AMP INH PRN (21:30)
[2016-10-22] MEDS ORDERED: Mouth Piece, Nicotine* 1 EACH CARTRIDGE ONE (04:51)
[2016-10-22] MEDS: Nicotine Inhaler* 10 MG AMP INH PRN ×3 (04:52→20:50)
[2016-10-22] MEDS: Heparin VIAL(*) 5000 UNITS/ML VIAL (FIVE THOUSAND) SUBCUT SCH ×3 (06:00→21:15)
[2016-10-22] MEDS: Acetaminophen TAB* 325 MG PO PRN (06:05)
[2016-10-22 08:06] LABS: Calcium 9.5 mg/dL (8.6-10.3); EGFR African American 144.1 (>60); EGFR Non-African American 112.1 (>60); Potassium 4.3 mmol/L (3.5-5.0)
[2016-10-22] MEDS ORDERED: Thiamine IV* 100 MG, Folic Acid IV* 1 MG, Multiple Vitamin IV ADULT* 10 ML in NS 0.9% 1... IV ONE (08:20)
[2016-10-22] MEDS ORDERED: Sodium Chloride TAB* 1 GM PO SCH (09:00)
--- NOTE | 2016-10-22 09:24 | RAD ---
HISTORY: Shortness of breath COMPARISONS: October 08, 2016 VIEWS:1: Single frontal portable view of the chest at 9:00 AM FINDINGS: LINES AND TUBES: None. CARDIOMEDIASTINAL SILHOUETTE: The cardiomediastinal silhouette is normal for portable technique. PLEURA: There is a small left pleural effusion LUNG PARENCHYMA: There is confluent alveolar opacification of left lung base ABDOMEN: The upper abdomen is clear. There is no subphrenic gas. BONES AND SOFT TISSUES: No bone or soft tissue abnormalities are noted. IMPRESSION: SMALL LEFT PLEURAL EFFUSION WITH LEFT BASILAR CONSOLIDATION. RECOMMEND FOLLOW-UP UNTIL RESOLUTION TO EXCLUDE UNDERLYING PULMONARY PARENCHYMAL PATHOLOGY
[2016-10-22] MEDS: NS 0.9% IV SCH (10:09)
[2016-10-22] MEDS: THIAMINE IV SCH (10:09)
[2016-10-22] MEDS: Multivitamins/Minerals TAB PO SCH (10:10)
[2016-10-22] MEDS: Losartan TAB* 25 MG PO SCH (10:10)
[2016-10-22] MEDS: Magnesium Oxide TAB* 400 MG PO SCH (10:10)
[2016-10-22] MEDS: Potassium Chlor TAB* 20 MEQ TAB.ER PO SCH (10:10)
[2016-10-22] MEDS: Carvedilol TAB* 6.25 MG PO SCH ×2 (10:10→20:50)
[2016-10-22] MEDS: Folic Acid TAB* 1 MG PO SCH (10:10)
[2016-10-22] MEDS: Famotidine TAB* 20 MG PO SCH (10:10)
--- NOTE | 2016-10-22 10:25 | PN ---
Subjective Date of Service: 10/22/16 Interval History: Mr. Brown denies complaint today. He does have weakness generally but he feels that he is at baseline. He denies chest pain, SOB, nausea, or abdominal pain. Family History: Unchanged from Admission Social History: Unchanged from Admission Past Medical History: Unchanged from Admission Objective Active Medications: Acetaminophen (Tylenol Tab*) 650 mg PO Q4H PRN Calcium Carbonate (Tums*) 1,000 mg PO TID PRN Carvedilol (Coreg Tab*) 12.5 mg PO 0900,2100 SEB Famotidine (Pepcid Tab*) 20 mg PO DAILY SEB Folic Acid (Folvite Tab*) 1 mg PO DAILY SEB Heparin Sodium (Porcine) (Heparin Vial(*)) 5,000 units SUBCUT Q8HR SEB Hydralazine HCl (Apresoline Iv*) 10 mg IV Q4H PRN Thiamine HCl 250 mg/ Sodium (Chloride) 52.5 mls @ 105 mls/hr IV DAILY SEB Thiamine HCl 100 mg/ Folic Acid 1 mg/ Multivitamins 10 ml / Sodium Chloride 1, 011.2 mls @ 75 mls/hr IV ED ONCE ONE Levofloxacin/Dextrose (Levaquin 750 Mg Ivpremix(*)) 750 mg in 150 mls @ 100 mls /hr IVPB Q24H SEB Losartan Potassium (Cozaar Tab*) 50 mg PO DAILY SEB Magnesium Oxide (Magox 400 Tab*) 400 mg PO DAILY SEB Melatonin (Melatonin (Nf)) 3 mg PO BEDTIME PRN Multivitamins/Minerals (Theragran/Minerals Tab*) 1 tab PO DAILY SEB Nicotine (Nicotine Inhaler*) 10 mg INH Q2H PRN Ondansetron HCl (Zofran Inj*) 4 mg IV Q6H PRN Potassium Chloride (Klor Con Er Tab*) 20 meq PO DAILY SEB Sodium Chloride (Sodium Chloride Tab*) 1 gm PO DAILY SEB Vital Signs 10/21/16 10/21/16 10/21/16 10:35 11:27 16:17 Temperature 98.7 F 98.6 F Pulse Rate 86 96 Respiratory 16 15 24 Rate Blood Pressure 106/78 89/67 (mmHg) O2 Sat by Pulse 100 97 Oximetry 10/21/16 10/21/16 10/21/16 19:51 20:00 23:45 Temperature 98.2 F 100.2 F Pulse Rate 94 101 Respiratory 28 20 20 Rate Blood Pressure 86/66 93/58 (mmHg) O2 Sat by Pulse 96 91 Oximetry 10/22/16 04:16 Temperature 98.2 F Pulse Rate 108 Respiratory 20 Rate Blood Pressure 128/93 (mmHg) O2 Sat by Pulse 99 Oximetry Oxygen Devices in Use Now: None Result Diagrams: 10/18/16 05:28 10/22/16 07:30 Assess/Plan/Problems-Billing Assessment: Mr. Brown is a 61 yo male PMH a fib, alcohol abuse, cardiomyopathy and HTN who was admitted on 10/08/16for alcohol detox but has persistent weakness and confusion with suspected Wernicke's encephalopathy. - Patient Problems (1) Wernicke encephalopathy Comment: - Patient more alert and oriented today but weakness is unchanged. Appreciate neuro consult. Suspected weakness could be related to history of cervical spine injury, but CT cervical spine negative. Will check MRI cervical spine tomorrow. - Continue to suspect chronic degenerative disease and Wernicke's. MRI brain consistent with Wernicke's. - Continue high dose IV thiamine. 500mg IV TID x 3 days (completed), then 250mg IV daily x 3 days (started 10/21/16). (2) Hypoxia Comment: - On 4L NC and rhoncherous, chest xray with concern for pneumonia with pleural effusion. Check CBC and CRP. - Start levaquin. - ? Aspiration with generalized weakness, speech eval pending. (3) Hyponatremia Comment: - Na down to 128 today, low serum osmolality, urine Na 100. - Will institute fluid restriction and sodium chloride tabs. No abnormality of chest xray at admission or MRI brain to suspect malignancy. Though MRI grossly abnormal with diffuse changes. (4) Alcohol withdrawal Comment: - Resolved. - But now with Wernicke's Encephalopathy. (5) Alcoholic hepatitis Comment: - Resolved. - Asymptomatic elevation in LFTs, suspect alcoholic hepatitis. (6) Hypertension Comment: - SBP 80-140s. - D/c clonidine given that patient's BP is very labile. Continue losartan and carvedilol. (7) Atrial fibrillation Comment: - Rate controlled. - Pt is not anticoagulated at home due to alcoholism and poor functional status. - Continue carvedilol. (8) Thrombocytopenia Comment: - Baseline. - Suspect related to alcohol use. (9) Full code status (10) DVT prophylaxis Comment: SQ heparin. Status and Disposition: Inpatient. Patient will likely need subacute rehab vs NH placement due to weakness and inability to ambulate.
[2016-10-22 11:57] LABS: C Reactive Protein 13.33 mg/L (< 5.00)
[2016-10-22 12:07] LABS: Hematocrit 43 % (42-52); Hemoglobin 14.3 g/dl (14.0-18.0); Mean Corpuscular HGB Conc 34 g/dl (31-36); Mean Corpuscular Hemoglobin 34 pg (27-31); Mean Corpuscular Volume 102 fL (80-94); Mean Platelet Volume 10 um3 (7.4-10.4); Red Blood Count 4.19 10^6/ul (4.0-5.4); Red Cell Distribution Width 14 % (10.5-15); White Blood Count 13.1 10^3/ul (3.5-10.8)
[2016-10-22] MEDS: Levofloxacin 750 MG IVPREMIX(* 750 MG/150 ML BAG IVPB SCH (12:10)
[2016-10-22 12:13] LABS: Add Diff/Slide Review? Slide Review Added; Comments Flag Yes
--- NOTE | 2016-10-22 16:18 | RAD ---
INDICATION: Right arm weakness. COMPARISON: Comparison is made with a prior CT of the cervical spine from October 20, 2016. TECHNIQUE: Axial T2 and sagittal T1 and T2 and coronal T2-weighted images of the cervical spine were obtained. FINDINGS: The vertebra are in normal alignment. The patient is status post anterior spinal fusion at the C4-C5 level. There is metallic hardware present which limits the examination slightly at those levels. The craniocervical junction is within normal limits. The spinal cord is normal in shape and signal intensity. At the C3-C4 level there is posterior uncinate process spurring associated with a mild broad-based disc bulge which causes mild spinal canal narrowing. There appears to be moderate bilateral neural foraminal narrowing. At the C4-C5 level the patient is status post anterior spinal fusion. There is mild spinal canal narrowing. No significant neural foraminal narrowing is seen. At the C5-C6 level there is posterior uncinate process spurring associated with a mild broad-based disc bulge. This causes moderate spinal canal narrowing and moderate bilateral neural foraminal narrowing. At the C6-C7 level there is mild posterior uncinate process spurring associated with a mild broad-based disc bulge. There is mild spinal canal narrowing and mild bilateral neural foraminal narrowing. IMPRESSION: 1. STATUS POST ANTERIOR SPINAL FUSION AT THE C4-C5 LEVEL. 2. MODERATE DIFFUSE CERVICAL SPONDYLOSIS DESCRIBED WITH CHANGES MOST PROMINENT AT THE C5-C6 LEVEL.
[2016-10-22] MEDS: Sodium Chloride TAB* 1 GM PO SCH (21:04)
[2016-10-22] MEDS: CMC:Melatonin (NF) 3 MG TAB PO PRN (21:07)
--- NOTE | 2016-10-22 22:29 | CONS ---
NEUROLOGY FOLLOWUP NOTE: DATE OF FOLLOWUP: 10/22/16 LOCATION: He is inpatient, in room 404. HOSPITALIST: Criss Allred NP. CHIEF COMPLAINT: Weakness, encephalopathy. INTERVAL HISTORY: Since yesterday, Bal was diagnosed with pneumonia. He has had a fever of 100 degrees and a chest x-ray from earlier today reveals consolidation in the left lower lobe and some pleural fluid. He is now on ciprofloxacin. He is awake and fairly alert. His voice is very soft and at times he is hard to hear. He also remains forgetful. He tells me he has worse weakness in his left arm compared to the past whereas previously he said his right was worse. MEDICATIONS: Medications are reviewed and he is on: 1. Coreg 12.5 mg p.o. b.i.d. 2. Famotidine 20 mg p.o. daily. 3. Folic acid 1 mg p.o. daily. 4. Heparin 5000 units subcutaneous q.8 hours. 5. Hydralazine p.r.n. 6. Levaquin 750 mg IV q.24 hours. 7. Losartan 50 mg p.o. daily. 8. Magnesium 400 mg p.o. daily. 9. Multivitamins. 10. Thiamine 250 mg IV once per day. He also has a banana bag hanging. PHYSICAL EXAMINATION: He is initially asleep, but wakes to soft voice. Most recent temperature is 97.8 orally, blood pressure just 90/71, heart rate is 80 and regular. Neurologically, eye movements are full without nystagmus. Facial musculature symmetric. Voice is very soft. On motor exam, there is no spasticity in the limbs. He has grade 4- right biceps, deltoid, and grade 4+ finger flexor weakness. He has pretty good wrist extension and triceps strength on the right. 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 Strength in the left hand is otherwise pretty good. He has antigravity strength in both legs. He is a poor historian. He loses his train of thought easily. IMPRESSION: Impression is that of a Wernicke's encephalopathy, which is resolving, but that will leave him with a memory deficit. It may improve over the time, but I would expect a slow and very likely complete recovery. He also has pneumonia currently. I think he probably has a right C6 radiculopathy and I am not sure how long it has been there. He has an MRI of the cervical spine pending from today. I do not have any other recommendations at this point in time, but we will follow up after the MRI is done. [id number]/[facility] #: [id number] CARLY
[2016-10-23] MEDS: Heparin VIAL(*) 5000 UNITS/ML VIAL (FIVE THOUSAND) SUBCUT SCH ×3 (05:21→20:56)
[2016-10-23 05:44] LABS: BUN/Creatinine Ratio 18.8 (8-20); Calcium 8.9 mg/dL (8.6-10.3); EGFR African American 148.9 (>60); EGFR Non-African American 115.8 (>60); Potassium 4.4 mmol/L (3.5-5.0)
[2016-10-23] MEDS ORDERED: Albuterol/Ipratropium NEB.SOL* Albuterol 2.5 MG/Ipratropium 0.5 MG 3 ML INH ONE (08:59)
[2016-10-23] MEDS ORDERED: Albuterol 2.5 MG/3 ML NEB.SOL* (0.083%) INH PRN (08:59)
[2016-10-23] MEDS ORDERED: Tiotropium CAP.INH* CAP.INH/18 MCG INH SCH (09:00)
--- NOTE | 2016-10-23 09:02 | PN ---
Subjective Date of Service: 10/23/16 Interval History: Patient seen and examined at bedside. Mr. Brown is visibly tachypneic and difficult to understand due to soft speech. He states he felt like the oxygen was helping yesterday but not as much today. He denies any wheezing but feels tightness across his chest with inspiration. He states "it's not pain but just gets tight." He denies cough. He feels his left arm is "about the same" and reports some back pain. Family History: Unchanged from Admission Social History: Unchanged from Admission Past Medical History: Unchanged from Admission Objective Active Medications: Acetaminophen (Tylenol Tab*) 650 mg PO Q4H PRN PRN Reason: PAIN Last Admin: 10/22/16 06:05 Dose: 650 mg Calcium Carbonate (Tums*) 1,000 mg PO TID PRN PRN Reason: HEARTBURN Last Admin: 10/14/16 03:29 Dose: 1,000 mg Carvedilol (Coreg Tab*) 12.5 mg PO 0900,2100 [facility] Last Admin: 10/22/16 20:50 Dose: 12.5 mg Famotidine (Pepcid Tab*) 20 mg PO DAILY [facility] Last Admin: 10/22/16 10:10 Dose: 20 mg Folic Acid (Folvite Tab*) 1 mg PO DAILY [facility] Last Admin: 10/22/16 10:10 Dose: 1 mg Heparin Sodium (Porcine) (Heparin Vial(*)) 5,000 units SUBCUT Q8HR [facility] Last Admin: 10/23/16 05:21 Dose: 5,000 units Hydralazine HCl (Apresoline Iv*) 10 mg IV Q4H PRN PRN Reason: Systolic >170 Last Admin: 10/17/16 06:04 Dose: 10 mg Thiamine HCl 250 mg/ Sodium (Chloride) 52.5 mls @ 105 mls/hr IV DAILY [facility] Stop: 10/23/16 09:29 Last Admin: 10/22/16 10:09 Dose: 105 mls/hr Levofloxacin/Dextrose (Levaquin 750 Mg Ivpremix(*)) 750 mg in 150 mls @ 100 mls /hr IVPB Q24H [facility] Last Admin: 10/22/16 12:10 Dose: 100 mls/hr Losartan Potassium (Cozaar Tab*) 50 mg PO DAILY [facility] Last Admin: 10/22/16 10:10 Dose: 50 mg Magnesium Oxide (Magox 400 Tab*) 400 mg PO DAILY [facility] Last Admin: 10/22/16 10:10 Dose: 400 mg Melatonin (Melatonin (Nf)) 3 mg PO BEDTIME PRN PRN Reason: SLEEP Last Admin: 10/22/16 21:07 Dose: 3 mg Multivitamins/Minerals (Theragran/Minerals Tab*) 1 tab PO DAILY [facility] Last Admin: 10/22/16 10:10 Dose: 1 tab Nicotine (Nicotine Inhaler*) 10 mg INH Q2H PRN PRN Reason: CRAVINGS Last Admin: 10/22/16 20:50 Dose: 10 mg Ondansetron HCl (Zofran Inj*) 4 mg IV Q6H PRN PRN Reason: NAUSEA Last Admin: 10/17/16 08:31 Dose: 4 mg Potassium Chloride (Klor Con Er Tab*) 20 meq PO DAILY [facility] Last Admin: 10/22/16 10:10 Dose: 20 meq Sodium Chloride (Sodium Chloride Tab*) 1 gm PO BID [facility] Last Admin: 10/22/16 21:04 Dose: 1 gm Vital Signs 10/22/16 10/22/16 10/22/16 11:51 16:34 19:50 Temperature 97.8 F 98.8 F 98.4 F Pulse Rate 103 100 116 Respiratory 28 32 32 Rate Blood Pressure 90/71 109/72 129/81 (mmHg) O2 Sat by Pulse 95 94 90 Oximetry 10/22/16 10/22/16 10/23/16 20:00 23:28 03:40 Temperature 98.7 F 99.7 F Pulse Rate 99 102 Respiratory 36 16 36 Rate Blood Pressure 131/85 111/87 (mmHg) O2 Sat by Pulse 95 94 Oximetry 10/23/16 07:38 Temperature 99.1 F Pulse Rate 108 Respiratory 30 Rate Blood Pressure 136/82 (mmHg) O2 Sat by Pulse 90 Oximetry Oxygen Devices in Use Now: Nasal Cannula - 10Lnc Appearance: Ill appearing male patient, tachypneic, diaphoretic. Unable to speak in complete sentences Eyes: No Scleral Icterus Ears/Nose/Mouth/Throat: Clear Oropharnyx Neck: NL Appearance and Movements; NL JVP Respiratory: Symmetrical Chest Expansion and Respiratory Effort, - - lung sounds tight anteriorly, rhonchi heard throughout all lung elliott, crackles to left base Cardiovascular: - - irregular rate/rhythm Abdominal: NL Sounds; No Tenderness; No Distention Extremities: No Edema Neurological: - - Alert, difficult to determine orientation due to poor vocalization and difficulty speaking Lines/Tubes/Other Access: Clean, Dry and Intact Peripheral IV Result Diagrams: 10/22/16 07:30 10/23/16 04:57 Microbiology and Other Data: Microbiology 10/22/16 16:30 Legionella Urinary Antigen - Final Urine Negative Legionella Streptococcus pneumoniae Ag Screen - Final Negative S. pneumo Antigen Assess/Plan/Problems-Billing Assessment: Mr. Brown is a 61 yo male PMH a fib, alcohol abuse, cardiomyopathy and HTN who was admitted on 10/08/16 for alcohol detox but has persistent weakness and confusion with suspected Wernicke's encephalopathy. - Patient Problems (1) Pneumonia Code(s): J18.9 - PNEUMONIA, UNSPECIFIED ORGANISM Comment: LLL infiltrate with left pleural effusion noted on 10/22 CXR Patient visibly tachypneic and with continued hypoxia despite escalating O2 therapy Recheck CXR, obtain ABG Add IS, guaifenesin, albuterol tx Suspect patient will need high flow O2 Still with suspicion for aspiration component; will add clindamycin to levofloxacin. (2) Wernicke encephalopathy Code(s): E51.2 - WERNICKE'S ENCEPHALOPATHY Comment: Patient more alert and oriented today but weakness is unchanged. Appreciate neuro consult. MRI cervical spine shows cervical spondylosis with changes most prominent at C5- C6. MRI brain from 10/17 consistent with Wernicke's. Continue high dose IV thiamine - 500mg IV TID x 3 days (completed), then 250mg IV daily x 3 days (started 10/21/16). (3) Hyponatremia Code(s): E87.1 - HYPO-OSMOLALITY AND HYPONATREMIA Comment: Suspect SIADH Na 127 today Low serum osmolality, urine Na 100. Continue fluid restriction and sodium chloride tabs. Likely exacerbated with pneumonia No abnormality of chest xray at admission or MRI brain to suspect malignancy ( though MRI grossly abnormal with diffuse changes). (4) Alcohol withdrawal Code(s): F10.239 - ALCOHOL DEPENDENCE WITH WITHDRAWAL, UNSPECIFIED Comment: Resolved. Continue IV thiamine for Wernicke's encephalopathy. (5) Alcoholic hepatitis Code(s): K70.10 - ALCOHOLIC HEPATITIS WITHOUT ASCITES Comment: Resolved. Asymptomatic elevation in LFTs, suspect alcoholic hepatitis. (6) Hypertension Code(s): I10 - ESSENTIAL (PRIMARY) HYPERTENSION Comment: Blood pressure very labile, SBP 80-140s. Continue losartan and carvedilol. (7) Atrial fibrillation Code(s): I48.91 - UNSPECIFIED ATRIAL FIBRILLATION Comment: Rate controlled. Pt is not anticoagulated at home due to alcoholism and poor functional status. Continue carvedilol. (8) Thrombocytopenia Code(s): D69.6 - THROMBOCYTOPENIA, UNSPECIFIED Comment: Resolved. Suspect related to alcohol use. (9) DVT prophylaxis Comment: SQ heparin (10) Full code status Code(s): Z78.9 - OTHER SPECIFIED HEALTH STATUS Status and Disposition: Inpatient. Continued LOS secondary to multiple acute illnesses and need for inpatient treatment. Patient will likely need subacute rehab vs NH placement due to weakness and inability to ambulate.
[2016-10-23 09:39] LABS: FIO2 10
[2016-10-23 09:42] LABS: PCO2 Arterial 43 mmHg (35-45)
[2016-10-23] MEDS: Carvedilol TAB* 6.25 MG PO SCH ×2 (09:42→20:56)
[2016-10-23] MEDS: Folic Acid TAB* 1 MG PO SCH (09:42)
[2016-10-23] MEDS: Magnesium Oxide TAB* 400 MG PO SCH (09:42)
[2016-10-23] MEDS: Multivitamins/Minerals TAB PO SCH (09:42)
[2016-10-23] MEDS: Losartan TAB* 25 MG PO SCH (09:42)
[2016-10-23] MEDS: Famotidine TAB* 20 MG PO SCH (09:42)
[2016-10-23] MEDS: Sodium Chloride TAB* 1 GM PO SCH ×2 (09:43→20:55)
[2016-10-23] MEDS: guaiFENesin ER TAB 600 MG PO SCH ×2 (09:43→20:56)
[2016-10-23] MEDS: Potassium Chlor TAB* 20 MEQ TAB.ER PO SCH (09:43)
--- NOTE | 2016-10-23 09:48 | PN ---
Hospitalist Progress Note HOSPITALIST ADDENDUM Case reviewed and d/w Shilpa Davis FIELD EDUCATION COORDINATOR. Mr. Brown is a 61yo M with PMH of alcoholism, Afib, HTN, admitted for alcohol detox, with persistent confusion, found to have Wernicke's encephalopathy (findings suggestive of on his MRI brain). Neurology felt his weakness was associated with right C6 radiculopathy and MRI cervical spine cervical spondylosis more pronounced at C5-C6 level. He developed low grade fever and CxR showed LLL consolidation. Started on Levofloxacin yesterday, but this AM he was found to be more tachypneic, has higher supplemental O2 requirements. Decision is made to transfer to ICU for vapotherm to decrease his work of breathing. Selected Entries 10/23/16 10/23/16 07:38 09:31 Temperature 99.1 F Pulse Rate 108 Respiratory 30 Rate Blood Pressure 136/82 (mmHg) O2 Sat by Pulse 90 Oximetry Oxygen Flow 10 Rate CVS: normal S1 and S2, irregular. Chest: BS+ bilaterally coarse, with crackles on left base. CxR: LLL consolidation, but appears to have more loss of volume, suggestive of atelectasis or mucus plug (not officially read yet). A/P: Acute hypoxemic respiratory failure / Pneumonia (HCAP vs Aspiration) / Sepsis - Transfer to ICU for Vapotherm and further respiratory support. - Add Clindamycin (patient is PCN allergic). - Consult Dr. Juárez.
--- NOTE | 2016-10-23 09:49 | RAD ---
HISTORY: Hypoxia, pneumonia COMPARISONS: October 22, 2016 VIEWS:1: Single frontal portable view of the chest at 9:17 AM FINDINGS: LINES AND TUBES: None. CARDIOMEDIASTINAL SILHOUETTE: The cardiomediastinal silhouette is normal for portable technique. PLEURA: There is blunting of the left costophrenic angle. LUNG PARENCHYMA: There is hyperinflation. There is persistent confluent alveolar opacification of the left lung base. ABDOMEN: The upper abdomen is clear. There is no subphrenic gas. BONES AND SOFT TISSUES: No bone or soft tissue abnormalities are noted. IMPRESSION: PERSISTENT SMALL LEFT PLEURAL EFFUSION WITH LEFT BASILAR CONSOLIDATION
[2016-10-23] MEDS ORDERED: Clindamycin 600 MG IVPREMIX(* 600 MG/50 ML SDV IV SCH (10:00)
[2016-10-23] MEDS ORDERED: Spiriva Inhaler DEVICE* 1 EACH DEVICE SCH (10:00)
[2016-10-23] MEDS: Mometasone/Formoter 200/5 MDI INH SCH ×2 (10:08→20:06)
[2016-10-23] MEDS: NS 0.9% IV SCH (10:21)
[2016-10-23] MEDS: THIAMINE IV SCH (10:21)
[2016-10-23] MEDS ORDERED: Mouth Piece, Nicotine* 1 EACH CARTRIDGE ONE (10:49)
[2016-10-23] MEDS: Levofloxacin 750 MG IVPREMIX(* 750 MG/150 ML BAG IVPB SCH (12:44)
[2016-10-23] MEDS: Cefepime(*) 2 GM in NS 0.9% 50 ML* 50 ML IVPB SCH (13:34)
[2016-10-23] MEDS: Nicotine Inhaler* 10 MG AMP INH PRN ×2 (14:44→18:12)
[2016-10-23] MEDS: ALPRAZolam TAB* 0.25 MG PO PRN ×2 (16:00→20:43)
--- NOTE | 2016-10-23 18:53 | CONS ---
CRITICAL CARE CONSULT: DATE OF CONSULT: 10/23/16 REASON FOR CONSULT: Respiratory insufficiency. HISTORY OF PRESENT ILLNESS: This patient is a 61-year-old white male who has been hospitalized since 10/08/16 and has the following medical problems: 1. Alcohol withdrawal (resolved). 2. Possible Wernicke's encephalopathy by MRI. 3. C6 radiculopathy with right arm pain and weakness. 4. Healthcare-associated pneumonia involving the left lung. The patient came to the intensive care unit today because of increasing respiratory insufficiency and hypoxic respiratory failure. The presumptive diagnosis is pneumonia involving the base of the left lung. MEDICATIONS: 1. Albuterol inhaler. 2. Carvedilol 12.5 mg twice daily. 3. Famotidine 20 mg p.o. daily. 4. Heparin 5000 units subcu q.8 hours. 5. Losartan 50 mg daily. 6. Levofloxacin 500 mg IV daily. 7. MultiVits 1 tab daily. 8. Spiriva inhaler 1 inhalation daily. PHYSICAL EXAM: General: The patient was in mild respiratory distress, but could complete sentences. Vital Signs: Temp 98.2, heart rate 100 and regular, respirations 28, O2 sat was 94% on 100% oxygen by NC at 40 L per minute, blood pressure was 78/58. HEENT: There was no ophthalmoplegia. Corneal and pupillary light reflexes were intact. There is no facial asymmetry. Lungs: There were occasional rhonchi and crackles at the left base. Cardiac Exam: No murmurs, rubs, or gallops. Abdomen was nontender. Extremities were warm, not cyanotic, and nonedematous. There was limited movement of right arm. DIAGNOSTIC STUDIES/LAB DATA: White count was 13.1 (up from 6.5 on 10/18/16), hemoglobin 14.3, platelets 355K. Electrolytes were normal except for sodium of 127, chloride of 95. Chest x-ray showed a consolidation at the left base. MRI of the brain on 10/17/16 revealed nonspecific changes of encephalopathy, but there was an increased FLAIR signal in the thalami bilaterally that is consistent with Wernicke's encephalopathy. IMPRESSION: 1. Progressive healthcare-associated pneumonia with respiratory insufficiency. No pathogen isolated at this time. 2. Hyponatremia - ?SIADH 3. ? Wernicke's encephalopathy (Dx by MRI - no clinical signs of such). 4. C6 radiculopathy with right arm pain/weakness. MANAGEMENT PLAN: 1. Will discontinue levofloxacin and add cefepime for better coverage of possible pathogens in nosocomial pneumonia. 2. High-flow nasal O2 for oxygenation 3. Continue thiamine Rx (100 mg daily). 4. w/u SIADH with urine sodium and osmolality (results pending). 5. Neurology input regarding the right arm weakness. CRITICAL CARE TIME: 60 minutes (not including phone conversation with patient' s ). [id number]/[facility] #: [id number] [facility]
[2016-10-23] MEDS: CMC:Melatonin (NF) 3 MG TAB PO PRN (20:55)
--- NOTE | 2016-10-23 21:14 | CONS ---
NEUROLOGY FOLLOWUP NOTE: DATE OF FOLLOWUP: 10/23/16 NEUROINTENSIVIST: Rory Juárez MD. LOCATION: He is in ICU bed 7. INTERVAL HISTORY: Since yesterday, Mr. Brown's breathing deteriorated and he was transferred to the intensive care unit. He has pneumonia and is being treated for that. He had a pretty low oxygen this morning with a blood gas, but he is breathing more comfortably now this afternoon as I evaluate him. He is a little more lucid today and he describes the right arm weakness as being new. He states he has had chronic left arm weakness since his fractured cervical spine and surgery. He states the right arm weakness is new apparently this hospitalization, although it is not clear to me if it might have started even before this hospitalization. He specifically states that he was generally weak and he would do even a little bit of yard work and then he would have no energy whatsoever. He states he has diffuse aching in his limbs, but no pain specifically is his arms. He states he has neck pain, but it sounds like that is chronic. He denies difficulty swallowing. PHYSICAL EXAMINATION: Most recent temperature 98.2; blood pressure is low, running around 80 to 100 systolic over 60 to 70 diastolic; respiratory rate is in the 30s. Last oxygen saturation recorded is 93% on supplemental oxygen. Neurologically, eye movements are full. Facial musculature is symmetric. There is no spasticity in the limbs. He has mild hip flexor weakness bilaterally. He has grade 4 ankle dorsiflexor weakness bilaterally. In the upper extremities, he has barely antigravity biceps weakness and grade 2 right deltoid weakness. He has pretty good triceps strength, at least grade 4. Wrist extensors grade 4, but finger extensors are grade 3. Finger flexors are about grade 4. In the left hand, he has lessened antigravity wrist extensor weakness and triceps weakness, but pretty good biceps strength on the left. He is areflexic. He is alert and somewhat tremulous. His voice is soft, but understandable. He has poor attention and concentration. IMPRESSION: Right C6 radiculopathy. It may be subacute in onset, although it is hard to get a clear and concise history. He appears to have a chronic left cervical radiculopathy as well. His MRI of the cervical spine did not reveal any cord compression or intraaxial abnormalities and so I do not think there is any reason to consider cervical spine surgery certainly at this point in time. His acute medical issues and particularly his pulmonary status take precedence at this point. If he continues to improve and continues to have new right arm weakness, I will plan on doing electrodiagnostic studies of his right arm and other limbs if needed. I do not see any other laboratory studies that need to be checked in regards to his encephalopathy, which appears to be alcohol related. He does seem clear today in spite of his pulmonary issues than the last 2 times that I have examined him. [id number]/[facility] #: [id number] [facility]
[2016-10-24] MEDS: Cefepime(*) 2 GM in NS 0.9% 50 ML* 50 ML IVPB SCH ×2 (02:09→14:32)
[2016-10-24] MEDS: ALPRAZolam TAB* 0.25 MG PO PRN ×3 (05:39→21:31)
[2016-10-24] MEDS: Heparin VIAL(*) 5000 UNITS/ML VIAL (FIVE THOUSAND) SUBCUT SCH (05:39)
[2016-10-24 06:16] LABS: Hematocrit 38 % (42-52); Hemoglobin 12.9 g/dl (14.0-18.0); Mean Corpuscular HGB Conc 34 g/dl (31-36); Mean Corpuscular Hemoglobin 35 pg (27-31); Mean Corpuscular Volume 101 fL (80-94); Mean Platelet Volume 9 um3 (7.4-10.4); Red Cell Distribution Width 14 % (10.5-15); White Blood Count 18.6 10^3/ul (3.5-10.8)
[2016-10-24 06:31] LABS: BUN/Creatinine Ratio 20.3 (8-20); EGFR African American 162.4 (>60); EGFR Non-African American 126.3 (>60); Potassium 3.9 mmol/L (3.5-5.0)
[2016-10-24] MEDS ORDERED: Thiamine IV* 100 MG/ML 2 ML VIAL IV SCH (09:00)
[2016-10-24] MEDS ORDERED: Albuterol/Ipratropium NEB.SOL* Albuterol 2.5 MG/Ipratropium 0.5 MG 3 ML INH SCH (09:00)
[2016-10-24] MEDS ORDERED: Thiamine IV* 100 MG/ML 2 ML VIAL ONE (10:32)
[2016-10-24] MEDS: Potassium Chlor TAB* 20 MEQ TAB.ER PO SCH (10:38)
[2016-10-24] MEDS: Magnesium Oxide TAB* 400 MG PO SCH (10:38)
[2016-10-24] MEDS: Losartan TAB* 25 MG PO SCH (10:38)
[2016-10-24] MEDS: Enoxaparin(*) 40 MG/0.4 ML SYR SUBCUT SCH (10:38)
[2016-10-24] MEDS: Carvedilol TAB* 6.25 MG PO SCH ×2 (10:39→21:32)
[2016-10-24] MEDS: Famotidine TAB* 20 MG PO SCH (10:40)
[2016-10-24] MEDS: Folic Acid TAB* 1 MG PO SCH (10:40)
[2016-10-24] MEDS: Multivitamins/Minerals TAB PO SCH (10:40)
[2016-10-24] MEDS: Thiamine IV* 100 MG in NS 0.9% 50 ML* 50 ML IV SCH (10:55)
[2016-10-24] MEDS: Mometasone/Formoter 200/5 MDI INH SCH ×2 (11:35→19:54)
--- NOTE | 2016-10-24 11:51 | PN ---
Critical Care Services: No new problems overnight. Patient remains on 100% O2 at 30 L/min. Neurology service will hold on diagnostic evaluation of C6 radiculopathy until pulmonary issues are resolved. Vital Signs: Temp Pulse Resp BP SpO2 FiO2 98.4 F 103 28 98/71 99 100 NOTE: Afebrile overnight. Physical Exam: Gen:Awake and oriented. Appears comfortable Lungs:Scattered rhonchi. No wheezes. Extremities:No cyanosis or edema. Fluid Balance (Past 24 Hours): 10/24/16 06:59 Intake Total 995 Output Total 750 Balance +245 Weight 154 lb Intake: IV Fluids 40 NS (0.9%) 40 IVPB 50 Clindamycin 50 Medicated IV 115 cefepime 115 Oral 790 Output: Urine 750 Other: Estimated Void Large # Bowel Movements 1 Estimated Stool Amount Small # Voids 2 Labs: 10/21/16 10/24/16 10/24/16 14:30 06:05 06:05 WBC 18.6 Hgb 12.9 Hct 38 MCV 101 Plt Count 296 Sodium 126 Potassium 3.9 Chloride 95 L Carbon Dioxide 23 Anion Gap 8 BUN 13 Creatinine 0.64 Glucose 115 Calcium 9.0 Urine Osm 770 Studies: None today Nutrition: Oral diet Impression: 1. Progressive leukocytosis, but no other evidence for progression of pneumonia (e.g., gas exchange not worsening). 2. Urine osmolality consistent with Dx of SIADH Plan: 1. No further change in antibiotic coverage for now. Await results of blood cultures. (No sputum available for culture). 2. Will try fluid restriction for SIADH - if ineffective, will consider vaptan Rx.
[2016-10-25] MEDS: Cefepime(*) 2 GM in NS 0.9% 50 ML* 50 ML IVPB SCH (00:51)
[2016-10-25 06:24] LABS: Hematocrit 35 % (42-52); Hemoglobin 11.9 g/dl (14.0-18.0); Mean Corpuscular HGB Conc 34 g/dl (31-36); Mean Corpuscular Hemoglobin 34 pg (27-31); Mean Corpuscular Volume 101 fL (80-94); Mean Platelet Volume 9 um3 (7.4-10.4); Red Blood Count 3.48 10^6/ul (4.0-5.4); Red Cell Distribution Width 14 % (10.5-15); White Blood Count 14.4 10^3/ul (3.5-10.8)
[2016-10-25 06:36] LABS: BUN/Creatinine Ratio 23.1 (8-20); Calcium 9.1 mg/dL (8.6-10.3); EGFR African American 159.6 (>60); EGFR Non-African American 124.1 (>60); Potassium 3.9 mmol/L (3.5-5.0)
[2016-10-25] MEDS: Magnesium Oxide TAB* 400 MG PO SCH (08:13)
[2016-10-25] MEDS: Folic Acid TAB* 1 MG PO SCH (08:13)
[2016-10-25] MEDS: Famotidine TAB* 20 MG PO SCH (08:13)
[2016-10-25] MEDS: Potassium Chlor TAB* 20 MEQ TAB.ER PO SCH (08:13)
[2016-10-25] MEDS: Enoxaparin(*) 40 MG/0.4 ML SYR SUBCUT SCH (08:14)
[2016-10-25] MEDS: Thiamine IV* 100 MG in NS 0.9% 50 ML* 50 ML IV SCH (08:14)
[2016-10-25] MEDS: Carvedilol TAB* 6.25 MG PO SCH ×2 (08:14→21:30)
[2016-10-25] MEDS: Losartan TAB* 25 MG PO SCH (08:14)
[2016-10-25] MEDS: Multivitamins/Minerals TAB PO SCH (08:14)
[2016-10-25] MEDS: Mometasone/Formoter 200/5 MDI INH SCH ×2 (08:20→20:48)
[2016-10-25] MEDS: ALPRAZolam TAB* 0.25 MG PO PRN (08:36)
[2016-10-25] MEDS: Nicotine Inhaler* 10 MG AMP INH PRN (08:36)
--- NOTE | 2016-10-25 13:31 | PN ---
Critical Care Services: Continues to improve, and is now off high-flow O2. No pathogen isolated. Vital Signs: Temp Pulse Resp BP SpO2 FiO2 98.9 F 101 15 96/68 93 70 Physical Exam: Gen:Awake and responds appropriately to comands. No respiratory distress. Lungs:Scattered rhonchi. No wheezes or crackles. Extremities: No cyanosis or edema. Unable to raise right arm against gravity. Fluid Balance (Past 24 Hours): 10/25/16 06:59 Intake Total 846 Output Total 500 Balance +346 Weight 159 lb Intake: IV Fluids 274 ABX - CEFEPIME 64 Clindamycin 100 NS (0.9%) 60 thiamine 50 IVPB 72 ABX - CEFEPIME 72 Clindamycin Medicated IV cefepime Oral 500 Output: Urine 250 Lanza 250 Other: Estimated Void # Bowel Movements Estimated Stool Amount # Voids Labs: 10/25/16 10/25/16 06:12 06:12 WBC 14.4 RBC 3.48 Hgb 11.9 Hct 35 MCV 101 Plt Count 275 Sodium 127 Potassium 3.9 Chloride 96 Carbon Dioxide 26 Anion Gap 5 BUN 15 Creatinine 0.65 Glucose 102 Calcium 9.1 Studies: Urine negative for legionella and pneumococcal antigens. Blood cultures negative to date. Nutrition: Regular diet with 1200 ml fluid restriction. Impression: 1. Improved respiratory status, despite no evidence for an infectious pneumonia. Plan: 1. D/C antibiotics. 2. Can be transferred out of ICU today 3. Maintain 1200 ml/day fluid restriction for SIADH. 4. Neuro service following right arm weakness (from C5 radiculopathy).
[2016-10-25] MEDS ORDERED: Alteplase (CATHFLO)* 2 MG VIAL IV ONE (22:02)
[2016-10-26 05:36] LABS: Hematocrit 35 % (42-52); Mean Corpuscular HGB Conc 34 g/dl (31-36); Mean Corpuscular Hemoglobin 34 pg (27-31); Mean Corpuscular Volume 101 fL (80-94); Mean Platelet Volume 10 um3 (7.4-10.4); Red Blood Count 3.49 10^6/ul (4.0-5.4); Red Cell Distribution Width 14 % (10.5-15)
[2016-10-26 05:46] LABS: BUN/Creatinine Ratio 33.3 (8-20); Blood Urea Nitrogen 15 mg/dL (6-24); CO2 Carbon Dioxide 24 mmol/L (22-32); Calcium 8.2 mg/dL (8.6-10.3); Chloride 99 mmol/L (101-111); EGFR African American 243.9 (>60); EGFR Non-African American 189.7 (>60); Glucose 83 mg/dL (70-100); Sodium 128 mmol/L (133-145)
[2016-10-26 06:06] LABS: Anion Gap 5 mmol/L (2-11)
[2016-10-26] MEDS: Mometasone/Formoter 200/5 MDI INH SCH ×2 (09:00→20:24)
--- NOTE | 2016-10-26 09:23 | PN ---
Subjective Date of Service: 10/26/16 Interval History: Patient seen and examined at bedside. Mr. Brown has more understandable speech than previous interaction. He is able to make needs known, though his thought pattern is somewhat disorganized. He does report frustration with RUE weakness, stating it's worse than before. Patient also reports that the left arm is also weak but not to the same extent as the right. Denies CP, SOB. Cough improving. He reports feeling constipated. Telemetry: Afib 90s-100 Family History: Unchanged from Admission Social History: Unchanged from Admission Past Medical History: Unchanged from Admission Objective Active Medications: Acetaminophen (Tylenol Tab*) 650 mg PO Q4H PRN PRN Reason: PAIN Last Admin: 10/22/16 06:05 Dose: 650 mg Albuterol (Ventolin 2.5 Mg/3 Ml Neb.Mary*) 2.5 mg INH Q2H PRN PRN Reason: SOB/WHEEZING Alprazolam (Xanax Tab*) 0.25 mg PO TID PRN PRN Reason: AGITATION Last Admin: 10/25/16 08:36 Dose: 0.25 mg Carvedilol (Coreg Tab*) 12.5 mg PO 0900,2100 [facility] Last Admin: 10/25/16 21:30 Dose: 12.5 mg Enoxaparin Sodium (Lovenox(*)) 40 mg SUBCUT Q24H [facility] Last Admin: 10/25/16 08:14 Dose: 40 mg Famotidine (Pepcid Tab*) 20 mg PO DAILY [facility] Last Admin: 10/25/16 08:13 Dose: 20 mg Folic Acid (Folvite Tab*) 1 mg PO DAILY [facility] Last Admin: 10/25/16 08:13 Dose: 1 mg Heparin Sodium (Porcine) (Heparin Flush Picc/Ml/Cvc(*)) 1 - 3 ml FLUSH 0600, 1800 [facility] PRN Reason: Protocol Last Admin: 10/26/16 05:16 Dose: 1 ml Hydralazine HCl (Apresoline Iv*) 10 mg IV Q4H PRN PRN Reason: Systolic >170 Last Admin: 10/17/16 06:04 Dose: 10 mg Losartan Potassium (Cozaar Tab*) 50 mg PO DAILY [facility] Last Admin: 10/25/16 08:14 Dose: Not Given Magnesium Oxide (Magox 400 Tab*) 400 mg PO DAILY [facility] Last Admin: 10/25/16 08:13 Dose: 400 mg Mometasone Furoate/Formoterol Fumar (Dulera 200/5 Mdi*) 2 puff INH BID [facility] Last Admin: 10/25/16 20:48 Dose: 2 puff Multivitamins/Minerals (Theragran/Minerals Tab*) 1 tab PO DAILY [facility] Last Admin: 10/25/16 08:14 Dose: 1 tab Nicotine (Nicotine Inhaler*) 10 mg INH Q2H PRN PRN Reason: CRAVINGS Last Admin: 10/25/16 08:36 Dose: 10 mg Potassium Chloride (Klor Con Er Tab*) 20 meq PO DAILY [facility] Last Admin: 10/25/16 08:13 Dose: 20 meq Thiamine HCl (Vitamin B-1 Tab*) 100 mg PO DAILY [facility] Vital Signs 10/25/16 10/25/16 10/25/16 09:30 10:00 10:01 Temperature Pulse Rate 101 95 95 Respiratory 25 21 28 Rate Blood Pressure 96/76 125/109 (mmHg) O2 Sat by Pulse 94 94 93 Oximetry 10/25/16 10/25/16 10/25/16 10:38 11:00 11:30 Temperature Pulse Rate 102 96 96 Respiratory 23 29 24 Rate Blood Pressure 99/65 90/76 93/73 (mmHg) O2 Sat by Pulse 91 93 93 Oximetry 10/25/16 10/25/16 10/25/16 12:00 12:31 13:00 Temperature 98.9 F Pulse Rate 104 101 97 Respiratory 22 15 28 Rate Blood Pressure 82/70 96/68 95/80 (mmHg) O2 Sat by Pulse 93 93 82 Oximetry 10/25/16 10/25/16 10/25/16 14:00 15:10 15:14 Temperature 97.2 F Pulse Rate 94 Respiratory 16 22 27 Rate Blood Pressure 90/69 (mmHg) O2 Sat by Pulse 92 Oximetry 10/25/16 10/25/16 10/25/16 16:00 16:19 17:00 Temperature Pulse Rate Respiratory 9 12 4 Rate Blood Pressure (mmHg) O2 Sat by Pulse Oximetry 10/25/16 10/25/16 10/25/16 18:00 19:00 19:21 Temperature 99.1 F Pulse Rate 89 Respiratory 17 20 17 Rate Blood Pressure 115/69 (mmHg) O2 Sat by Pulse 93 Oximetry 10/25/16 10/25/16 10/25/16 20:00 21:00 22:00 Temperature Pulse Rate Respiratory 9 5 25 Rate Blood Pressure (mmHg) O2 Sat by Pulse Oximetry 10/25/16 10/25/16 10/26/16 23:00 23:18 00:00 Temperature 98.0 F Pulse Rate 87 Respiratory 8 16 7 Rate Blood Pressure 118/76 (mmHg) O2 Sat by Pulse 92 Oximetry 10/26/16 10/26/16 10/26/16 01:00 02:00 03:00 Temperature Pulse Rate Respiratory 13 12 17 Rate Blood Pressure (mmHg) O2 Sat by Pulse Oximetry 10/26/16 10/26/16 10/26/16 04:00 05:00 06:00 Temperature Pulse Rate Respiratory 4 17 29 Rate Blood Pressure (mmHg) O2 Sat by Pulse Oximetry 10/26/16 10/26/16 07:32 08:00 Temperature 97.5 F Pulse Rate 107 Respiratory 16 18 Rate Blood Pressure 127/80 (mmHg) O2 Sat by Pulse 94 Oximetry Oxygen Devices in Use Now: Nasal Cannula - 10Lnc Appearance: Male patient, sitting up in bed, NAD Eyes: No Scleral Icterus Ears/Nose/Mouth/Throat: Clear Oropharnyx, Mucous Membranes Moist Neck: NL Appearance and Movements; NL JVP Respiratory: Symmetrical Chest Expansion and Respiratory Effort, - - scattered rhonchi Cardiovascular: - - irregular rate/rhythm Abdominal: NL Sounds; No Tenderness; No Distention Extremities: No Edema Neurological: - - Alert, oriented to self. Disoriented to time but oriented to place and mostly to situation. Cannot lift right arm against gravity, left arm and hand with some decreased strength Lines/Tubes/Other Access: Clean, Dry and Intact Peripheral IV Nutrition: Taking PO's Result Diagrams: 10/26/16 04:45 10/26/16 06:08 Microbiology and Other Data: Microbiology 10/22/16 16:30 Legionella Urinary Antigen - Final Urine Negative Legionella Streptococcus pneumoniae Ag Screen - Final Negative S. pneumo Antigen Assess/Plan/Problems-Billing Assessment: Mr. Brown is a 61 yo male PMH a fib, alcohol abuse, cardiomyopathy and HTN who was admitted on 10/08/16 for alcohol detox but has persistent weakness and confusion with suspected Wernicke's encephalopathy. - Patient Problems (1) Pneumonia Code(s): J18.9 - PNEUMONIA, UNSPECIFIED ORGANISM Comment: LLL infiltrate with left pleural effusion noted on 10/22 CXR Treated with levofloxacin and clindamycin, then switched to cefepime in ICU Thought to be viral in origin and antibiotics d/c'd Continue IS, guaifenesin, prn albuterol tx (2) Acute respiratory failure with hypoxia Code(s): J96.01 - ACUTE RESPIRATORY FAILURE WITH HYPOXIA Comment: Improving Secondary to LLL pneumonia, thought to be viral Patient weaned from vapotherm, now on 10Lnc (3) Wernicke encephalopathy Code(s): E51.2 - WERNICKE'S ENCEPHALOPATHY Comment: Patient more alert and oriented today but weakness is unchanged. Appreciate neuro consult. MRI cervical spine shows cervical spondylosis with changes most prominent at C5- C6. MRI brain from 10/17 consistent with Wernicke's. Completed thiamine (4) Hyponatremia Code(s): E87.1 - HYPO-OSMOLALITY AND HYPONATREMIA Comment: Suspect SIADH Low serum osmolality, urine Na 100. Continue 1200 fluid restriction and sodium chloride tabs. No abnormality of chest xray at admission or MRI brain to suspect malignancy ( though MRI grossly abnormal with diffuse changes). (5) Alcohol withdrawal Code(s): F10.239 - ALCOHOL DEPENDENCE WITH WITHDRAWAL, UNSPECIFIED Comment: Resolved. Continue IV thiamine for Wernicke's encephalopathy. (6) Alcoholic hepatitis Code(s): K70.10 - ALCOHOLIC HEPATITIS WITHOUT ASCITES Comment: Resolved. Asymptomatic elevation in LFTs, suspect alcoholic hepatitis. (7) Hypertension Code(s): I10 - ESSENTIAL (PRIMARY) HYPERTENSION Comment: Blood pressure very labile, SBP 80-140s. Continue losartan and carvedilol. (8) Atrial fibrillation Code(s): I48.91 - UNSPECIFIED ATRIAL FIBRILLATION Comment: Rate controlled. Pt is not anticoagulated at home due to alcoholism and poor functional status. Continue carvedilol. (9) DVT prophylaxis Comment: SQ heparin (10) Full code status Code(s): Z78.9 - OTHER SPECIFIED HEALTH STATUS Status and Disposition: Inpatient. Continued LOS secondary to multiple acute illnesses and need for inpatient treatment. Patient will likely need subacute rehab vs NH placement due to weakness and inability to ambulate.
[2016-10-26] MEDS: Losartan TAB* 25 MG PO SCH (11:02)
[2016-10-26] MEDS: Folic Acid TAB* 1 MG PO SCH (11:02)
[2016-10-26] MEDS: Potassium Chlor TAB* 20 MEQ TAB.ER PO SCH (11:02)
[2016-10-26] MEDS: Multivitamins/Minerals TAB PO SCH (11:03)
[2016-10-26] MEDS: Carvedilol TAB* 6.25 MG PO SCH ×2 (11:03→21:31)
[2016-10-26] MEDS: Thiamine TAB* 100 MG TAB PO SCH (11:03)
[2016-10-26] MEDS: Famotidine TAB* 20 MG PO SCH (11:03)
[2016-10-26] MEDS: Enoxaparin(*) 40 MG/0.4 ML SYR SUBCUT SCH (11:15)
[2016-10-26] MEDS: Magnesium Oxide TAB* 400 MG PO SCH (11:19)
[2016-10-26] MEDS ORDERED: Senna TAB PO PRN (15:15)
[2016-10-26] MEDS: Polyethylene Glycol 3350* 17 GM PACKET PO SCH (17:10)
[2016-10-26] MEDS ORDERED: Mouth Piece, Nicotine* 1 EACH CARTRIDGE ONE (17:23)
[2016-10-26] MEDS: Nicotine Inhaler* 10 MG AMP INH PRN (17:26)
[2016-10-26 17:41] LABS: Calcium (PTH Intact) 8.8 mg/dL (8.6-10.3)
[2016-10-26 17:55] LABS: TSH (Thyroid Stimulating Horm) 1.2 mcIU/mL (0.34-5.60)
[2016-10-26 17:58] LABS: Free T3 3.1 pg/mL (2.5-3.9)
[2016-10-26 17:59] LABS: Free T4 1.44 ng/dL (0.61-1.12)
[2016-10-26 18:03] LABS: Total T3 0.67 ng/mL (0.87-1.78)
[2016-10-26] MEDS: Docusate CAP* 100 MG PO SCH (20:32)
[2016-10-26] MEDS: ALPRAZolam TAB* 0.25 MG PO PRN (20:42)
--- NOTE | 2016-10-27 01:11 | CONS ---
NEUROLOGY FOLLOWUP NOTE: DATE OF FOLLOWUP: 10/26/16 HOSPITALIST: Shilpa Davis NP LOCATION: He is inpatient, in room 440. CHIEF COMPLAINT: Arm weakness. INTERVAL HISTORY: Since yesterday, Mr. Brown is doing about the same. He is hard to understand and he seems confused. He jumps around to different topics. MEDICATIONS: Reviewed and he remains on Coreg 12.5 mg p.o. b.i.d., Lovenox 40 mg subcutaneous q.24 hours, famotidine 20 mg p.o. daily, folic acid 1 mg p.o. daily, hydralazine 10 mg IV q.4 hours p.r.n . systolic greater than 170, Cozaar 50 mg p.o. daily, magnesium oxide 400 mg p.o. daily, multivitami ns 1 p.o. daily, thiamine 100 mg p.o. daily. PHYSICAL EXAMINATION: He is very thin. Temperature 97.5 orally, blood pressure 127/80, heart rate in the 80s and regular. Neurological Exam: He has barely antigravity right biceps weakness, good resistive right triceps st rength. He has some intrinsic hand muscle weakness on the right. He has bilateral grade IV hip flex or weakness. Speech is very soft and at times mumbly. Attention and concentration are poor. LABORATORY DATA: Includes a nerve conduction EMG study done by myself today at the bedside. He has evidence of sensorimotor, axonal and demyelinating polyneuropathy as well as acute right C6 radicul opathy with abundant recent denervation. There is also myopathic motor unit potentials in the right biceps. Other laboratory data notable for CBC from today, notable for white blood cell count 11.0, hemoglobi n 12.0, platelet count 270,000. Chemistry profile from today notable for sodium 128, creatinine jus t 0.45, calcium 8.2. Liver enzymes are normal today. Of note, he had an elevated CK at 229 on 09/29 and CRP was 13.3 on 10/22/16. IMPRESSION: My impression is that Mr. Brown has Wernicke's encephalopathy, which is stable. He has a right C6 radiculopathy with abundant recent denervation, which I believe is the main cause of his arm weakness. He also has features of myopathy and peripheral neuropathy, which could both be from alcohol or other nutritional factors. Given the presence of the myopathy and the neuropathy, I ordered lab tests to look for other causes. He had vitamin D deficiency when it was checked back in 2015, but I do not see that it has been ch ecked this admission and he is not on vitamin D. That could cause a myopathy. We will also check p rotein electrophoresis, Lyme screen, and thyroid function tests. He had a low T4 level back in July and a low normal TSH on 10/08/16 and he is not on thyroid medicine and that could cause neuropathy o r myopathy. at some point he should probably have a neurosurgical consultation regarding his radiculopath y, but certainly he is not the best of surgical candidates. There is no evidence of spinal cord com pression, so I think it would be an elective consideration in any case. [id number]/[facility] #: [id number]
[2016-10-27 05:35] LABS: Hematocrit 37 % (42-52); Hemoglobin 12.8 g/dl (14.0-18.0); Mean Corpuscular HGB Conc 34 g/dl (31-36); Mean Corpuscular Hemoglobin 35 pg (27-31); Mean Corpuscular Volume 101 fL (80-94); Mean Platelet Volume 9 um3 (7.4-10.4); Red Cell Distribution Width 14 % (10.5-15); White Blood Count 13.2 10^3/ul (3.5-10.8)
[2016-10-27 05:36] LABS: BUN/Creatinine Ratio 23.8 (8-20); Calcium 9.3 mg/dL (8.6-10.3); EGFR African American 165.4 (>60); EGFR Non-African American 128.6 (>60); Potassium 4.1 mmol/L (3.5-5.0)
[2016-10-27 05:39] LABS: Add Diff/Slide Review? Slide Review Added; Comments Flag Yes
[2016-10-27] MEDS: Mometasone/Formoter 200/5 MDI INH SCH ×2 (08:02→19:35)
--- NOTE | 2016-10-27 08:49 | CONSULT ---
Consult Consult: Neurosurgery Consult Date of consult: 10/27/16 Reason for consult: Cervical radiculopathy Referring provider: Shilpa Davis NP HPI: This is a 61 year old male with past medical history significant for HTN, alcoholism, cardiomyopathy and atrial fibrillation who presented to the [facility] ED for detox. He then began to complain of weakness in the upper and lower extremities and difficulty walking. Currently he reports weakness in the bilateral upper extremities beginning two Mondays ago. The right upper extremity is worse than left but notes that he used to have worse weakness in the left. He states that he notices the weakness most when he is not drinking alcohol. 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 He denies numbness, tingling and pain in the bilateral upper extremities. He denies headache, vision changes, neck pain, chest pain, difficulty breathing, nausea and vomiting. He denies numbness, tingling, weakness and pain in the bilateral lower extremities. He has a history of anterior cervical fusion which, per the patient, was performed in [place] in January 2016 after he sustained an injury falling down the stairs. Past medical history: 1. Atrial fibrillation 2. HTN 3. Cardiomyopathy 4. Spinal stenosis 5. Skin cancer 6. SVT 7. Cervical spine fracture Past surgical history: 1. ORIF wrist 2. Bilateral cataracts 3 Anterior cervical fusion C4-5 4. Mole excisions Home medications: 1. Carvedilol [Coreg] 25 mg PO BID 10/08/16 [History Confirmed 10/08/16] 2. Famotidine [Pepcid] 20 mg PO DAILY 10/08/16 [History Confirmed 10/08/16] 3. Losartan TAB* [Cozaar TAB*] 50 mg PO DAILY 10/08/16 [History Confirmed ] 4. Meloxicam 7.5 mg PO Q12H PRN 10/08/16 [History Confirmed 10/08/16] Allergies: 1. Tetracycline 2. Lisinopril 3. Penicillins 4. Lorazepam Social history: This patient is a current smoker and heavily consumes alcohol for the past 30 or more years. He lives at home with his in [place]. ROS: Pertinent finding stated in HPI, all others negative. Physical exam: Vital Signs: Temp Pulse Resp BP Pulse Ox 99.5 F 94 18 102/67 97 10/27/16 07:35 10/27/16 07:35 10/27/16 07:35 10/27/16 07:35 10/27/16 07:35 General: Alert and sitting comfortably in chair. Oriented to person and hospital. HEENT: Head is normocephalic and atraumatic. PERRL, EOMI. Gross hearing intact. Moist mucus membranes. Neck: Supple, symmetric, no adenopathy, nontender to palpation.Full ROM. CV: Irregular. Radial pulses 2+. Pedal pulses palpable. Lungs: Breathing is nonlabored. Lungs are clear. Abdomen: Normoactive bowel sounds. Soft, nontender and nondistended. Neuro: CN II-XII intact. Speech is clear and coherent although soft. Upper extremity strength: Right deltoid 2+/5, biceps 3/5, triceps 5/5; Left deltoid 5/ 5, biceps 5/5, triceps 3/5. Game Protector strength decreased but equal bilaterally. Intrinsic strength decreased but equal bilaterally. Lower extremity strength: 5/ 5 thoughout. Sensation intact throughout. Hoffmans negative bilaterally. Finger to nose and heel to camacho coordination intact. Imagin. MRI of the cervical spine on 10/22/16 shows anterior cervical fusion C4-5 with stable appearing construct; and multilevel cervical spondylosis without cord compression. Assessment: This is a 61 year old male with multiple medical conditions who presented to the [facility] ED for alcohol detox and later complained of weakness. Evaluation of upper extremity weakness and cervical radiculopathy reveals right biceps and deltoid weakness and left triceps weakness. No pain or numbness. There is no indication for surgery at this time. This case was discussed with Dr. Johnson and Shilpa Davis NP. Plan: 1. No urgent cervical spine surgery indicated. 2. Follow up as outpatient if weakness persists.
[2016-10-27] MEDS: Enoxaparin(*) 40 MG/0.4 ML SYR SUBCUT SCH (09:40)
[2016-10-27] MEDS: Docusate CAP* 100 MG PO SCH ×2 (09:40→21:21)
[2016-10-27] MEDS: Folic Acid TAB* 1 MG PO SCH (09:41)
[2016-10-27] MEDS: Multivitamins/Minerals TAB PO SCH (09:41)
[2016-10-27] MEDS: Carvedilol TAB* 6.25 MG PO SCH ×2 (09:41→21:20)
[2016-10-27] MEDS: Cholecalciferol TAB* 1000 UNITS PO SCH (09:41)
[2016-10-27] MEDS: Losartan TAB* 25 MG PO SCH (09:41)
[2016-10-27] MEDS: Famotidine TAB* 20 MG PO SCH (09:41)
[2016-10-27] MEDS: Thiamine TAB* 100 MG TAB PO SCH (09:42)
[2016-10-27] MEDS: Polyethylene Glycol 3350* 17 GM PACKET PO SCH (09:42)
[2016-10-27] MEDS: Magnesium Oxide TAB* 400 MG PO SCH (09:42)
[2016-10-27] MEDS: Potassium Chlor TAB* 20 MEQ TAB.ER PO SCH (09:42)
--- NOTE | 2016-10-27 10:15 | PN ---
Subjective Date of Service: 10/27/16 Interval History: Patient seen and examined at bedside. Mr. Brown reports a productive cough, denies pain, CP, SOB. Patient is rather tangential in conversation and it's difficult to determine orientation. Does not always answer appropriately. No acute concerns expressed by patient or nursing. Family History: Unchanged from Admission Social History: Unchanged from Admission Past Medical History: Unchanged from Admission Objective Active Medications: Acetaminophen (Tylenol Tab*) 650 mg PO Q4H PRN PRN Reason: PAIN Last Admin: 10/22/16 06:05 Dose: 650 mg Albuterol (Ventolin 2.5 Mg/3 Ml Neb.Mary*) 2.5 mg INH Q2H PRN PRN Reason: SOB/WHEEZING Last Admin: 10/26/16 11:20 Dose: 2.5 mg Alprazolam (Xanax Tab*) 0.25 mg PO TID PRN PRN Reason: AGITATION Last Admin: 10/26/16 20:42 Dose: 0.25 mg Carvedilol (Coreg Tab*) 12.5 mg PO 0900,2100 [facility] Last Admin: 10/27/16 09:41 Dose: 12.5 mg Cholecalciferol (Vitamin D Tab*) 1,000 units PO DAILY [facility] Last Admin: 10/27/16 09:41 Dose: 1,000 units Docusate Sodium (Colace Cap*) 100 mg PO BID [facility] Last Admin: 10/27/16 09:40 Dose: 100 mg Enoxaparin Sodium (Lovenox(*)) 40 mg SUBCUT Q24H [facility] Last Admin: 10/27/16 09:40 Dose: 40 mg Famotidine (Pepcid Tab*) 20 mg PO DAILY [facility] Last Admin: 10/27/16 09:41 Dose: 20 mg Folic Acid (Folvite Tab*) 1 mg PO DAILY [facility] Last Admin: 10/27/16 09:41 Dose: 1 mg Heparin Sodium (Porcine) (Heparin Flush Picc/Ml/Cvc(*)) 1 - 3 ml FLUSH 0600, 1800 [facility] PRN Reason: Protocol Last Admin: 10/27/16 06:42 Dose: 1 ml Hydralazine HCl (Apresoline Iv*) 10 mg IV Q4H PRN PRN Reason: Systolic >170 Last Admin: 10/17/16 06:04 Dose: 10 mg Losartan Potassium (Cozaar Tab*) 50 mg PO DAILY [facility] Last Admin: 10/27/16 09:41 Dose: 50 mg Magnesium Oxide (Magox 400 Tab*) 400 mg PO DAILY [facility] Last Admin: 10/27/16 09:42 Dose: 400 mg Mometasone Furoate/Formoterol Fumar (Dulera 200/5 Mdi*) 2 puff INH BID [facility] Last Admin: 10/27/16 08:02 Dose: 2 puff Multivitamins/Minerals (Theragran/Minerals Tab*) 1 tab PO DAILY [facility] Last Admin: 10/27/16 09:41 Dose: 1 tab Nicotine (Nicotine Inhaler*) 10 mg INH Q2H PRN PRN Reason: CRAVINGS Last Admin: 10/26/16 17:26 Dose: 10 mg Polyethylene Glycol/Electrolytes (Miralax*) 17 gm PO DAILY [facility] Last Admin: 10/27/16 09:42 Dose: 17 gm Potassium Chloride (Klor Con Er Tab*) 20 meq PO DAILY [facility] Last Admin: 10/27/16 09:42 Dose: 20 meq Senna (Senokot Tab*) 2 tab PO BEDTIME PRN PRN Reason: CONSTIPATION Thiamine HCl (Vitamin B-1 Tab*) 100 mg PO DAILY [facility] Last Admin: 10/27/16 09:42 Dose: 100 mg Vital Signs 10/26/16 10/26/16 10/26/16 11:48 15:10 19:40 Temperature 98.7 F 98.5 F Pulse Rate 94 107 100 Respiratory 18 20 20 Rate Blood Pressure 100/66 93/64 85/59 (mmHg) O2 Sat by Pulse 100 99 100 Oximetry 10/26/16 10/26/16 10/26/16 20:00 20:42 22:42 Temperature Pulse Rate Respiratory 20 21 20 Rate Blood Pressure (mmHg) O2 Sat by Pulse Oximetry 10/26/16 10/27/16 23:22 07:35 Temperature 98.6 F 99.5 F Pulse Rate 107 94 Respiratory 20 18 Rate Blood Pressure 107/74 102/67 (mmHg) O2 Sat by Pulse 98 97 Oximetry Oxygen Devices in Use Now: Nasal Cannula - 10Lnc Appearance: Male patient, lying in bed, NAD Eyes: No Scleral Icterus, PERRLA Ears/Nose/Mouth/Throat: Clear Oropharnyx, Mucous Membranes Moist Neck: NL Appearance and Movements; NL JVP Respiratory: Symmetrical Chest Expansion and Respiratory Effort, Clear to Auscultation - diminished Cardiovascular: NL Sounds; No Murmurs; No JVD, RRR Abdominal: NL Sounds; No Tenderness; No Distention Extremities: No Edema, No Clubbing, Cyanosis Neurological: - - alert, oriented to self, appears confused to situation, time. Does not always answer appropriate. Lines/Tubes/Other Access: Clean, Dry and Intact PICC Line - midline incision Nutrition: Taking PO's Result Diagrams: 10/27/16 05:01 10/27/16 05:00 Microbiology and Other Data: Microbiology 10/22/16 16:30 Legionella Urinary Antigen - Final Urine Negative Legionella Streptococcus pneumoniae Ag Screen - Final Negative S. pneumo Antigen Assess/Plan/Problems-Billing Assessment: Mr. Brown is a 61 yo male PMH a fib, alcohol abuse, cardiomyopathy and HTN who was admitted on 10/08/16 for alcohol detox but has persistent weakness and confusion with suspected Wernicke's encephalopathy. - Patient Problems (1) Cervical radiculopathy Code(s): M54.12 - RADICULOPATHY, CERVICAL REGION Comment: With suspected neuropathy Appreciate neurology and neurosurgery consults Start cholecalciferol for Vitamin D deficiency to potentially help with neuropathy (2) Pneumonia Code(s): J18.9 - PNEUMONIA, UNSPECIFIED ORGANISM Comment: Improving LLL infiltrate with left pleural effusion noted on 10/22 CXR Treated with levofloxacin and clindamycin, then switched to cefepime in ICU Thought to be viral in origin and antibiotics d/c'd Continue IS, guaifenesin, prn albuterol tx (3) Acute respiratory failure with hypoxia Code(s): J96.01 - ACUTE RESPIRATORY FAILURE WITH HYPOXIA Comment: Resolved Secondary to LLL pneumonia, thought to be viral (4) Wernicke encephalopathy Code(s): E51.2 - WERNICKE'S ENCEPHALOPATHY Comment: Patient more alert and oriented today but weakness is unchanged. Appreciate neuro consult. MRI cervical spine shows cervical spondylosis with changes most prominent at C5- C6. MRI brain from 10/17 consistent with Wernicke's. Completed thiamine (5) Hyponatremia Code(s): E87.1 - HYPO-OSMOLALITY AND HYPONATREMIA Comment: Improving Suspect SIADH Low serum osmolality, urine Na 100. Continue 1200 fluid restriction and sodium chloride tabs. No abnormality of chest xray at admission or MRI brain to suspect malignancy ( though MRI grossly abnormal with diffuse changes). (6) Hypertension Code(s): I10 - ESSENTIAL (PRIMARY) HYPERTENSION Comment: Blood pressure very labile, SBP 80-140s. Continue losartan and carvedilol. (7) Atrial fibrillation Code(s): I48.91 - UNSPECIFIED ATRIAL FIBRILLATION Comment: Rate controlled. Pt is not anticoagulated at home due to alcoholism and poor functional status. Continue carvedilol. (8) DVT prophylaxis Comment: SQ heparin (9) Full code status Code(s): Z78.9 - OTHER SPECIFIED HEALTH STATUS Status and Disposition: Inpatient. Continued LOS secondary to multiple acute illnesses and need for inpatient treatment. Patient will likely need subacute rehab vs NH placement due to weakness and inability to ambulate.
[2016-10-27] MEDS ORDERED: Mouth Piece, Nicotine* 1 EACH CARTRIDGE ONE (15:22)
[2016-10-27] MEDS: ALPRAZolam TAB* 0.25 MG PO PRN ×2 (15:24→19:46)
[2016-10-27] MEDS: Nicotine Inhaler* 10 MG AMP INH PRN ×2 (15:24→21:55)
[2016-10-27 17:07] LABS: C Reactive Protein 126.69 mg/L (< 5.00)
[2016-10-28] MEDS: ALPRAZolam TAB* 0.25 MG PO PRN ×3 (06:10→21:37)
[2016-10-28] MEDS: Mometasone/Formoter 200/5 MDI INH SCH ×2 (07:45→19:56)
[2016-10-28] MEDS: Enoxaparin(*) 40 MG/0.4 ML SYR SUBCUT SCH (09:26)
[2016-10-28] MEDS: Carvedilol TAB* 6.25 MG PO SCH ×2 (09:26→21:36)
[2016-10-28] MEDS: Losartan TAB* 25 MG PO SCH (09:26)
[2016-10-28] MEDS: Multivitamins/Minerals TAB PO SCH (09:26)
[2016-10-28] MEDS: Polyethylene Glycol 3350* 17 GM PACKET PO SCH (09:26)
[2016-10-28] MEDS: Potassium Chlor TAB* 20 MEQ TAB.ER PO SCH (09:26)
[2016-10-28] MEDS: Docusate CAP* 100 MG PO SCH ×3 (09:27→21:42)
[2016-10-28] MEDS: Magnesium Oxide TAB* 400 MG PO SCH (09:27)
[2016-10-28] MEDS: Thiamine TAB* 100 MG TAB PO SCH (09:27)
[2016-10-28] MEDS: Folic Acid TAB* 1 MG PO SCH (09:27)
[2016-10-28] MEDS: Famotidine TAB* 20 MG PO SCH (09:27)
[2016-10-28] MEDS: Cholecalciferol TAB* 1000 UNITS PO SCH (09:27)
--- NOTE | 2016-10-28 10:31 | PN ---
Subjective Date of Service: 10/28/16 Interval History: Patient seen and examined at bedside. Patient observed ambulating OOB, was noted to be very unsteady, even with max assist and rolling walker. He denies any new complaints, feels frustrated about his progress. 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 Denies other acute complaint. Family History: Unchanged from Admission Social History: Unchanged from Admission Past Medical History: Unchanged from Admission Objective Active Medications: Acetaminophen (Tylenol Tab*) 650 mg PO Q4H PRN PRN Reason: PAIN Last Admin: 10/22/16 06:05 Dose: 650 mg Albuterol (Ventolin 2.5 Mg/3 Ml Neb.Mary*) 2.5 mg INH Q2H PRN PRN Reason: SOB/WHEEZING Last Admin: 10/26/16 11:20 Dose: 2.5 mg Alprazolam (Xanax Tab*) 0.25 mg PO TID PRN PRN Reason: AGITATION Last Admin: 10/28/16 06:10 Dose: 0.25 mg Carvedilol (Coreg Tab*) 12.5 mg PO 0900,2100 [facility] Last Admin: 10/28/16 09:26 Dose: 12.5 mg Cholecalciferol (Vitamin D Tab*) 1,000 units PO DAILY [facility] Last Admin: 10/28/16 09:27 Dose: 1,000 units Docusate Sodium (Colace Cap*) 100 mg PO BID [facility] Last Admin: 10/28/16 09:27 Dose: 100 mg Enoxaparin Sodium (Lovenox(*)) 40 mg SUBCUT Q24H [facility] Last Admin: 10/28/16 09:26 Dose: 40 mg Famotidine (Pepcid Tab*) 20 mg PO DAILY [facility] Last Admin: 10/28/16 09:27 Dose: 20 mg Folic Acid (Folvite Tab*) 1 mg PO DAILY [facility] Last Admin: 10/28/16 09:27 Dose: 1 mg Heparin Sodium (Porcine) (Heparin Flush Picc/Ml/Cvc(*)) 1 - 3 ml FLUSH 0600, 1800 [facility] PRN Reason: Protocol Last Admin: 10/28/16 06:07 Dose: 1 ml Hydralazine HCl (Apresoline Iv*) 10 mg IV Q4H PRN PRN Reason: Systolic >170 Last Admin: 10/17/16 06:04 Dose: 10 mg Losartan Potassium (Cozaar Tab*) 50 mg PO DAILY [facility] Last Admin: 10/28/16 09:26 Dose: 50 mg Magnesium Oxide (Magox 400 Tab*) 400 mg PO DAILY [facility] Last Admin: 10/28/16 09:27 Dose: 400 mg Mometasone Furoate/Formoterol Fumar (Dulera 200/5 Mdi*) 2 puff INH BID [facility] Last Admin: 10/28/16 07:45 Dose: 2 puff Multivitamins/Minerals (Theragran/Minerals Tab*) 1 tab PO DAILY [facility] Last Admin: 10/28/16 09:26 Dose: 1 tab Nicotine (Nicotine Inhaler*) 10 mg INH Q2H PRN PRN Reason: CRAVINGS Last Admin: 10/27/16 21:55 Dose: 10 mg Polyethylene Glycol/Electrolytes (Miralax*) 17 gm PO DAILY [facility] Last Admin: 10/28/16 09:26 Dose: 17 gm Potassium Chloride (Klor Con Er Tab*) 20 meq PO DAILY [facility] Last Admin: 10/28/16 09:26 Dose: 20 meq Senna (Senokot Tab*) 2 tab PO BEDTIME PRN PRN Reason: CONSTIPATION Thiamine HCl (Vitamin B-1 Tab*) 100 mg PO DAILY [facility] Last Admin: 10/28/16 09:27 Dose: 100 mg Vital Signs 10/27/16 10/27/16 10/27/16 10:34 11:33 15:24 Temperature 98.4 F 98.5 F Pulse Rate 98 100 Respiratory 21 18 Rate Blood Pressure 93/67 82/58 (mmHg) O2 Sat by Pulse 94 94 Oximetry 10/27/16 10/27/16 10/27/16 15:45 16:21 17:24 Temperature 97.9 F 98.4 F Pulse Rate 93 108 Respiratory 24 16 18 Rate Blood Pressure 86/62 93/67 (mmHg) O2 Sat by Pulse 97 94 Oximetry 10/27/16 10/27/16 10/27/16 19:33 19:42 19:46 Temperature 98.5 F Pulse Rate 97 89 Respiratory 25 16 18 Rate Blood Pressure 81/51 (mmHg) O2 Sat by Pulse 93 96 Oximetry 10/27/16 10/27/16 10/27/16 20:00 21:46 23:36 Temperature 98.3 F Pulse Rate 99 Respiratory 18 18 24 Rate Blood Pressure 114/89 (mmHg) O2 Sat by Pulse 94 Oximetry 10/28/16 10/28/16 10/28/16 03:51 06:10 07:31 Temperature 98.4 F 98.8 F Pulse Rate 89 104 Respiratory 20 18 20 Rate Blood Pressure 107/76 104/72 (mmHg) O2 Sat by Pulse 98 95 Oximetry 10/28/16 10/28/16 10/28/16 07:49 08:00 08:10 Temperature Pulse Rate 106 Respiratory 16 18 20 Rate Blood Pressure (mmHg) O2 Sat by Pulse 94 Oximetry Oxygen Devices in Use Now: Nasal Cannula - 10Lnc Appearance: Male patient, lying in bed, NAD Eyes: No Scleral Icterus, PERRLA Ears/Nose/Mouth/Throat: Clear Oropharnyx, Mucous Membranes Moist Neck: NL Appearance and Movements; NL JVP Respiratory: Symmetrical Chest Expansion and Respiratory Effort, Clear to Auscultation Cardiovascular: NL Sounds; No Murmurs; No JVD, RRR Abdominal: NL Sounds; No Tenderness; No Distention Extremities: No Edema Neurological: - - Alert, oriented to self, place, disoriented to time. Right arm movement improved, with some effort against gravity. BLE with some effort against gravity Lines/Tubes/Other Access: Clean, Dry and Intact Peripheral IV Result Diagrams: 10/27/16 05:01 10/27/16 05:00 Microbiology and Other Data: Microbiology 10/22/16 16:30 Legionella Urinary Antigen - Final Urine Negative Legionella Streptococcus pneumoniae Ag Screen - Final Negative S. pneumo Antigen Assess/Plan/Problems-Billing Assessment: Mr. Brown is a 61 yo male PMH a fib, alcohol abuse, cardiomyopathy and HTN who was admitted on 10/08/16 for alcohol detox but has persistent weakness and confusion with suspected Wernicke's encephalopathy. - Patient Problems (1) Cervical radiculopathy Code(s): M54.12 - RADICULOPATHY, CERVICAL REGION Comment: With suspected neuropathy Appreciate neurology and neurosurgery consults Start cholecalciferol for Vitamin D deficiency to potentially help with neuropathy Neurology following, other lab work pending (2) Pneumonia Code(s): J18.9 - PNEUMONIA, UNSPECIFIED ORGANISM Comment: LLL infiltrate with left pleural effusion noted on 10/22 CXR Treated with levofloxacin and clindamycin, then switched to cefepime in ICU Thought to be viral in origin and antibiotics d/c'd Continue IS, guaifenesin, prn albuterol tx (3) Acute respiratory failure with hypoxia Code(s): J96.01 - ACUTE RESPIRATORY FAILURE WITH HYPOXIA Comment: Resolved Secondary to LLL pneumonia, thought to be viral (4) Wernicke encephalopathy Code(s): E51.2 - WERNICKE'S ENCEPHALOPATHY Comment: Patient more alert and oriented today but weakness is unchanged. Appreciate neuro consult. MRI cervical spine shows cervical spondylosis with changes most prominent at C5- C6. MRI brain from 10/17 consistent with Wernicke's. Completed thiamine (5) Hyponatremia Code(s): E87.1 - HYPO-OSMOLALITY AND HYPONATREMIA Comment: Improving Suspect SIADH Low serum osmolality, urine Na 100. Continue 1200 fluid restriction and sodium chloride tabs. No abnormality of chest xray at admission or MRI brain to suspect malignancy ( though MRI grossly abnormal with diffuse changes). (6) Hypertension Code(s): I10 - ESSENTIAL (PRIMARY) HYPERTENSION Comment: Blood pressure very labile, SBP 80-120s. Continue losartan and carvedilol. (7) Atrial fibrillation Code(s): I48.91 - UNSPECIFIED ATRIAL FIBRILLATION Comment: Rate controlled. Pt is not anticoagulated at home due to alcoholism and poor functional status. Continue carvedilol. (8) DVT prophylaxis Comment: SQ heparin (9) Full code status Code(s): Z78.9 - OTHER SPECIFIED HEALTH STATUS Status and Disposition: Inpatient. Continued LOS secondary to multiple acute illnesses and need for inpatient treatment. Patient will likely need subacute rehab vs NH placement due to weakness and inability to ambulate.
[2016-10-28] MEDS ORDERED: Mouth Piece, Nicotine* 1 EACH CARTRIDGE ONE (14:46)
[2016-10-28] MEDS: Nicotine Inhaler* 10 MG AMP INH PRN ×2 (14:55→22:38)
[2016-10-28] MEDS ORDERED: Ergocalciferol CAP* 50000 UNIT PO ONE (18:30)
[2016-10-29 06:57] LABS: Hematocrit 39 % (42-52); Hemoglobin 13.1 g/dl (14.0-18.0); Mean Corpuscular HGB Conc 33 g/dl (31-36); Mean Corpuscular Hemoglobin 34 pg (27-31); Mean Corpuscular Volume 102 fL (80-94); Mean Platelet Volume 9 um3 (7.4-10.4); Red Blood Count 3.87 10^6/ul (4.0-5.4); Red Cell Distribution Width 14 % (10.5-15); White Blood Count 9.6 10^3/ul (3.5-10.8)
[2016-10-29 06:59] LABS: Add Diff/Slide Review? Slide Review Added; Comments Flag Yes
[2016-10-29 07:14] LABS: C Reactive Protein 45.74 mg/L (< 5.00); Calcium 9.6 mg/dL (8.6-10.3); EGFR African American 151.5 (>60); EGFR Non-African American 117.8 (>60); Globulin 3.4 g/dL (2-4); Potassium 4.5 mmol/L (3.5-5.0); Total Bilirubin 0.3 mg/dL (0.2-1.0); Total Protein 6.4 g/dL (6.4-8.9)
[2016-10-29] MEDS: Docusate CAP* 100 MG PO SCH (07:22)
[2016-10-29] MEDS: Magnesium Oxide TAB* 400 MG PO SCH (07:27)
[2016-10-29] MEDS: Carvedilol TAB* 6.25 MG PO SCH (07:28)
[2016-10-29] MEDS: Multivitamins/Minerals TAB PO SCH (07:28)
[2016-10-29] MEDS: Folic Acid TAB* 1 MG PO SCH (07:28)
[2016-10-29] MEDS: Famotidine TAB* 20 MG PO SCH (07:28)
[2016-10-29] MEDS: ALPRAZolam TAB* 0.25 MG PO PRN (07:28)
[2016-10-29] MEDS: Polyethylene Glycol 3350* 17 GM PACKET PO SCH (07:29)
[2016-10-29] MEDS: Mometasone/Formoter 200/5 MDI INH SCH (07:29)
[2016-10-29] MEDS: Enoxaparin(*) 40 MG/0.4 ML SYR SUBCUT SCH (07:29)
[2016-10-29] MEDS: Potassium Chlor TAB* 20 MEQ TAB.ER PO SCH (07:29)
[2016-10-29] MEDS: Thiamine TAB* 100 MG TAB PO SCH (07:31)
[2016-10-29 07:49] LABS: Eosinophils % 3 % (0-6); Immature Granulocytes 6 % (0-9); Macrocytosis 1+; Metamyelocytes % 1 % (0-2); Myelocytes % 4 % (0-1); Neutrophil % 65 % (38-83)
[2016-10-29] MEDS ORDERED: Cholecalciferol TAB* 1000 UNITS PO SCH (09:00)
[2016-10-29] MEDS ORDERED: Losartan TAB* 25 MG PO SCH (09:00)
[2016-10-29] MEDS: Nicotine Inhaler* 10 MG AMP INH PRN (11:22)
--- NOTE | 2016-10-29 11:23 | PN ---
Subjective Date of Service: 10/29/16 Interval History: Mr. Brown has no new complaints today. He notes that his right arm weakness has improved. He denies chest pain, SOB, nausea, or abdominal pain. Family History: Unchanged from Admission Social History: Unchanged from Admission Past Medical History: Unchanged from Admission Objective Active Medications: Acetaminophen (Tylenol Tab*) 650 mg PO Q4H PRN Albuterol (Ventolin 2.5 Mg/3 Ml Neb.Mary*) 2.5 mg INH Q2H PRN Alprazolam (Xanax Tab*) 0.25 mg PO TID PRN Carvedilol (Coreg Tab*) 12.5 mg PO 0900,2100 [facility] Cholecalciferol (Vitamin D Tab*) 5,000 units PO DAILY [facility] Docusate Sodium (Colace Cap*) 100 mg PO BID [facility] Enoxaparin Sodium (Lovenox(*)) 40 mg SUBCUT Q24H [facility] Famotidine (Pepcid Tab*) 20 mg PO DAILY [facility] Folic Acid (Folvite Tab*) 1 mg PO DAILY [facility] Heparin Sodium (Porcine) (Heparin Flush Picc/Ml/Cvc(*)) 1 - 3 ml FLUSH 0600, 1800 [facility] Hydralazine HCl (Apresoline Iv*) 10 mg IV Q4H PRN Losartan Potassium (Cozaar Tab*) 50 mg PO DAILY [facility] Magnesium Oxide (Magox 400 Tab*) 400 mg PO DAILY [facility] Mometasone Furoate/Formoterol Fumar (Dulera 200/5 Mdi*) 2 puff INH BID [facility] Multivitamins/Minerals (Theragran/Minerals Tab*) 1 tab PO DAILY [facility] Nicotine (Nicotine Inhaler*) 10 mg INH Q2H PRN Polyethylene Glycol/Electrolytes (Miralax*) 17 gm PO DAILY [facility] Potassium Chloride (Klor Con Er Tab*) 20 meq PO DAILY [facility] Senna (Senokot Tab*) 2 tab PO BEDTIME PRN Thiamine HCl (Vitamin B-1 Tab*) 100 mg PO DAILY [facility] Vital Signs 10/28/16 10/28/16 10/28/16 14:56 15:42 16:44 Temperature 98.0 F Pulse Rate 97 Respiratory 18 25 18 Rate Blood Pressure 84/59 (mmHg) O2 Sat by Pulse 96 Oximetry 10/28/16 10/28/16 10/28/16 20:00 20:06 21:37 Temperature 98.8 F Pulse Rate 92 89 Respiratory 20 23 20 Rate Blood Pressure 98/67 115/83 (mmHg) O2 Sat by Pulse 95 95 Oximetry 10/28/16 10/29/16 10/29/16 23:37 02:36 03:54 Temperature 98.0 F 97.5 F Pulse Rate 101 100 94 Respiratory 18 20 20 Rate Blood Pressure 107/83 96/65 (mmHg) O2 Sat by Pulse 95 95 95 Oximetry 10/29/16 10/29/16 10/29/16 07:21 07:28 07:29 Temperature 98.5 F Pulse Rate 88 84 Respiratory 23 20 Rate Blood Pressure 99/65 (mmHg) O2 Sat by Pulse 97 Oximetry 10/29/16 10/29/16 07:39 09:28 Temperature Pulse Rate Respiratory 20 18 Rate Blood Pressure (mmHg) O2 Sat by Pulse Oximetry Oxygen Devices in Use Now: Nasal Cannula - 10Lnc Appearance: Male lying in bed in NAD Eyes: No Scleral Icterus Ears/Nose/Mouth/Throat: Mucous Membranes Moist Neck: Trachea Midline Respiratory: Symmetrical Chest Expansion and Respiratory Effort, Clear to Auscultation Cardiovascular: NL Sounds; No Murmurs; No JVD, No Edema Abdominal: NL Sounds; No Tenderness; No Distention Lymphatic: No Cervical Adenopathy Extremities: No Edema Skin: No Rash or Ulcers Neurological: Alert and Oriented x 3, - - R UE weak but much improved from last week, otherwise generalized weakness and poor core strength, unable to sit self up in bed Nutrition: Taking PO's Result Diagrams: 10/29/16 06:50 10/29/16 06:50 Microbiology and Other Data: Microbiology 10/22/16 16:30 Legionella Urinary Antigen - Final Urine Negative Legionella Streptococcus pneumoniae Ag Screen - Final Negative S. pneumo Antigen Assess/Plan/Problems-Billing Assessment: Mr. Brown is a 61 yo male PMH a fib, alcohol abuse, cardiomyopathy and HTN who was admitted on 10/08/16 for alcohol detox but has persistent weakness and confusion with suspected Wernicke's encephalopathy. - Patient Problems (1) Acute respiratory failure with hypoxia Comment: - Resolved. - Secondary to LLL pneumonia, thought to be viral. (2) Wernicke encephalopathy Comment: - Patient alert and oriented but remains weak. - Appreciate neuro consult. - MRI cervical spine shows cervical spondylosis with changes most prominent at C5-C6. MRI brain from 10/17 consistent with Wernicke's. - Completed thiamine (3) Hyponatremia Comment: - Resolved. - Suspect SIADH perhaps related to pneumonia. Low serum osmolality, urine Na 100. - Continue 1200 fluid restriction, sodium chloride tabs stopped on 10/24. (4) Cervical radiculopathy Comment: - Some improvement noted since last week. - With suspected neuropathy. - Appreciate neurology and neurosurgery consults. - Continue cholecalciferol for Vitamin D deficiency to potentially help with neuropathy. Neurology following, other lab work pending (5) Alcohol withdrawal Comment: - Resolved. (6) Alcoholic hepatitis Comment: - Resolved. (7) Hypertension Comment: - Blood pressure very labile, SBP 80-120s. - Continue losartan and carvedilol. (8) Atrial fibrillation Comment: - Rate controlled. - Pt is not anticoagulated at home due to alcoholism and poor functional status. - Continue carvedilol. (9) Thrombocytopenia Comment: - Resolved. (10) Full code status (11) DVT prophylaxis Comment: SQ heparin Status and Disposition: Inpatient. Discharge to [facility].
[2016-10-29 12:35] VITALS: BP 87/58
--- NOTE | 2016-10-29 14:15 | DS ---
CC: Dr. Pino * DISCHARGE SUMMARY: DATE OF ADMISSION: 10/08/16. DATE OF DISCHARGE: 10/29/16. PRIMARY CARE PHYSICIAN: Dr. Pino. ATTENDING PHYSICIAN: Tirso Masterson MD * (dictation provided by Criss Allred NP). PRIMARY DIAGNOSES: 1. Acute encephalopathy. 2. SIADH. 3. Pneumonia. 4. C6 radiculopathy. SECONDARY DIAGNOSES: 1. Hypertension. 2. History of atrial fibrillation. 3. Spinal stenosis. 4. History of cervical spine fracture. 5. History of SVT. 6. History of cardiomyopathy. 7. History of skin cancer. PAST SURGICAL HISTORY: 1. Status post ORIF of his wrist. 2. Status post procedure for his cervical spine fracture. 3. Status post bilateral cataract extractions. 4. Status post excision of moles. MEDICATIONS AT THE TIME OF DISCHARGE: 1. Coreg 12.5 mg oral twice daily. 2. Losartan 50 mg oral daily. 3. Folic acid 1 mg oral daily. 4. Thiamine 100 mg oral daily. 5. Multivitamin 1 tablet oral daily. 6. Tylenol p.r.n. 7. Colace 100 mg p.o. b.i.d. 8. Famotidine 20 mg p.o. daily. 9. Magnesium oxide 400 mg p.o. daily. 10. Mometasone/formoterol 200/5 two puffs inhaled b.i.d. 11. MiraLax 17 g p.o. daily. 12. Potassium chloride 20 mEq p.o. daily. 13. Senna 2 tabs p.o. at bedtime p.r.n. HOSPITAL COURSE: Mr. Brown is a 61-year-old male with past medical history of alcohol abuse and multiple hospitalizations for alcohol withdrawal, who presented on 10/08/16 with request for alcohol detoxification. Please see dictated H and P from Deandra Schmidt for complete details. The patient denied any acute complaints, but simply requested alcohol detoxification. Mr. Brown was admitted to the hospital. He was placed on thiamine, folate and multivitamin supplementation with intravenous fluids and prn benzodiazepines for alcohol withdrawal. By 10/15/16, the patient appeared to have completed his withdrawal process, but was less alert and oriented. This is thought to be secondary to his benzodiazepine administration. A brain MRI was obtained due to the fact that he did not improve with decrease in benzodiazepine usage. Brain MRI was read as follows: "Diffuse involutional change. There is multifocal elevated T2/FLAIR signal in the periventricular and subcortical white matter. These findings +re nonspecific; however, there are some features suggestive of chronic encephalopathy given the history of alcohol abuse. Differential diagnosis includes chronic small vessel ischemia and sequela of previous inflammation." He also had an EEG,which showed "these findings are suggestive of mild diffuse nonspecific encephalopathy." The patient was seen in consultation by Dr. Destini Freeman from Neurology who suspected that the patient had a Wernicke's encephalopathy and recommended IV thiamine administration. The patient was on high-dose thiamin for 3 days. He seemed to improve at times in terms of his mentation, but continued to be significantly weak. This weakness became more pronounced in his right upper extremity and there was suspicion that perhaps this was related to cervical radiculopathy. He had a CT of the cervical spine, which showed "status post anterior spinal fusion at C4-5 level. Moderate diffuse cervical spondylosis as described." The patient was seen by Dr. Sharpe who agreed that this was likely a cervical radiculopathy based on his history of a prior injury to the spine and recommended that the patient go on for cervical spine MRI, which is read as follows: "Status post anterior spinal fusion at the C4-C5 level. Moderate diffuse cervical spondylosis as described with chronic changes, most prominent at the C5-C6 level." On 10/22/16, the patient was noted to have an increased respiratory rate and to be more rhonchorous on pulmonary auscultation. He had a chest x-ray, which showed "small left pleural effusion with left basilar consolidation." He had a new leukocytosis of 13.1 and a low grade fever of 100.2. For these reasons, he was started on Levaquin for suspicion of pneumonia. He had a followup chest x- ray on 10/23/16, which just showed a persistent small left pleural effusion with basilar consolidation. The following morning, despite the addition of Levaquin, he was more tachypneic and requiring a higher oxygen and therefore he was transferred to the ICU for Vapotherm therapy. Mr. Brown did well on Vapotherm therapy. He was seen by Dr. Juárez from the critical care team and switched from Levaquin to Zosyn out of concern for possible nosocomial pneumonia. On 10/25/16, he was off the high-flow O2. Sputum cultures were negative. Blood cultures were negative and it is suspected that perhaps his pneumonia had been related to a viral process given the overall clinical picture. In addition to this episode of pneumonia, the patient did evidence a low sodium. On arrival, his sodium level was 136. By 10/21/16, it had drifted down to 128. It was suspected perhaps he had an SIADH related to his pneumonia. This was supported by the fact that his urine random sodium was 106. The patient was instituted on fluid restriction and sodium chloride tabs and with this his sodium is now back to normal at 134. He has been off the sodium tabs since the 10/24/16. He is now off the sodium tabs and his sodium is now normal, so it is likely that this was brief SIADH related to his pneumonic process. Mr. Brown is doing well today. He is alert and oriented; however, he remains weak. The weakness in his right upper extremity is improved, though it is still significant. He was seen in consultation by LUIS Jain, from Dr. Desai's office and they recommended that there was no need for any urgent surgery, but that he could follow up with them outpatient if the weakness persisted. Mr. Brown is medically stable for discharge. He remains weak and will need rehab and has been accepted to [facility]. DISPOSITION: To [facility]. DIET: Regular. ACTIVITY: As tolerated. FOLLOWUP PLANS: 1. Please follow up with primary care doctor, Dr. Pino at the end of your stay at [facility]. 2. Please consider followup with Dr. Desai regarding radiculopathy. TIME SPENT: Approximately 60 minutes was spent in the discharge of this patient , more than half that time was spent with the patient at the bedside reviewing the events leading up this hospitalization, performing the physical examination , and reviewing the plan of care. CRISS ALLRED NP [id number]/[facility] #: [id number] CARLY
[2016-10-30 16:30] LABS: Albumin 2.4 g/dL (3.4-4.7); Total Protein(PEP) 5.8 g/dL (6.3 - 7.9)
[2016-10-31 16:30] LABS: Lyme Disease IgG Ab WB Negative (Negative)
== END 2016-10-29 13:05 | DRG 775 ==
LOC: ED 09:09 → MED 11:11 → ED 11:44 → OBSVTOIN 10-09 15:30 → ICU 10-23 10:56 → MEDTELE 10-25 15:06 → MED 10-27 10:36
PROVIDERS: ADMIT Internal Medicine; ATTEND Internal Medicine
PROC: 4A00X4Z Measurement of Central Nervous Electrical Activity, External Approach (ICD-10-PCS; principal; 2016-10-17)
DX: F10.239 Alcohol dependence with withdrawal, unspecified (principal); J96.01 Acute respiratory failure with hypoxia; I42.9 Cardiomyopathy, unspecified; E22.2 Syndrome of inappropriate secretion of antidiuretic hormone; J12.9 Viral pneumonia, unspecified; K70.10 Alcoholic hepatitis without ascites; D69.6 Thrombocytopenia, unspecified; I95.9 Hypotension, unspecified; E51.2 Wernicke's encephalopathy; I10 Essential (primary) hypertension; F41.9 Anxiety disorder, unspecified; F17.210 Nicotine dependence, cigarettes, uncomplicated; M47.22 Other spondylosis with radiculopathy, cervical region; M48.00 Spinal stenosis, site unspecified; Y90.8 Blood alcohol level of 240 mg/100 ml or more; I48.2 Chronic atrial fibrillation; G72.9 Myopathy, unspecified; G62.9 Polyneuropathy, unspecified; E83.42 Hypomagnesemia; Y95 Nosocomial condition; Z88.1 Allergy status to other antibiotic agents; Z88.0 Allergy status to penicillin; Z88.8 Allergy status to other drugs, medicaments and biological substances; Z98.42 Cataract extraction status, left eye; Z98.41 Cataract extraction status, right eye; Z85.820 Personal history of malignant melanoma of skin; Z81.1 Family history of alcohol abuse and dependence; Z82.49 Family history of ischemic heart disease and other diseases of the circulatory system; Z83.3 Family history of diabetes mellitus; Z84.89 Family history of other specified conditions; Z98.1 Arthrodesis status
CPT/HCPCS: 36415; 70450; 70551; 71010; 72125; 72141; 80048; 80053; 80307; 80320; 81003; 82140; 82306; 82550; 82553; 82607; 82652; 82746; 82803; 83605; 83690; 83735; 83874; 83880; 83935; 83970; 84133; 84155; 84165; 84300; 84425; 84439; 84443; 84479; 84481; 84484; 85025; 85027; 85610; 85730; 86038; 86140; 86200; 86617; 86618; 87040; 87899; 93005; 94640; 94760; 95819; 95886; 95910; 99406; A9270-GY; G0480; J0360; J0692; J1644; J1650; J2405; J2997

== ENCOUNTER 2020-12-14 10:18 | Inpatient (IN) ==
[2020-12-14 11:23] LABS: ABS Lymphocytes 0.8 10^3/ul (1.0-4.8); ABS Monocytes 0.7 10^3/ul (0-0.8); ABS Neutrophils 3.9 10^3/ul (1.5-7.7); Eosinophil % 0.7 %; Hematocrit 41 % (42-52); Hemoglobin 14.3 g/dL (14.0-18.0); Lymphocyte % 13.9 %; Mean Corpuscular HGB Conc 35 g/dL (31-36); Mean Corpuscular Hemoglobin 35 pg (27-31); Mean Corpuscular Volume 100 fL (80-94); Mean Platelet Volume 8.4 fL (7.4-10.4); Platelet Count 136 10^3/uL (150-450); Red Blood Count 4.09 10^6 /uL (4.18-5.48); Red Cell Distribution Width 14 % (10-15); White Blood Count 5.5 10^3/uL (3.5-10.8)
[2020-12-14 12:15] LABS: Albumin 3.2 g/dL (3.2-5.2); Calcium 8.1 mg/dL (8.6-10.3); EGFR African American 165.8 (>60); Globulin 3.2 g/dL (2-4); Magnesium 1.6 mg/dL (1.9-2.7); Potassium 3.8 mmol/L (3.5-5.0); Total Bilirubin 0.8 mg/dL (0.2-1.0); Total Protein 6.4 g/dL (6.4-8.9)
[2020-12-14] MEDS ORDERED: Lactated Ringers 1000 ml BAG 1,000 ML IV ONE (12:49)
[2020-12-14] MEDS ORDERED: Magnesium Sulfate 2 gm BAG 2 GM/50 ML BAG IVPB ONE (12:49)
[2020-12-14] MEDS: Multivitamins/Minerals TAB PO SCH (15:01)
[2020-12-14] MEDS ORDERED: Enoxaparin 40 MG/0.4 ML SYR SUBCUT SCH (18:00)
[2020-12-14 18:58] LABS: Rapid COVID-19 Molecular Undetected (Undetected)
[2020-12-14] MEDS: Nicotine PATCH 21 MG/24 HR PATCH TRANSDERM SCH (20:26)
[2020-12-15] MEDS: Enoxaparin 40 MG/0.4 ML SYR SUBCUT SCH ×2 (01:36→21:12)
[2020-12-15 06:33] LABS: ALT 49 U/L (7-52); Alkaline Phosphatase 95 U/L (35-149); Blood Urea Nitrogen 2 mg/dL (6-24); CO2 Carbon Dioxide 23 mmol/L (22-32); Calcium 8.1 mg/dL (8.6-10.3); Chloride 102 mmol/L (101-111); EGFR African American 165.8 (>60); Glucose 59 mg/dL (70-100); Sodium 136 mmol/L (135-145)
[2020-12-15 06:40] LABS: ABS Lymphocytes 0.6 10^3/ul (1.0-4.8); ABS Monocytes 0.7 10^3/ul (0-0.8); ABS Neutrophils 6.2 10^3/ul (1.5-7.7); Eosinophil % 0.4 %; Hematocrit 41 % (42-52); Hemoglobin 14.4 g/dL (14.0-18.0); Lymphocyte % 7.3 %; Mean Corpuscular HGB Conc 35 g/dL (31-36); Mean Corpuscular Hemoglobin 35 pg (27-31); Mean Corpuscular Volume 100 fL (80-94); Mean Platelet Volume 9.5 fL (7.4-10.4); Nucleated Red Blood Cells % 0.1; Platelet Count 102 10^3/uL (150-450); Red Blood Count 4.07 10^6 /uL (4.18-5.48); Red Cell Distribution Width 15 % (10-15); White Blood Count 7.5 10^3/uL (3.5-10.8)
[2020-12-15 06:50] LABS: Anion Gap 11 mmol/L (2-11)
[2020-12-15] MEDS: Multivitamins/Minerals TAB PO SCH (08:38)
[2020-12-15] MEDS: Nicotine PATCH 21 MG/24 HR PATCH TRANSDERM SCH (08:45)
[2020-12-15] MEDS ORDERED: Diazepam INJ CARPUJECT 5 MG/ML IV ONE (08:59)
[2020-12-15] MEDS ORDERED: Petrolatum 5 gm PACKET TOPICAL ONE (09:20)
[2020-12-15 10:04] LABS: Magnesium 1.9 mg/dL (1.9-2.7)
[2020-12-15 11:16] LABS: Potassium Redraw 3.7 mmol/L (3.5-5.0)
[2020-12-15] MEDS ORDERED: Potassium Chloride LIQUID 20 MEQ/15 ML LIQUID PO ONE (11:31)
[2020-12-15] MEDS ORDERED: Magnesium Sulfate 2 gm BAG 2 GM/50 ML BAG IVPB ONE (11:50)
[2020-12-15] MEDS ORDERED: Metoprolol Tartrate 5 mg VIAL 5 ml VIAL (1 mg/ml) IV PRN ×2 (12:28→12:50)
[2020-12-15] MEDS ORDERED: Metoprolol Tartrate 5 mg VIAL 5 ml VIAL (1 mg/ml) IV ONE (12:31)
[2020-12-16 07:19] LABS: Calcium 8.1 mg/dL (8.6-10.3); EGFR African American 127.7 (>60); EGFR Non-African American 105.5 (>60); Magnesium 1.9 mg/dL (1.9-2.7); Potassium 3.5 mmol/L (3.5-5.0)
[2020-12-16] MEDS ORDERED: Potassium Chloride LIQUID 20 MEQ/15 ML LIQUID PO ONE (08:22)
[2020-12-16] MEDS: Multivitamins/Minerals TAB PO SCH (08:45)
[2020-12-16] MEDS: Nicotine PATCH 21 MG/24 HR PATCH TRANSDERM SCH (08:47)
[2020-12-16] MEDS ORDERED: Dextran 70/Hypromellose Tears Eye Drops 15 ml BTL (for Artificials Tears) BOTH EYES PRN (09:42)
[2020-12-16] MEDS: Enoxaparin 40 MG/0.4 ML SYR SUBCUT SCH (20:31)
[2020-12-16] MEDS: KCL 10 MEQ/50 ML IVPREMIX 10 MEQ/50 ML BAG IV SCH (23:09)
[2020-12-17] MEDS: KCL 10 MEQ/50 ML IVPREMIX 10 MEQ/50 ML BAG IV SCH (01:35)
[2020-12-17 06:33] LABS: Calcium 8.3 mg/dL (8.6-10.3); EGFR African American 143.2 (>60); EGFR Non-African American 118.3 (>60)
[2020-12-17 08:25] LABS: Magnesium 1.7 mg/dL (1.9-2.7)
[2020-12-17] MEDS: Multivitamins/Minerals TAB PO SCH (10:10)
[2020-12-17] MEDS: Nicotine PATCH 21 MG/24 HR PATCH TRANSDERM SCH (10:11)
[2020-12-17] MEDS ORDERED: Magnesium Sulfate IV 3 GM in NS 0.9% 100 ml BAG 100 ML IVPB ONE (16:29)
[2020-12-17] MEDS: Enoxaparin 40 MG/0.4 ML SYR SUBCUT SCH (20:01)
[2020-12-18] MEDS: Nicotine PATCH 21 MG/24 HR PATCH TRANSDERM SCH (09:30)
[2020-12-18] MEDS: Multivitamins/Minerals TAB PO SCH (09:30)
[2020-12-18 11:49] VITALS: BP 123/88
== END 2020-12-18 13:35 | disposition home or self-care (01) | DRG 775 ==
LOC: ED 10:18 → MED 10:18 → SUATTDRO 20:13 → OBSVTOIN 20:13 → MEDTELE 12-17 03:54
PROVIDERS: ADMIT Internal Medicine; ATTEND Internal Medicine

== ENCOUNTER 2021-09-14 01:53 | Observation (INO) ==
[2021-09-14] MEDS ORDERED: Lactated Ringers 1000 ml BAG 1,000 ML IV ONE (05:23)
[2021-09-14 06:32] LABS: ALT 32 U/L (7-52); AST 38 U/L (13-39); Albumin 3.1 g/dL (3.2-5.2); Albumin/Globulin Ratio 1.2 (1-3); Alcohol, S < 13 mg/dL (<13); Alkaline Phosphatase 67 U/L (35-149); Anion Gap 2 mmol/L (2-11); Blood Urea Nitrogen 7 mg/dL (6-24); C Reactive Protein 19.14 mg/L (<8.01); CO2 Carbon Dioxide 31 mmol/L (22-32); Calcium 9.1 mg/dL (8.6-10.3); Chloride 99 mmol/L (101-111); Globulin 2.6 g/dL (2-4); Glucose 87 mg/dL (70-100); High Sens Troponin Baseline 9 pg/mL (<20); Magnesium 1.5 mg/dL (1.9-2.7); Potassium 4.3 mmol/L (3.5-5.0); Sodium 132 mmol/L (135-145); Total Protein 5.7 g/dL (6.4-8.9); eGFR CKD-EPI 99.3 (>60)
[2021-09-14 06:33] LABS: INR 1.12 (0.86-1.15)
[2021-09-14 06:34] LABS: ABS Lymphocytes 0.9 10^3/ul (1.0-4.8); ABS Monocytes 1.2 10^3/ul (0-0.8); ABS Neutrophils 4.8 10^3/ul (1.5-7.7); Hematocrit 42 % (42-52); Mean Corpuscular HGB Conc 33 g/dL (31-36); Mean Corpuscular Hemoglobin 34 pg (27-31); Mean Corpuscular Volume 103 fL (80-94); Mean Platelet Volume 9.8 fL (7.4-10.4); Platelet Count 149 10^3/uL (150-450); Red Cell Distribution Width 14 % (10-15); White Blood Count 7.1 10^3/uL (3.5-10.8)
[2021-09-14 06:35] LABS: ABS Eosinophils 0.1 10^3/ul (0-0.6); Eosinophil % 1.4 %; Lymphocyte % 12.7 %
[2021-09-14] MEDS ORDERED: Magnesium Sulfate 2 gm BAG 2 GM/50 ML BAG IVPB ONE (07:16)
[2021-09-14] MEDS ORDERED: Magnesium Sulfate IV 1GM/100ML 1 GM/100 ML BAG IV ONE (11:24)
[2021-09-14] MEDS ORDERED: Multivitamins/Minerals TAB PO ONE (11:40)
[2021-09-14] MEDS: Nystatin TOP POWDER 15 GM BTL TOPICAL SCH (20:41)
[2021-09-15 06:11] LABS: ABS Eosinophils 0.2 10^3/ul (0-0.6); ABS Lymphocytes 1.1 10^3/ul (1.0-4.8); ABS Neutrophils 3.5 10^3/ul (1.5-7.7); Eosinophil % 3.4 %; Hematocrit 42 % (42-52); Hemoglobin 14.2 g/dL (14.0-18.0); Lymphocyte % 19.1 %; Mean Corpuscular HGB Conc 34 g/dL (31-36); Mean Corpuscular Hemoglobin 35 pg (27-31); Mean Corpuscular Volume 102 fL (80-94); Mean Platelet Volume 9.3 fL (7.4-10.4); Nucleated Red Blood Cells % 0.1; Platelet Count 141 10^3/uL (150-450); Red Blood Count 4.09 10^6 /uL (4.18-5.48); Red Cell Distribution Width 14 % (10-15); White Blood Count 5.9 10^3/uL (3.5-10.8)
[2021-09-15 06:26] LABS: Potassium 3.6 mmol/L (3.5-5.0)
[2021-09-15 06:27] LABS: Calcium 8.7 mg/dL (8.6-10.3); eGFR CKD-EPI 107.5 (>60)
[2021-09-15] MEDS: Multivitamins/Minerals TAB PO SCH (07:47)
[2021-09-15] MEDS: Nystatin TOP POWDER 15 GM BTL TOPICAL SCH ×3 (07:48→20:17)
[2021-09-15] MEDS ORDERED: Potassium Chlor 20 meq TAB.ER PO ONE (13:54)
[2021-09-16 05:17] LABS: ABS Eosinophils 0.1 10^3/ul (0-0.6); ABS Lymphocytes 0.9 10^3/ul (1.0-4.8); ABS Neutrophils 3.5 10^3/ul (1.5-7.7); Eosinophil % 2.6 %; Hematocrit 39 % (42-52); Hemoglobin 13.1 g/dL (14.0-18.0); Mean Corpuscular HGB Conc 34 g/dL (31-36); Mean Corpuscular Hemoglobin 35 pg (27-31); Mean Corpuscular Volume 102 fL (80-94); Mean Platelet Volume 9.3 fL (7.4-10.4); Nucleated Red Blood Cells % 0.1; Platelet Count 173 10^3/uL (150-450); Red Blood Count 3.81 10^6 /uL (4.18-5.48); Red Cell Distribution Width 14 % (10-15); White Blood Count 5.6 10^3/uL (3.5-10.8)
[2021-09-16 05:54] LABS: Magnesium 1.7 mg/dL (1.9-2.7); Potassium 3.8 mmol/L (3.5-5.0); eGFR CKD-EPI 103.3 (>60)
[2021-09-16 07:40] VITALS: BP 121/93
[2021-09-16] MEDS ORDERED: Potassium Chlor 20 meq TAB.ER PO ONE (08:35)
[2021-09-16] MEDS: Multivitamins/Minerals TAB PO SCH (09:29)
[2021-09-16] MEDS: Nystatin TOP POWDER 15 GM BTL TOPICAL SCH (09:30)
== END 2021-09-16 11:50 | disposition home or self-care (01) ==
LOC: ED 01:53 → EDHOLD 01:53 → MEDTELE 14:57
PROVIDERS: ADMIT Student in an Organized Health Care Education/Training Program; ATTEND Student in an Organized Health Care Education/Training Program

== ENCOUNTER 2022-02-23 02:50 | Inpatient (IN) ==
[2022-02-23 03:51] LABS: Hematocrit 39 % (42-52); Hemoglobin 13.4 g/dL (14.0-18.0); Mean Corpuscular HGB Conc 34 g/dL (31-36); Mean Corpuscular Hemoglobin 35 pg (27-31); Mean Corpuscular Volume 101 fL (80-94); Mean Platelet Volume 8.3 fL (7.4-10.4); Platelet Count 183 10^3/uL (150-450); Red Blood Count 3.86 10^6 /uL (4.18-5.48); Red Cell Distribution Width 13 % (10-15); White Blood Count 12.8 10^3/uL (3.5-10.8)
[2022-02-23 04:28] LABS: ABS Eosinophils 0.1 10^3/ul (0-0.6); ABS Lymphocytes 1.2 10^3/ul (1.0-4.8); ABS Monocytes 1.5 10^3/ul (0-0.8); ABS Neutrophils 10.1 10^3/ul (1.5-7.7); Eosinophil % 0.7 %; Lymphocyte % 9.4 %
[2022-02-23 04:39] LABS: Albumin/Globulin Ratio 1.2 (1-3); Calcium 7.9 mg/dL (8.6-10.3); Globulin 2.5 g/dL (2-4); Magnesium 1.3 mg/dL (1.9-2.7); Potassium 3.7 mmol/L (3.5-5.0); Total Bilirubin 1.6 mg/dL (0.2-1.0); Total Protein 5.5 g/dL (6.4-8.9); eGFR CKD-EPI 127.1 (>60)
[2022-02-23] MEDS ORDERED: Magnesium Sulfate 2 gm BAG 2 GM/50 ML BAG IVPB ONE ×2 (04:40→05:02)
[2022-02-23] MEDS ORDERED: NS 0.9% 1000 ml BAG 1,000 ML IV SCH (05:00)
[2022-02-23] MEDS ORDERED: LORazepam 2 mg VIAL 1 ml IV PUSH SCH (05:00)
[2022-02-23] MEDS: Enoxaparin 40 MG/0.4 ML SYR SUBCUT SCH (06:51)
[2022-02-23] MEDS: Multivitamins/Minerals TAB PO SCH ×2 (06:53→08:01)
[2022-02-23 08:09] LABS: Calcium 8.5 mg/dL (8.6-10.3); Magnesium 2.4 mg/dL (1.9-2.7); Potassium 3.6 mmol/L (3.5-5.0); eGFR CKD-EPI 121.7 (>60)
[2022-02-23] MEDS ORDERED: Lorazepam PYXIS KEY PRN (09:43)
[2022-02-23] MEDS ORDERED: LORazepam 2 mg VIAL 1 ml IV PUSH PRN (09:43)
[2022-02-23] MEDS ORDERED: KCL 20 MEQ/100 ML IVPREMIX 20 MEQ/100 ML BAG IV ONE (10:29)
[2022-02-23 14:26] LABS: Blood Urea Nitrogen 5 mg/dL (6-24); CO2 Carbon Dioxide 31 mmol/L (22-32); Chloride 85 mmol/L (101-111); Glucose 78 mg/dL (70-100); eGFR CKD-EPI 128.4 (>60)
[2022-02-23 15:17] LABS: Anion Gap 3 mmol/L (2-11); Sodium 119 mmol/L (135-145)
[2022-02-24 01:50] LABS: Potassium 3.7 mmol/L (3.5-5.0); eGFR CKD-EPI 105.7 (>60)
[2022-02-24] MEDS ORDERED: D5W 500 ml BAG 500 ML IV SCH (04:00)
[2022-02-24] MEDS: Enoxaparin 40 MG/0.4 ML SYR SUBCUT SCH (06:00)
[2022-02-24 06:48] LABS: ABS Monocytes 1.1 10^3/ul (0-0.8); ABS Neutrophils 5.8 10^3/ul (1.5-7.7); Eosinophil % 0.3 %; Hematocrit 34 % (42-52); Hemoglobin 12.1 g/dL (14.0-18.0); Lymphocyte % 12.9 %; Mean Corpuscular HGB Conc 35 g/dL (31-36); Mean Corpuscular Hemoglobin 36 pg (27-31); Mean Corpuscular Volume 102 fL (80-94); Mean Platelet Volume 8.2 fL (7.4-10.4); Platelet Count 173 10^3/uL (150-450); Red Blood Count 3.37 10^6 /uL (4.18-5.48); Red Cell Distribution Width 13 % (10-15); White Blood Count 7.9 10^3/uL (3.5-10.8)
[2022-02-24] MEDS ORDERED: KCL 20 MEQ/100 ML IVPREMIX 20 MEQ/100 ML BAG IV ONE ×2 (07:20→09:30)
[2022-02-24 07:24] LABS: Calcium 8.1 mg/dL (8.6-10.3); Magnesium 1.9 mg/dL (1.9-2.7); Potassium 3.4 mmol/L (3.5-5.0); eGFR CKD-EPI 114.7 (>60)
[2022-02-24] MEDS ORDERED: Magnesium Sulfate IV 1GM/100ML 1 GM/100 ML BAG IV ONE (07:27)
[2022-02-24] MEDS: Multivitamins/Minerals TAB PO SCH (08:09)
[2022-02-25 04:27] LABS: ABS Basophils 0.1 10^3/ul (0-0.2); ABS Eosinophils 0.1 10^3/ul (0-0.6); ABS Lymphocytes 1.6 10^3/ul (1.0-4.8); ABS Monocytes 1.2 10^3/ul (0-0.8); ABS Neutrophils 5.3 10^3/ul (1.5-7.7); Eosinophil % 0.7 %; Hematocrit 33 % (42-52); Hemoglobin 11.4 g/dL (14.0-18.0); Lymphocyte % 19.3 %; Mean Corpuscular HGB Conc 34 g/dL (31-36); Mean Corpuscular Hemoglobin 35 pg (27-31); Mean Corpuscular Volume 103 fL (80-94); Mean Platelet Volume 8.1 fL (7.4-10.4); Platelet Count 176 10^3/uL (150-450); Red Blood Count 3.24 10^6 /uL (4.18-5.48); Red Cell Distribution Width 13 % (10-15); White Blood Count 8.2 10^3/uL (3.5-10.8)
[2022-02-25 05:12] LABS: Calcium 8.2 mg/dL (8.6-10.3); Magnesium 1.7 mg/dL (1.9-2.7); Potassium 3.8 mmol/L (3.5-5.0); eGFR CKD-EPI 123.7 (>60)
[2022-02-25] MEDS: Enoxaparin 40 MG/0.4 ML SYR SUBCUT SCH ×2 (05:44→05:52)
[2022-02-25] MEDS: Multivitamins/Minerals TAB PO SCH (09:52)
[2022-02-25] MEDS: Multivitamins ADULT w/MIN LIQ 15 ML UDC PO SCH (10:13)
[2022-02-25] MEDS ORDERED: Magnesium Sulfate 2 gm BAG 2 GM/50 ML BAG IVPB ONE (15:18)
[2022-02-25] MEDS: Ciprofloxacin 0.3% OPTH.SOL 5 ML BTL BOTH EYES SCH (20:06)
[2022-02-26] MEDS: Enoxaparin 40 MG/0.4 ML SYR SUBCUT SCH (05:58)
[2022-02-26 07:18] LABS: Calcium 8.4 mg/dL (8.6-10.3); Magnesium 1.7 mg/dL (1.9-2.7); Potassium 3.2 mmol/L (3.5-5.0); eGFR CKD-EPI 120.7 (>60)
[2022-02-26] MEDS ORDERED: Potassium Chlor 20 meq TAB.ER PO ONE (08:14)
[2022-02-26] MEDS ORDERED: Magnesium Sulfate IV 1GM/100ML 1 GM/100 ML BAG IV ONE (08:14)
[2022-02-26] MEDS: Multivitamins ADULT w/MIN LIQ 15 ML UDC PO SCH (11:00)
[2022-02-26] MEDS: Ciprofloxacin 0.3% OPTH.SOL 5 ML BTL BOTH EYES SCH ×2 (11:00→21:57)
[2022-02-26 12:13] LABS: C Reactive Protein 20.22 mg/L (<8.01)
[2022-02-27] MEDS: Enoxaparin 40 MG/0.4 ML SYR SUBCUT SCH (05:29)
[2022-02-27 07:37] LABS: Calcium 8.9 mg/dL (8.6-10.3); Potassium 3.5 mmol/L (3.5-5.0)
[2022-02-27] MEDS: Multivitamins ADULT w/MIN LIQ 15 ML UDC PO SCH (09:54)
[2022-02-27] MEDS: Ciprofloxacin 0.3% OPTH.SOL 5 ML BTL BOTH EYES SCH (09:59)
[2022-02-27 10:16] LABS: Magnesium 1.6 mg/dL (1.9-2.7)
[2022-02-27 10:22] LABS: eGFR CKD-EPI 107.9 (>60)
[2022-02-27] MEDS ORDERED: Magnesium Sulfate 2 gm BAG 2 GM/50 ML BAG IVPB ONE (11:23)
[2022-02-28] MEDS: Enoxaparin 40 MG/0.4 ML SYR SUBCUT SCH (05:04)
[2022-02-28] MEDS: Multivitamins ADULT w/MIN LIQ 15 ML UDC PO SCH (09:59)
[2022-03-01] MEDS: Enoxaparin 40 MG/0.4 ML SYR SUBCUT SCH (06:16)
[2022-03-01] MEDS ORDERED: Magnesium Sulfate IV 3 GM in NS 0.9% 100 ml BAG 100 ML IVPB ONE (07:24)
[2022-03-01] MEDS: Multivitamins ADULT w/MIN LIQ 15 ML UDC PO SCH (09:59)
[2022-03-02] MEDS: Enoxaparin 40 MG/0.4 ML SYR SUBCUT SCH (06:58)
[2022-03-02 07:34] VITALS: BP 136/88
[2022-03-02] MEDS: Multivitamins ADULT w/MIN LIQ 15 ML UDC PO SCH (09:17)
[2022-03-02 11:20] LABS: Rapid COVID-19 Molecular Undetected (Undetected)
== END 2022-03-02 13:55 | DRG 425 ==
LOC: ED 02:50 → SUATTDRO 05:11 → EDHOLD 05:11 → ICU 06:25 → MEDTELE 02-25 16:43
PROVIDERS: ADMIT Internal Medicine; ATTEND Internal Medicine

== ENCOUNTER 2023-08-12 | Observation (INO) ==
[2023-08-12] MEDS: Lactated Ringers 1000 ml BAG 1,000 ML IV ONE ×3 (01:40→05:55)
[2023-08-12 01:49] LABS: ABS Lymphocytes 0.9 10^3/uL (1.0-4.8); ABS Monocytes 0.8 10^3/uL (0.0-1.1); ABS Neutrophils 7.3 10^3/uL (1.5-7.6); Eosinophil % 0.2 %; Hematocrit 49.5 % (38-53); Hemoglobin 17.1 g/dL (13.2-16.3); Lymphocyte % 10.2 %; Mean Corpuscular Hemoglobin 34.1 pg (27-33); Mean Corpuscular Hgb Conc 34.6 g/dL (31-36); Mean Corpuscular Volume 98.5 fL (80-97); Mean Platelet Volume 8.3 fL (7.5-11.2); Platelet Count 170 10^3/uL (150-450); Red Blood Count 5.03 10^6/uL (4.06-5.63); Red Cell Distribution Width 14.3 % (12-17)
[2023-08-12 01:55] LABS: INR 1.1 (0.83-1.13)
[2023-08-12] MEDS: Multivitamins/Minerals TAB PO SCH (02:12)
[2023-08-12] MEDS: Thiamine 100 MG/ML 2 ml VIAL (200 mg) IM ONE (02:13)
[2023-08-12 02:19] LABS: Albumin 3.5 g/dL (3.2-5.2); Albumin/Globulin Ratio 1.1 (1-3); Calcium 8.7 mg/dL (8.6-10.3); Creatinine, Serum 0.47 mg/dL (0.67-1.17); Globulin 3.1 g/dL (2-4); Potassium 3.7 mmol/L (3.5-5.0); Total Bilirubin 0.7 mg/dL (0.2-1.0); Total Protein 6.6 g/dL (6.4-8.9); eGFR CKD-EPI 112.5 (>60)
[2023-08-12 02:41] LABS: Urine Appearance Clear; Urine Bilirubin Negative (Negative); Urine Blood Negative (Negative); Urine Color Colorless; Urine Glucose Negative (Negative); Urine Ketones Negative (Negative); Urine Nitrite Negative (Negative); Urine Protein Negative (Negative); Urine Specific Gravity 1.002 (1.002-1.030); Urine Urobilinogen Negative (Negative); Urine pH 5.5 (5.0-8.0)
[2023-08-12 02:53] LABS: Urine Benzodiazepine Screen None Detected (None Detect); Urine Cannabinoids Screen None Detected (None Detect); Urine Opiates Screen None Detected (None Detect)
[2023-08-12 03:17] LABS: High Sensitivity Troponin 1 Hr 15 pg/mL (<20)
[2023-08-12] MEDS: Enoxaparin 40 MG/0.4 ML SYR SUBCUT SCH (09:27)
[2023-08-12] MEDS: Nicotine GUM 2MG FRUIT FLAVOR PO PRN (22:23)
[2023-08-12] MEDS: Nicotine PATCH 21 MG/24 HR PATCH TRANSDERM SCH (22:33)
[2023-08-13] MEDS: Nicotine Lozenge mini 2 MG LOZNG.MINI MT PRN (20:18)
[2023-08-14 06:02] LABS: ABS Eosinophils 0.1 10^3/uL (0.0-0.5); ABS Lymphocytes 1.4 10^3/uL (1.0-4.8); ABS Monocytes 0.9 10^3/uL (0.0-1.1); ABS Neutrophils 4.8 10^3/uL (1.5-7.6); Eosinophil % 1.8 %; Hematocrit 40.1 % (38-53); Hemoglobin 13.7 g/dL (13.2-16.3); Lymphocyte % 19.4 %; Mean Corpuscular Hemoglobin 33.7 pg (27-33); Mean Corpuscular Hgb Conc 34.2 g/dL (31-36); Mean Corpuscular Volume 98.5 fL (80-97); Mean Platelet Volume 9.1 fL (7.5-11.2); Platelet Count 105 10^3/uL (150-450); Red Blood Count 4.07 10^6/uL (4.06-5.63); Red Cell Distribution Width 14.2 % (12-17); White Blood Count 7.2 10^3/uL (3.6-10.2)
[2023-08-14 06:33] LABS: Calcium 8.4 mg/dL (8.6-10.3); Creatinine, Serum 0.55 mg/dL (0.67-1.17); eGFR CKD-EPI 107.3 (>60)
[2023-08-14] MEDS: Potassium Chlor 20 meq TAB.ER PO ONE (10:45)
[2023-08-14 14:46] VITALS: BP 153/70
== END 2023-08-14 16:32 | disposition home or self-care (01) ==
LOC: ED → SUATTDRO 08:41 → EDHOLD 08:41 → INTOOBSV 08:41 → MEDTELE 09:29
PROVIDERS: ADMIT Hospitalist; ATTEND Internal Medicine

== ENCOUNTER 2023-08-31 08:16 | Inpatient (IN) ==
[2023-08-31] MEDS ORDERED: LORazepam 2 mg VIAL 1 ml IV PUSH SCH (09:00)
[2023-08-31 09:10] LABS: ABS Lymphocytes 0.8 10^3/uL (1.0-4.8); ABS Monocytes 0.8 10^3/uL (0.0-1.1); ABS Neutrophils 8.3 10^3/uL (1.5-7.6); Eosinophil % 0.1 %; Hematocrit 43.4 % (38-53); Hemoglobin 14.9 g/dL (13.2-16.3); Lymphocyte % 8.3 %; Mean Corpuscular Hemoglobin 33.5 pg (27-33); Mean Corpuscular Hgb Conc 34.4 g/dL (31-36); Mean Corpuscular Volume 97.5 fL (80-97); Mean Platelet Volume 8.2 fL (7.5-11.2); Platelet Count 215 10^3/uL (150-450); Red Blood Count 4.46 10^6/uL (4.06-5.63)
[2023-08-31] MEDS: Acetaminophen IV 1 GM/100ML 1,000 MG/100 ML BAG IV ONE (09:25)
[2023-08-31 09:34] LABS: INR 1.06 (0.83-1.13)
[2023-08-31] MEDS: diazePAM INJ CARPUJECT 5 MG/ML SYRINGE IV ONE (09:36)
[2023-08-31 09:41] LABS: High Sens Troponin Baseline 22 pg/mL (<20)
[2023-08-31 09:52] LABS: ALT 29 U/L (7-52); Albumin 3.5 g/dL (3.2-5.2); Albumin/Globulin Ratio 1.1 (1-3); Alcohol, S 136 mg/dL (<13); Alkaline Phosphatase 124 U/L (35-149); Blood Urea Nitrogen 2 mg/dL (6-24); CO2 Carbon Dioxide 29 mmol/L (22-32); Calcium 8.8 mg/dL (8.6-10.3); Chloride 92 mmol/L (101-111); Creatine Kinase 567 U/L (10-223); Creatinine, Serum 0.51 mg/dL (0.67-1.17); Globulin 3.2 g/dL (2-4); Glucose 96 mg/dL (70-100); Lipase 22 U/L (11.0-82.0); Magnesium 1.5 mg/dL (1.9-2.7); Sodium 133 mmol/L (135-145); Total Protein 6.7 g/dL (6.4-8.9); eGFR CKD-EPI 109.8 (>60)
[2023-08-31 09:54] LABS: Anion Gap 12 mmol/L (2-16)
[2023-08-31] MEDS: Thiamine 100 MG/ML 2 ml VIAL 100 MG, Folic Acid IV 1 MG, Multiple Vitamin IV ADULT 10 M... IV ONE (10:06)
[2023-08-31 10:30] LABS: Urine Appearance Clear; Urine Bilirubin Negative (Negative); Urine Blood Negative (Negative); Urine Color Colorless; Urine Ketones Negative (Negative); Urine Nitrite Negative (Negative); Urine Protein Negative (Negative); Urine Specific Gravity 1.005 (1.002-1.030); Urine Urobilinogen Negative (Negative)
[2023-08-31 10:31] LABS: Urine Glucose Negative (Negative)
[2023-08-31 10:52] LABS: Urine Benzodiazepine Screen Presumptive Positive (None Detect); Urine Cannabinoids Screen None Detected (None Detect); Urine Opiates Screen None Detected (None Detect)
[2023-08-31 11:37] LABS: Potassium Redraw 3.2 mmol/L (3.5-5.0)
[2023-08-31] MEDS: Magnesium Sulfate 2 gm BAG 2 GM/50 ML BAG IVPB ONE (12:29)
[2023-08-31] MEDS ORDERED: Ondansetron 4 mg VIAL 2 MG/ML 2 ml VIAL IV PRN (13:43)
[2023-08-31] MEDS: Nystatin TOP POWDER 15 GM BTL TOPICAL SCH (20:04)
[2023-08-31] MEDS: Enoxaparin 40 MG/0.4 ML SYR SUBCUT SCH (22:50)
[2023-09-01] MEDS: Multivitamins/Minerals TAB PO SCH (09:00)
[2023-09-01] MEDS: Dextran 70/Hypromellose Tears Eye Drops 15 ml BTL (for Artificials Tears) BOTH EYES PRN (21:29)
[2023-09-02 16:53] LABS: Blood Urea Nitrogen 13 mg/dL (6-24); CO2 Carbon Dioxide 26 mmol/L (22-32); Calcium 8.8 mg/dL (8.6-10.3); Chloride 99 mmol/L (101-111); Glucose 107 mg/dL (70-100); Sodium 136 mmol/L (135-145); eGFR CKD-EPI 95.8 (>60)
[2023-09-02 17:31] LABS: Anion Gap 11 mmol/L (2-16)
[2023-09-02 19:29] LABS: Calcium 8.6 mg/dL (8.6-10.3); Creatinine, Serum 0.75 mg/dL (0.67-1.17); Magnesium 1.5 mg/dL (1.9-2.7); eGFR CKD-EPI 97.7 (>60)
[2023-09-02] MEDS: Potassium Chlor 20 meq TAB.ER PO ONE (21:20)
[2023-09-02] MEDS: Magnesium Sulfate 2 gm BAG 2 GM/50 ML BAG IVPB ONE (22:18)
[2023-09-02] MEDS: Nicotine Lozenge mini 4 MG LOZNG.MINI MT PRN (23:24)
[2023-09-02] MEDS: Magnesium Sulfate IV 1GM/100ML 1 GM/100 ML BAG IV ONE (23:24)
[2023-09-03] MEDS: KCL 20 MEQ/100 ML IVPREMIX 20 MEQ/100 ML BAG IV SCH (00:20)
[2023-09-03 09:18] LABS: Calcium 8.5 mg/dL (8.6-10.3); Creatinine, Serum 0.51 mg/dL (0.67-1.17); Magnesium 1.8 mg/dL (1.9-2.7); Potassium 3.6 mmol/L (3.5-5.0); eGFR CKD-EPI 109.8 (>60)
[2023-09-03] MEDS: Magnesium Sulfate 2 gm BAG 2 GM/50 ML BAG IVPB ONE (10:56)
[2023-09-03] MEDS: Potassium Chlor 20 meq TAB.ER PO ONE (10:59)
[2023-09-03 13:13] VITALS: BP 140/97
== END 2023-09-03 15:10 | disposition home or self-care (01) | DRG 897 ==
LOC: ED 08:16 → EDHOLD 08:16 → MEDTELE 14:55
PROVIDERS: ADMIT Hospitalist; ATTEND Internal Medicine

== ENCOUNTER 2023-09-05 22:40 | Inpatient (IN) ==
[2023-09-06 03:18] LABS: ABS Lymphocytes 0.8 10^3/uL (1.0-4.8); ABS Monocytes 1.5 10^3/uL (0.0-1.1); ABS Neutrophils 8.7 10^3/uL (1.5-7.6); ABS Nucleated RBC 0.01 10^3/ul; Eosinophil % 0.2 %; Hematocrit 42.4 % (38-53); Hemoglobin 14.8 g/dL (13.2-16.3); Lymphocyte % 7.4 %; Mean Corpuscular Hemoglobin 33.9 pg (27-33); Mean Corpuscular Volume 96.9 fL (80-97); Mean Platelet Volume 9.3 fL (7.5-11.2); Nucleated Red Blood Cells % 0.1 %/100WBC (0.0-0.8); Platelet Count 197 10^3/uL (150-450); Red Blood Count 4.37 10^6/uL (4.06-5.63); Red Cell Distribution Width 13.6 % (12-17); White Blood Count 11.1 10^3/uL (3.6-10.2)
[2023-09-06 03:30] LABS: High Sens Troponin Baseline 17 pg/mL (<20)
[2023-09-06 04:24] LABS: ALT 26 U/L (7-52); AST 44 U/L (13-39); Albumin 3.8 g/dL (3.2-5.2); Albumin/Globulin Ratio 1.1 (1-3); Alcohol, S < 13 mg/dL (<13); Alkaline Phosphatase 115 U/L (35-149); Anion Gap 10 mmol/L (2-16); Blood Urea Nitrogen 5 mg/dL (6-24); C Reactive Protein 48.16 mg/L (<8.01); CO2 Carbon Dioxide 29 mmol/L (22-32); Calcium 9.3 mg/dL (8.6-10.3); Chloride 79 mmol/L (101-111); Creatinine, Serum 0.57 mg/dL (0.67-1.17); Globulin 3.4 g/dL (2-4); Glucose 75 mg/dL (70-100); Potassium 3.7 mmol/L (3.5-5.0); Sodium 118 mmol/L (135-145); Total Protein 7.2 g/dL (6.4-8.9); eGFR CKD-EPI 106.1 (>60)
[2023-09-06 04:50] LABS: High Sensitivity Troponin 1 Hr 18 pg/mL (<20)
[2023-09-06 06:42] LABS: Magnesium 1.3 mg/dL (1.9-2.7)
[2023-09-06 06:49] LABS: Urine Appearance Clear; Urine Bilirubin Negative (Negative); Urine Blood Negative (Negative); Urine Glucose Negative (Negative); Urine Ketones Negative (Negative); Urine Nitrite Negative (Negative); Urine Protein Trace (Negative); Urine Specific Gravity 1.015 (1.002-1.030); Urine Urobilinogen 1+ (Negative)
[2023-09-06 07:30] LABS: Urine Color Dark-Yellow
[2023-09-06 07:33] LABS: Urine Osmo 329 mOsm/kg (150-1150)
[2023-09-06 07:34] LABS: Creatine Kinase 171 U/L (10-223)
[2023-09-06 07:59] LABS: Osmolality Serum 243 mOsm/kg (275-295)
[2023-09-06] MEDS: Enoxaparin 40 MG/0.4 ML SYR SUBCUT SCH (09:35)
[2023-09-06] MEDS: Multivitamins/Minerals TAB PO SCH (09:43)
[2023-09-07 10:55] LABS: ABS Basophils 0.1 10^3/uL (0.0-0.1); ABS Lymphocytes 0.6 10^3/uL (1.0-4.8); ABS Monocytes 1.3 10^3/uL (0.0-1.1); ABS Neutrophils 6.3 10^3/uL (1.5-7.6); Eosinophil % 0.3 %; Hematocrit 38.8 % (38-53); Hemoglobin 13.2 g/dL (13.2-16.3); Lymphocyte % 7.5 %; Mean Corpuscular Hemoglobin 33.4 pg (27-33); Mean Corpuscular Hgb Conc 34.1 g/dL (31-36); Mean Corpuscular Volume 97.8 fL (80-97); Mean Platelet Volume 8.8 fL (7.5-11.2); Platelet Count 196 10^3/uL (150-450); Red Blood Count 3.97 10^6/uL (4.06-5.63); Red Cell Distribution Width 13.7 % (12-17); White Blood Count 8.3 10^3/uL (3.6-10.2)
[2023-09-07] MEDS: Potassium Chlor 20 meq TAB.ER PO ONE ×2 (11:06→14:49)
[2023-09-07] MEDS: Magnesium Sulf 4 GM/100 ML IV 4,000 MG/100 ML BAG IVPB ONE (11:06)
[2023-09-07 11:32] LABS: Albumin/Globulin Ratio 1.2 (1-3); Calcium 8.6 mg/dL (8.6-10.3); Creatinine, Serum 0.52 mg/dL (0.67-1.17); Globulin 2.5 g/dL (2-4); Magnesium 1.6 mg/dL (1.9-2.7); Potassium 3.2 mmol/L (3.5-5.0); Total Bilirubin 0.9 mg/dL (0.2-1.0); Total Protein 5.5 g/dL (6.4-8.9); eGFR CKD-EPI 109.1 (>60)
[2023-09-07] MEDS: Magnesium Sulfate IV 1GM/100ML 1 GM/100 ML BAG IV ONE (14:46)
[2023-09-07] MEDS: Magnesium Sulfate 2 gm BAG 2 GM/50 ML BAG IVPB ONE (14:49)
[2023-09-08 08:03] LABS: ABS Monocytes 1.1 10^3/uL (0.0-1.1); ABS Neutrophils 3.8 10^3/uL (1.5-7.6); ABS Nucleated RBC 0.01 10^3/ul; Albumin/Globulin Ratio 1.2 (1-3); Calcium 8.6 mg/dL (8.6-10.3); Creatinine, Serum 0.54 mg/dL (0.67-1.17); Eosinophil % 0.6 %; Globulin 2.5 g/dL (2-4); Hematocrit 39.3 % (38-53); Lymphocyte % 17.3 %; Magnesium 1.9 mg/dL (1.9-2.7); Mean Corpuscular Hemoglobin 34.4 pg (27-33); Mean Corpuscular Hgb Conc 33.1 g/dL (31-36); Mean Corpuscular Volume 103.8 fL (80-97); Mean Platelet Volume 8.4 fL (7.5-11.2); Nucleated Red Blood Cells % 0.1 %/100WBC (0.0-0.8); Platelet Count 199 10^3/uL (150-450); Potassium 3.8 mmol/L (3.5-5.0); Red Blood Count 3.78 10^6/uL (4.06-5.63); Red Cell Distribution Width 14.6 % (12-17); Total Bilirubin 0.9 mg/dL (0.2-1.0); Total Protein 5.5 g/dL (6.4-8.9); eGFR CKD-EPI 107.9 (>60)
[2023-09-08] MEDS: Potassium Chlor 20 meq TAB.ER PO ONE (11:48)
[2023-09-09] MEDS: Nicotine GUM 4MG FRUIT FLAVOR PO ONE (00:02)
[2023-09-09 06:09] LABS: ABS Basophils 0.1 10^3/uL (0.0-0.1); ABS Eosinophils 0.1 10^3/uL (0.0-0.5); ABS Lymphocytes 1.6 10^3/uL (1.0-4.8); ABS Monocytes 1.2 10^3/uL (0.0-1.1); ABS Neutrophils 3.7 10^3/uL (1.5-7.6); Eosinophil % 1.8 %; Hematocrit 35.5 % (38-53); Hemoglobin 12.1 g/dL (13.2-16.3); Lymphocyte % 24.7 %; Mean Corpuscular Hemoglobin 33.8 pg (27-33); Mean Corpuscular Hgb Conc 34.1 g/dL (31-36); Mean Corpuscular Volume 99.1 fL (80-97); Mean Platelet Volume 8.4 fL (7.5-11.2); Nucleated Red Blood Cells % 0.1 %/100WBC (0.0-0.8); Platelet Count 239 10^3/uL (150-450); Red Blood Count 3.59 10^6/uL (4.06-5.63); Red Cell Distribution Width 14.1 % (12-17); White Blood Count 6.7 10^3/uL (3.6-10.2)
[2023-09-09 06:36] LABS: Albumin/Globulin Ratio 1.2 (1-3); Calcium 8.7 mg/dL (8.6-10.3); Creatinine, Serum 0.55 mg/dL (0.67-1.17); Globulin 2.5 g/dL (2-4); Magnesium 1.7 mg/dL (1.9-2.7); Total Bilirubin 0.8 mg/dL (0.2-1.0); Total Protein 5.5 g/dL (6.4-8.9); eGFR CKD-EPI 107.3 (>60)
[2023-09-10] MEDS: Acetaminophen IV 1 GM/100ML 1,000 MG/100 ML BAG IV PRN (01:16)
[2023-09-10 13:46] VITALS: BP 120/91
== END 2023-09-10 14:33 | DRG 425 ==
LOC: ED 22:40 → SUATTDRO 09-06 07:48 → EDHOLD 09-06 07:48 → ICU 09-06 12:32 → MEDTELE 09-07 03:11
PROVIDERS: ADMIT Student in an Organized Health Care Education/Training Program; ATTEND Internal Medicine

== ENCOUNTER 2023-10-10 09:40 | Inpatient (IN) ==
[2023-10-10 11:21] LABS: ABS Basophils 0.1 10^3/uL (0.0-0.1); ABS Lymphocytes 0.4 10^3/uL (1.0-4.8); ABS Neutrophils 14.4 10^3/uL (1.5-7.6); ABS Nucleated RBC 0.01 10^3/ul; Hematocrit 47.2 % (38-53); Hemoglobin 16.5 g/dL (13.2-16.3); Lymphocyte % 2.2 %; Mean Corpuscular Hemoglobin 33.4 pg (27-33); Mean Corpuscular Hgb Conc 34.9 g/dL (31-36); Mean Corpuscular Volume 95.6 fL (80-97); Mean Platelet Volume 8.6 fL (7.5-11.2); Platelet Count 138 10^3/uL (150-450); Red Blood Count 4.93 10^6/uL (4.06-5.63); Red Cell Distribution Width 13.9 % (12-17); White Blood Count 15.8 10^3/uL (3.6-10.2)
[2023-10-10] MEDS: Lactated Ringers 1000 ml BAG 1,000 ML IV ONE (11:31)
[2023-10-10] MEDS: diazePAM INJ CARPUJECT 5 MG/ML SYRINGE IV ONE (12:02)
[2023-10-10] MEDS: Thiamine 100 MG/ML 2 ml VIAL (200 mg) IM ONE (12:02)
[2023-10-10 12:15] LABS: Albumin 3.5 g/dL (3.2-5.2); Albumin/Globulin Ratio 1.1 (1-3); Calcium 8.7 mg/dL (8.6-10.3); Creatinine, Serum 0.58 mg/dL (0.67-1.17); Globulin 3.2 g/dL (2-4); Magnesium 1.6 mg/dL (1.9-2.7); Potassium 3.9 mmol/L (3.5-5.0); Total Bilirubin 1.2 mg/dL (0.2-1.0); Total Protein 6.7 g/dL (6.4-8.9); eGFR CKD-EPI 104.9 (>60)
[2023-10-10 12:41] LABS: High Sensitivity Troponin 1 Hr 24 pg/mL (<20)
[2023-10-10] MEDS: Multivitamins/Minerals TAB PO SCH ×2 (12:54→14:23)
[2023-10-10] MEDS: Lactated Ringers SEPSIS* BAG 2,180 ML IV ONE (12:54)
[2023-10-10] MEDS: Cefepime 2 GM in Dextrose 2 GM/50 ML BAG IV ONE (12:54)
[2023-10-10] MEDS ORDERED: Magnesium Sulfate 2 gm BAG 0 GM/0 ML BAG ONE (13:42)
[2023-10-10] MEDS: Magnesium Sulfate 2 gm BAG 2 GM/50 ML BAG IVPB ONE (13:46)
[2023-10-10] MEDS: Digoxin IV 0.5 MG/2 ML AMP (0.25 MG/ML) IV SLOW PU ONE (14:27)
[2023-10-10] MEDS: Metoprolol Tartrate 5 mg VIAL 5 ml VIAL (1 mg/ml) IV PRN (14:36)
[2023-10-10 14:46] LABS: C Reactive Protein 4.65 mg/L (<8.01)
[2023-10-10] MEDS: Enoxaparin 80 MG/0.8 ML SYR SUBCUT SCH (18:00)
[2023-10-10] MEDS: Magnesium Sulf 4 GM/100 ML IV 4,000 MG/100 ML BAG IVPB ONE (18:02)
[2023-10-11 08:33] LABS: ABS Basophils 0.1 10^3/uL (0.0-0.1); ABS Lymphocytes 0.9 10^3/uL (1.0-4.8); ABS Monocytes 1.1 10^3/uL (0.0-1.1); ABS Neutrophils 9.2 10^3/uL (1.5-7.6); ABS Nucleated RBC 0.01 10^3/ul; Eosinophil % 0.3 %; Hematocrit 43.3 % (38-53); Hemoglobin 14.6 g/dL (13.2-16.3); Lymphocyte % 7.6 %; Mean Corpuscular Hemoglobin 32.3 pg (27-33); Mean Corpuscular Hgb Conc 33.7 g/dL (31-36); Mean Corpuscular Volume 95.7 fL (80-97); Mean Platelet Volume 8.9 fL (7.5-11.2); Nucleated Red Blood Cells % 0.1 %/100WBC (0.0-0.8); Platelet Count 103 10^3/uL (150-450); Red Blood Count 4.52 10^6/uL (4.06-5.63); White Blood Count 11.3 10^3/uL (3.6-10.2)
[2023-10-11 09:08] LABS: Calcium 8.4 mg/dL (8.6-10.3); Creatinine, Serum 0.46 mg/dL (0.67-1.17); Magnesium 2.1 mg/dL (1.9-2.7); eGFR CKD-EPI 112.5 (>60)
[2023-10-11 10:00] LABS: Potassium 2.6 mmol/L (3.5-5.0)
[2023-10-11] MEDS: Potassium EFFERVES 25 meq TAB PO ONE (11:11)
[2023-10-11] MEDS ORDERED: Sulfur Hexaflouride MICROSPHR 25 MG VIAL ONE (14:13)
[2023-10-11] MEDS: Sulfur Hexaflouride MICROSPHR 25 MG VIAL IV ONE (14:43)
[2023-10-12 06:57] LABS: Calcium 8.4 mg/dL (8.6-10.3); Creatinine, Serum 0.48 mg/dL (0.67-1.17); Magnesium 1.7 mg/dL (1.9-2.7); Potassium 2.5 mmol/L (3.5-5.0); eGFR CKD-EPI 111.1 (>60)
[2023-10-12 06:58] LABS: Hematocrit 40.9 % (38-53); Hemoglobin 13.6 g/dL (13.2-16.3); Mean Corpuscular Hemoglobin 32.3 pg (27-33); Mean Corpuscular Hgb Conc 33.2 g/dL (31-36); Mean Corpuscular Volume 97.2 fL (80-97); Red Cell Distribution Width 14.2 % (12-17); White Blood Count 7.4 10^3/uL (3.6-10.2)
[2023-10-12 07:39] LABS: ABS Basophils 0.1 10^3/uL (0.0-0.1); ABS Eosinophils 0.1 10^3/uL (0.0-0.5); ABS Monocytes 0.9 10^3/uL (0.0-1.1); ABS Neutrophils 5.5 10^3/uL (1.5-7.6); Eosinophil % 1.2 %; Lymphocyte % 12.9 %; Nucleated Red Blood Cells % 0.1 %/100WBC (0.0-0.8); Platelet Count 95 10^3/uL (150-450)
[2023-10-12] MEDS: Potassium Chlor 20 meq TAB.ER PO ONE (08:21)
[2023-10-12] MEDS: KCL 20 MEQ/100 ML IVPREMIX 20 MEQ/100 ML BAG IV SCH (08:22)
[2023-10-12] MEDS: Magnesium Sulf 4 GM/100 ML IV 4,000 MG/100 ML BAG IVPB ONE (11:06)
[2023-10-12 16:47] LABS: Calcium 8.7 mg/dL (8.6-10.3); Creatinine, Serum 0.48 mg/dL (0.67-1.17); Potassium 3.1 mmol/L (3.5-5.0); eGFR CKD-EPI 111.1 (>60)
[2023-10-13 05:57] LABS: Calcium 8.6 mg/dL (8.6-10.3); Creatinine, Serum 0.45 mg/dL (0.67-1.17); Magnesium 1.7 mg/dL (1.9-2.7); Potassium 2.7 mmol/L (3.5-5.0); eGFR CKD-EPI 113.3 (>60)
[2023-10-13] MEDS: Magnesium Sulfate 2 gm BAG 2 GM/50 ML BAG IVPB ONE (06:38)
[2023-10-13] MEDS: Potassium Chlor 20 meq TAB.ER PO ONE ×2 (06:38→15:39)
[2023-10-13] MEDS ORDERED: Potassium EFFERVES 25 meq TAB PO ONE (08:28)
[2023-10-13] MEDS: KCL 20 MEQ/100 ML IVPREMIX 20 MEQ/100 ML BAG IV SCH (10:23)
[2023-10-13] MEDS: Potassium EFFERVES 25 meq TAB PO ONE (10:24)
[2023-10-13 13:25] LABS: ALT 13 U/L (7-52); AST 27 U/L (13-39); Albumin/Globulin Ratio 1.1 (1-3); Alkaline Phosphatase 104 U/L (35-149); Anion Gap 8 mmol/L (2-16); Blood Urea Nitrogen 8 mg/dL (6-24); CO2 Carbon Dioxide 33 mmol/L (22-32); Calcium 8.7 mg/dL (8.6-10.3); Chloride 98 mmol/L (101-111); Creatinine, Serum 0.45 mg/dL (0.67-1.17); Globulin 2.7 g/dL (2-4); Glucose 119 mg/dL (70-100); Potassium 3.3 mmol/L (3.5-5.0); Sodium 139 mmol/L (135-145); Total Bilirubin 1.2 mg/dL (0.2-1.0); Total Protein 5.7 g/dL (6.4-8.9); eGFR CKD-EPI 113.3 (>60)
[2023-10-13 15:57] LABS: Folate > 20.00 ng/mL (5.90-24.80)
[2023-10-13 15:58] LABS: Vitamin B12 214 pg/mL (180-914)
[2023-10-13] MEDS: Nystatin TOP POWDER 15 GM BTL TOPICAL SCH (21:36)
[2023-10-14 06:14] LABS: ABS Basophils 0.1 10^3/uL (0.0-0.1); ABS Eosinophils 0.1 10^3/uL (0.0-0.5); ABS Lymphocytes 1.2 10^3/uL (1.0-4.8); ABS Monocytes 1.1 10^3/uL (0.0-1.1); ABS Neutrophils 4.4 10^3/uL (1.5-7.6); Eosinophil % 2.2 %; Hematocrit 39.5 % (38-53); Hemoglobin 13.1 g/dL (13.2-16.3); Lymphocyte % 17.8 %; Mean Corpuscular Hemoglobin 32.3 pg (27-33); Mean Corpuscular Hgb Conc 33.2 g/dL (31-36); Mean Corpuscular Volume 97.3 fL (80-97); Mean Platelet Volume 8.4 fL (7.5-11.2); Platelet Count 121 10^3/uL (150-450); Red Blood Count 4.06 10^6/uL (4.06-5.63); White Blood Count 6.9 10^3/uL (3.6-10.2)
[2023-10-14 06:36] LABS: Calcium 8.6 mg/dL (8.6-10.3); Creatinine, Serum 0.47 mg/dL (0.67-1.17); Magnesium 1.6 mg/dL (1.9-2.7); Potassium 3.1 mmol/L (3.5-5.0); eGFR CKD-EPI 111.8 (>60)
[2023-10-14] MEDS: KCL 10 MEQ/50 ML IVPREMIX 10 MEQ/50 ML BAG IV SCH (08:15)
[2023-10-14] MEDS: Magnesium Sulfate 2 gm BAG 2 GM/50 ML BAG IVPB ONE (08:15)
[2023-10-14] MEDS: Potassium EFFERVES 25 meq TAB PO ONE ×2 (08:16→10:50)
[2023-10-15 06:18] LABS: ABS Eosinophils 0.2 10^3/uL (0.0-0.5); ABS Lymphocytes 1.5 10^3/uL (1.0-4.8); ABS Neutrophils 4.4 10^3/uL (1.5-7.6); ABS Nucleated RBC 0.01 10^3/ul; Eosinophil % 2.5 %; Hematocrit 37.8 % (38-53); Hemoglobin 12.8 g/dL (13.2-16.3); Mean Corpuscular Hemoglobin 32.7 pg (27-33); Mean Corpuscular Hgb Conc 33.8 g/dL (31-36); Mean Corpuscular Volume 96.7 fL (80-97); Mean Platelet Volume 8.7 fL (7.5-11.2); Nucleated Red Blood Cells % 0.1 %/100WBC (0.0-0.8); Platelet Count 124 10^3/uL (150-450); Red Blood Count 3.91 10^6/uL (4.06-5.63); Red Cell Distribution Width 14.4 % (12-17); White Blood Count 7.1 10^3/uL (3.6-10.2)
[2023-10-15 06:51] LABS: Calcium 8.7 mg/dL (8.6-10.3); Creatinine, Serum 0.47 mg/dL (0.67-1.17); Magnesium 1.7 mg/dL (1.9-2.7); Potassium 3.8 mmol/L (3.5-5.0); eGFR CKD-EPI 111.8 (>60)
[2023-10-15 14:11] VITALS: BP 146/109
== END 2023-10-15 15:08 | disposition home or self-care (01) | DRG 309 ==
LOC: ED 09:40 → EDHOLD 09:40 → SUATTDRO 13:49 → MEDTELE 14:20
PROVIDERS: ADMIT Student in an Organized Health Care Education/Training Program; ATTEND Internal Medicine